=== PATIENT | male | born 1960 | race Caucasian/White ===

== ENCOUNTER 2023-11-03 21:46 | Inpatient (IN) | payer OTHER, SELFPAY ==
[2023-11-03] VITALS (10 sets, daily range): BP systolic 133–198; BP diastolic 58–108; PULSE 84–104; RESP 10–25; TEMP 37.9–38.1; O2SAT 91–100
--- NOTE | 2023-11-03 21:49 | XRR_ITS ---
PROCEDURE INFORMATION: Exam: XR Chest Exam date and time: 11/03/2023 9:56 PM Age: 62 years old Clinical indication: Other: Seizurelike activity; Patient HX: Cough; Labored breathing; Seizures TECHNIQUE: Imaging protocol: Radiologic exam of the chest. Views: 1 view. COMPARISON: No relevant prior studies available. FINDINGS: Tubes, catheters and devices: EKG monitoring leads overlie the thoracic wall. Lungs: There is no consolidation. Pleural spaces: No pleural effusion or pneumothorax. Heart/Mediastinum: The heart and mediastinum are normal in size. Bones/joints: Unremarkable. XR/XR chest 1V portable [id number] IMPRESSION: No acute findings.
--- NOTE | 2023-11-03 21:49 | CTR_ITS ---
PROCEDURE INFORMATION: Exam: CT Head Without Contrast Exam date and time: 11/03/2023 9:45 PM Age: 62 years old Clinical indication: Stroke-like symptoms; Speech disturbance and visual disturbance; RT upper extremity and RT lower extremity weakness; Additional info: EMS arrival for possible stroke. EMS reports bystanders witnessed patient have a seizure with collapse. Patient presents to er with RT fixed gaze, aphasia, and RT upper and lower ext weakness. TECHNIQUE: Imaging protocol: Computed tomography of the head without contrast. Radiation optimization: All CT scans at this facility use at least one of these dose optimization techniques: automated exposure control; mA and/or kV adjustment per patient size (includes targeted exams where dose is matched to clinical indication); or iterative reconstruction. Other technique: STROKE PROTOCOL was implemented. COMPARISON: No relevant prior studies available. RADIATION DOSE METRICS: Total DLP (mGy-cm): 2064.58 FINDINGS: Limitations: Streak and motion artifacts limit evaluation. Brain: There is no evidence of intracranial hemorrhage. No mass effect or midline shift. No territorial edema. There are moderate confluent periventricular hypodensities consistent with chronic microischemic changes of white matter. Encephalomalacia of the left temporoparietal region with scattered areas of calcification, consistent with remote infarction. Cerebral ventricles: Mild ex vacuo dilatation of the occipital horn of the left lateral ventricle. Paranasal sinuses: There are no air-fluid levels. Mastoid air cells: The visualized mastoid air cells are well aerated. Bones/joints: No acute fracture. Soft tissues: Unremarkable. CT/CT head thrombolytic 33114 IMPRESSION: 1. Encephalomalacia of the left temporoparietal region with scattered areas of calcification, consistent with remote infarction. 2. No acute intracranial findings. 3. Moderate cerebral small-vessel disease. ASSESSMENT: ASPECTS ([place] Stroke Program Early CT Score) is 10.
--- NOTE | 2023-11-03 21:57 | W.ED.SEIZURE ---
HPI - Seizure General: Chief Complaint: Neuro Symptoms/Deficit Stated Complaint: WEAKNESS Time Seen by Provider: 11/03/23 21:49 Source: EMS Mode of arrival: EMS Limitations: altered mental status History of Present Illness: HPI Narrative: 62-year-old male who is here by EMS patient had had a witnessed seizure at a hotel roughly an hour ago. Seizures unknown length EMS states that since then he has been confused with right-sided paralysis concern for possible stroke patient is unable to give any history here they state that he lives at the hotel they did not know any real history on him either he is not following any commands here. He does have right-sided paralysis. He appears to still be having possible seizure he does have a left-sided facial tics Review of Systems General: Reports: ROS unobtainable due to mental status PFS ED PFSH: Medical History (Updated 11/04/23 @ 00:30 by Michele Quigley MD) Chronic pain Osteoarthritis Glaucoma Family History (Updated 11/04/23 @ 00:30 by Michele Quigley MD) Son DVT (deep venous thrombosis) Social History (Updated 11/04/23 @ 00:28 by Michele Quigley MD) Smoking and tobacco/nicotine status: current every day tobacco/nicotine user Alcohol intake: current Alcohol intake frequency: holidays/special occasions only Lives independently: Yes Physical Exam Const: COMMON NORMALS: negative for patient oriented x3 GENERAL APPEARANCE: disheveled and frail appearing HENMT: COMMON NORMALS: normocephalic and atraumatic HEAD & SCALP: normocephalic and atraumatic Eye: COMMON NORMALS: Equal, round and reactive pupils present PUPIL: Yes Equal, round and reactive pupils present Neck/C-Spine: COMMON NORMALS: full ROM and supple Chest: COMMONS NORMALS: normal inspection of the chest and normal palpation of entire chest wall Resp: COMMON NORMALS: normal respiratory effort, No retractions, No use of accessory muscles and clear to auscultation bilaterally AUSCULTATION: clear to auscultation bilaterally Cardio: COMMON NORMALS: regular rate, regular rhythm and No murmurs present (Cardio) RATE: regular rate RHYTHM: regular rhythm GI: COMMON NORMALS: Normal to inspection, nondistended, normoactive bowel sounds present, Soft to palpation, non-tender and no masses PALPATION: Yes Soft to palpation Extremity: COMMON NORMALS: normal to inspection Neuro: COMMON NORMALS: negative for patient oriented x3 OTHER: Patient is awake but will not follow any commands he has right-sided paralysis. Psych: COMMON NORMALS: negative for mental status grossly normal Skin: COMMON NORMALS: no rashes or lesions noted and no wounds GENERAL SKIN EXAM: no rashes or lesions noted Procedures Lumbar Puncture Time Out Performed: Yes Patient Position: left lateral decubitus Skin Prep: Povidone-Iodine 1% Local Anesthetic: lidocaine 1% Amount of anesthesia used (mL): 3 Spinal Needle Gauge: 20G Interspace Used: L4-L5 Fluid Initially Obtained: clear Complications: none Procedural Sedation Indication: other (lumbar puncture) ASA Class: II Preparation: desk monitor applied and pulse oximeter IV Propofol dose (mg): 100 Patient Tolerated Procedure: well Complications: none Course Reevaluation(s): Reevaluation #1: Patient is now moving all extremities he is moving his right side well any difficulty he is still confused and is combative we will have to sedate him for CTA along with a lumbar puncture Time: 23:00 Vital Signs: Vital signs: Vital Signs Temperature 100.2 F H 11/03/23 22:18 Pulse Rate 84 11/03/23 23:25 Respiratory Rate 17 11/03/23 23:25 Blood Pressure 154/85 11/03/23 23:25 Pulse Oximetry 100 11/03/23 23:25 Oxygen Delivery Me thod Nasal Cannula 11/03/23 23:25 MDM - Seizure MDM Narrative Medical decision making narrative: Patient presents here after a seizure he did have right-sided paralysis likely from his seizure. I did speak to his son he has been using methamphetamine heavily over the last year is likely altered here as well due to his postictal state and meth abuse. I have spoke to neurologist at [facility] Dr. Nuñez after his head CT and his CTA he reviewed both images and spoke to the radiologist he believes that the thrombus noted on the CTA is from his old stroke and does not believe that it is acute patient does now have movement to all extremities he is still confused. Neurologist [facility] did not recommended lytics or thrombectomy he believes this is likely from his old stroke and his seizure. Did do a lumbar puncture for he does have a few white cells and polys will get blood cultures follow CSF cultures and start antibiotics at this time. I spoke to the hospitalist here and will admit to the ICU. Lab Data 11/03/23 22:07 11/03/23 22:07 Labs: Radiology Impressions Chest X-Ray 11/03/23 21:49 IMPRESSION: No acute findings. Head CT 11/03/23 21:49 IMPRESSION: 1. Encephalomalacia of the left temporoparietal region with scattered areas of calcification, consistent with remote infarction. 2. No acute intracranial findings. 3. Moderate cerebral small-vessel disease. ASSESSMENT: ASPECTS ([place]ia Stroke Program Early CT Score) is 10. ADDENDUM: 11/03/23 2234 THIS REPORT CONTAINS FINDINGS THAT MAY BE CRITICAL TO PATIENT CARE. The findings were verbally communicated via telephone conference with WILNER PHAM at 10:33 PM PHARMACOVIGILANCE SAFETY EXPERT on 11/03/2023. The findings were acknowledged and understood. ADDENDUM: 11/04/23 0102 The correct statement is as follows: Encephalomalacia of the left temporo-occipital region. Head/Neck CTA 11/03/23 22:10 IMPRESSION: Left distal M1 segment occlusion, acute versus chronic. IMPRESSION: 1. Normal right and left extracranial internal carotid arteries by NASCET criteria. 2. Patent bilateral vertebral arteries. THIS REPORT CONTAINS FINDINGS THAT MAY BE CRITICAL TO PATIENT CARE. The findings were verbally communicated via telephone conference with WILNER PHAM at 12:33 AM PHARMACOVIGILANCE SAFETY EXPERT on 11/04/2023. The findings were acknowledged and understood. Findings were discussed with Dr. Nuñez at 11/04/2023 12:50 AM PHARMACOVIGILANCE SAFETY EXPERT. REFERENCES: NASCET CRITERIA. The degree of stenosis in the cervical segment of the internal carotid artery is based on NASCET criteria. Normal is no stenosis. Mild is less than 50% stenosis. Moderate is 50-69% stenosis. Severe is 70% to 99% stenosis. Total occlusion is no detectable patent lumen. Laboratory Results WBC 14.62 10^3/uL (3.29-11.43) H 11/03/23 22:07 RBC 4.82 10^6/uL (3.85-5.65) 11/03/23 22:07 Hgb 15.30 g/dL (11.27-16.99) 11/03/23 22:07 Hct 46.2 % (37-53) 11/03/23 22:07 MCV 95.9 fl (82-101) 11/03/23 22:07 MCH 31.7 pg (27-33) 11/03/23 22:07 MCHC 33.1 g/dL (30-55) 11/03/23 22:07 RDW 13.0 % (12.1-15.1) 11/03/23 22:07 Plt Count 300 10^3/cmm (157-399) 11/03/23 22:07 MPV 8.9 fL (7.4-10.4) 11/03/23 22:07 Neut % (Auto) 84.1 % 11/03/23 22:07 Lymph % (Auto) 11.6 % 11/03/23 22:07 [place] % (Auto) 3.8 % 11/03/23 22:07 Eos % (Auto) 0.0 % 11/03/23 22:07 Baso % (Auto) 0.2 % 11/03/23 22:07 Neut # (Auto) 12.30 10^3/uL (1.8-7.7) H 11/03/23 22:07 Lymph # (Auto) 1.7 10^3/uL (0.8-4.8) 11/03/23 22:07 [place] # (Auto) 0.6 10^3/uL (0.2-0.9) 11/03/23 22:07 Eos # (Auto) 0.0 10^3/uL (0.0-0.8) 11/03/23 22:07 Baso # (Auto) 0.0 10^3/uL (0.0-0.1) 11/03/23 22:07 Nucleated RBC % (auto) 0 % 11/03/23 22:07 Nucleated RBCs # 0.0 /100WBC 11/03/23 22:07 PT 13.40 SECONDS (12.1-14.9) 11/03/23 22:07 INR 0.99 (0.8-1.2) 11/03/23 22:07 APTT 24.8 SECONDS (23.9-36.7) 11/03/23 22:07 Sodium 133 mmol/L (136-145) L 11/03/23 22:07 Potassium 4.2 mmol/L (3.5-5.1) 11/03/23 22:07 Chloride 95 mmol/L (98-107) L 11/03/23 22:07 Carbon Dioxide 27 mmol/L (22-29) 11/03/23 22:07 Anion Gap 15.2 (5-19) 11/03/23 22:07 BUN 9 mg/dL (8-23) 11/03/23 22:07 Creatinine 0.8 mg/dL (0.7-1.2) 11/03/23 22:07 GFR Calculation 98.3 mL/min (90-130) 11/03/23 22:07 Glucose 121 mg/dL (65-115) H 11/03/23 22:07 POC Glucose 112 mg/dL (70-110) H 11/03/23 22:06 Calculated Osmolality 276 mOsm/kg (285-295) L 11/03/23 22:07 Calcium 10.1 mg/dL (8.5-10.5) 11/03/23 22:07 Total Bilirubin 0.4 mg/dL (0.15-1.2) 11/03/23 22:07 AST 15 U/L (0-40) 11/03/23 22:07 ALT 14 U/L (0-41) 11/03/23 22:07 Alkaline Phosphatase 74 U/L (40-130) 11/03/23 22:07 Total Protein 7.7 g/dL (6.6-8.7) 11/03/23 22:07 Albumin 4.3 g/dL (3.5-5.2) 11/03/23 22:07 Globulin 3.4 g/dL (1.3-4.6) 11/03/23 22:07 Urine Color Yellow (Yellow) 11/03/23 23:10 Urine Appearance Cloudy (CLEAR) A 11/03/23 23:10 Urine pH 7 (5-7) 11/03/23 23:10 Ur Specific [place] 1.005 (1.005-1.030) 11/03/23 23:10 Urine Protein Trace (Negative) 11/03/23 23:10 Urine Glucose (UA) Norm (Normal) 11/03/23 23:10 Urine Ketones 1+ (Negative) H 11/03/23 23:10 Urine Blood 3+ (Negative) H 11/03/23 23:10 Urine Nitrate Negative (Negative) 11/03/23 23:10 Urine Bilirubin Neg (Negative) 11/03/23 23:10 Urine Urobilinogen Norm mg/dL (Negative) 11/03/23 23:10 Ur Leukocyte Esterase Negative (Negative) 11/03/23 23:10 Urine RBC 25-40 /hpf (0-2) H 11/03/23 23:10 Urine WBC 0-4 /hpf (0-5) H 11/03/23 23:10 Ur Squamous Epith Cells 0-4 /hpf (0-5) H 11/03/23 23:10 Amorphous Sediment Not Reportable 11/03/23 23:10 Urine Bacteria Trace /hpf (NONE) 11/03/23 23:10 CSF Appearance Clear (CLEAR) 11/03/23 23:40 CSF Color Colorless (COLORLESS) 11/03/23 23:40 CSF WBC 13 /uL (0-5) H 11/03/23 23:40 CSF RBC 0 10^3/uL (0-0) 11/03/23 23:40 CSF Mononuclear # Auto 0.002 10^3/uL (50-90) L 11/03/23 23:40 CSF Mononuclear WBCs % 15 % (50-90) L 11/03/23 23:40 CSF Polynuclear WBCs # 0.011 10^3/uL (0-10) 11/03/23 23:40 CSF Polynuclear WBCs % 85 % (0-10) H 11/03/23 23:40 CSF Diff Comment Yes 11/03/23 23:40 CSF Glucose 68 mg/dL (40-70) 11/04/23 Unknown CSF Total Protein 46 mg/dL (15-45) H 11/03/23 23:40 Urine Opiates Screen Negative ng/mL (Negative) 11/03/23 23:10 Ur Barbiturates Screen Negative ng/mL (Negative) 11/03/23 23:10 Ur Phencyclidine Scrn Negative ng/mL (Negative) 11/03/23 23:10 Ur Amphetamines Screen Positive ng/mL (Negative) H 11/03/23 23:10 U Benzodiazepines Scrn Positive ng/mL (Negative) H 11/03/23 23:10 Urine Cocaine Screen Negative ng/mL (Negative) 11/03/23 23:10 U Marijuana (THC) Screen Positive ng/mL (Negative) H 11/03/23 23:10 Ethyl Alcohol < 10 mg/dL (0-10) 11/03/23 22:07 Influenza Type A Ag negative (Negative) 11/03/23 22:23 Influenza Type B Ag negative (Negative) 11/03/23 22:23 SARS-CoV-2 Ag (Rapid) negative (Negative) 11/03/23 22:23 All radiology interpretation(s) finalized by discharge EKG Data EKG 1: Attestation: I personally reviewed and interpreted this EKG as follows: EKG interpretation date: 11/03/23 EKG interpretation time: 22:00 Interpretation: nsr hr [address] or t wave abnormalities qrs 78 qtc 368 Critical Care Time Critical Care Time: Critical Care Time: Yes Total Critical Care Time: 45 Attestation: The high probability of a clinically significant, sudden or life threatening deterioration of the patient's neuro system(s) required my full and direct attention, intervention and personal management. The critical care time is as shown. This time is in addition to time spent performing any reported procedures but includes the following: [x] Data and vital sign review and interpretation [x] Patient assessment, examination and intervention [x] Documentation [x] Medication orders and management Discharge Plan Discharge Patient Disposition: Admitted As Inpatient Clinical Impression: Seizure, Methamphetamine abuse Condition: Stable Coding Level of Care Code ED Home Care Physical Therapist for Edgar Patel NIH stroke score NIHSS Level Of Consciousness - 1a: 2 Level Of Consciousness Questions - 1b: Neither Correct Level Of Consciousness Commands - 1c: Neither Correct Best Gaze - 2: Partial Gaze Palsy Visual Steinberg - 3: No Visual Loss Facial Palsy - 4: Minor Paralysis Motor Arm Right - 5: No Movement Motor Arm Left - 5: No Drift Motor Leg Right - 6: No Movement Motor Leg Left - 6: No Drift Limb Ataxia - 7: Absent Sensory - 8: Normal Best Language - 9: Mute; Global Aphasia Dysarthia - 10: Normal Extinction And Inattention - 11: 1 Score Total Score: 20
--- NOTE | 2023-11-03 22:00 | ECG_ITS ---
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 Measurements Intervals [place] Rate: 93 P: 84 NC: 151 QRS: 75 QRSD: 78 T: 58 QT: 317 QTc: 396 Interpretive Statements SINUS RHYTHM POSSIBLE LEFT ATRIAL ENLARGEMENT [-0.1mV P-WAVE IN V1/V2] MINIMAL ST DEPRESSION [0.025+ mV ST DEPRESSION] No previous ECG available for comparison Electronically Signed On 11-04-2023 7:49:22 COUNTER CHECKER by Lewis Hardin M.D. [id number]
[2023-11-03] MEDS: LORazepam 2 mg/mL INJ 10 mL MDV IVP (22:03)
[2023-11-03 22:08] LABS: Glucose Point of Care 112 mg/dL (70-110)
--- NOTE | 2023-11-03 22:10 | CTR_ITS ---
PROCEDURE INFORMATION: Exam: CTA Head With Contrast, Arteriography Exam date and time: 11/03/2023 11:28 PM Age: 62 years old Clinical indication: Speech disturbance and weakness; Patient HX: EMS arrival for possible stroke. EMS reports bystanders witnessed patient have a seizure with collapse. Patient presents to er with RT fixed gaze, aphasia, and RT upper and lower ext weakness. ; Additional info: CVA TECHNIQUE: Imaging protocol: Computed tomographic angiography of the head with contrast. Exam focused on the arteries. 3D rendering (Not supervised by radiologist): MIP and/or 3D reconstructed images were created by the technologist. Radiation optimization: All CT scans at this facility use at least one of these dose optimization techniques: automated exposure control; mA and/or kV adjustment per patient size (includes targeted exams where dose is matched to clinical indication); or iterative reconstruction. Contrast material: OMNI 350; Contrast volume: 200 ml; Contrast route: INTRAVENOUS (IV); COMPARISON: CT head thrombolytic [id number] 11/03/2023 9:45 PM RADIATION DOSE METRICS: Total DLP (mGy-cm): 1045.91 FINDINGS: ANTERIOR CIRCULATION: Right internal carotid artery: Intracranial segment is patent with no significant stenosis. No aneurysm. Right middle cerebral artery: No occlusion or significant stenosis. No aneurysm. Right anterior cerebral artery: No occlusion or significant stenosis. No aneurysm. Left internal carotid artery: Intracranial segment is patent with no significant stenosis. No aneurysm. Left middle cerebral artery: Left distal M1 segment occlusion. There is a very small M2 segment vessel arising from the area of the occlusion, raising the question of an acute versus chronic, partially recanalized occlusion. Left anterior cerebral artery: No occlusion or significant stenosis. No aneurysm. POSTERIOR CIRCULATION: Right vertebral artery: No occlusion or significant stenosis. No aneurysm. Left vertebral artery: No occlusion or significant stenosis. No aneurysm. Basilar artery: No occlusion or significant stenosis. No aneurysm. Right posterior cerebral artery: No occlusion or significant stenosis. No aneurysm. Left posterior cerebral artery: No occlusion or significant stenosis. No aneurysm. Brain: No definite mass, mass effect, or midline shift. Encephalomalacia left posterior temporo-occipital area. Cerebral ventricles: No ventriculomegaly. Bones/joints: Unremarkable. No acute fracture. Soft tissues: Unremarkable. PROCEDURE INFORMATION: Exam: CTA Neck With Contrast Exam date and time: 11/03/2023 11:28 PM Age: 62 years old Clinical indication: Speech disturbance and weakness; Patient HX: EMS arrival for possible stroke. EMS reports bystanders witnessed patient have a seizure with collapse. Patient presents to er with RT fixed gaze, aphasia, and RT upper and lower ext weakness. ; Additional info: CVA TECHNIQUE: Imaging protocol: Computed tomographic angiography of the neck with contrast. Exam focused on the cervical segments of the vasculature. 3D rendering (Not supervised by radiologist): MIP and/or 3D reconstructed images were created by the technologist. Radiation optimization: All CT scans at this facility use at least one of these dose optimization techniques: automated exposure control; mA and/or kV adjustment per patient size (includes targeted exams where dose is matched to clinical indication); or iterative reconstruction. Contrast material: OMNI 350; Contrast volume: 200 ml; Contrast route: INTRAVENOUS (IV); COMPARISON: CT head thrombolytic [id number] 11/03/2023 9:45 PM RADIATION DOSE METRICS: Total DLP (mGy-cm): 1045.91 FINDINGS: Right common carotid artery: No significant stenosis. No dissection or occlusion. Right internal carotid artery: No significant stenosis of the extracranial segment. No dissection or occlusion. Right external carotid artery: No occlusion or significant stenosis of the origin. Left common carotid artery: No significant stenosis. No dissection or occlusion. Left internal carotid artery: Mild dilatation at the carotid bifurcation suggestive of post endarterectomy changes. No stenosis or occlusion. Left external carotid artery: No occlusion or significant stenosis of the origin. Right vertebral artery: No significant stenosis. No dissection or occlusion. Left vertebral artery: No significant stenosis. No dissection or occlusion. Soft tissues: No significant soft tissue swelling. Bones/joints: No acute fracture.Multilevel degenerative disc disease without significant spinal canal stenosis. Lungs: Centrilobular emphysema. CT/CT angio headneck* [id number] IMPRESSION: Left distal M1 segment occlusion, acute versus chronic. IMPRESSION: 1. Normal right and left extracranial internal carotid arteries by NASCET criteria. 2. Patent bilateral vertebral arteries. THIS REPORT CONTAINS FINDINGS THAT MAY BE CRITICAL TO PATIENT CARE. The findings were verbally communicated via telephone conference with WILNER PHAM at 12:33 AM CLINICAL FELLOW on 11/04/2023. The findings were acknowledged and understood. Findings were discussed with Dr. Nuñez at 11/04/2023 12:50 AM CLINICAL FELLOW. REFERENCES: NASCET CRITERIA. The degree of stenosis in the cervical segment of the internal carotid artery is based on NASCET criteria. Normal is no stenosis. Mild is less than 50% stenosis. Moderate is 50-69% stenosis. Severe is 70% to 99% stenosis. Total occlusion is no detectable patent lumen.
[2023-11-03] MEDS: levETIRAcetam 1,000 MG/100 ML PREMIX 400 MG IV (22:15)
[2023-11-03] MEDS: acetaminophen 650 mg Supp PR (22:15)
[2023-11-03 22:20] LABS: Basophils % 0.2 %; Hematocrit 46.2 % (37-53); Lymphocytes # 1.7 10^3/uL (0.8-4.8); Lymphocytes % 11.6 %; Mean Corpuscular HGB Conc 33.1 g/dL (30-55); Mean Corpuscular Hemoglobin 31.7 pg (27-33); Mean Corpuscular Volume 95.9 fl (82-101); Mean Platelet Volume 8.9 fL (7.4-10.4); Monocytes # 0.6 10^3/uL (0.2-0.9); Monocytes % 3.8 %; Neutrophils % 84.1 %; Nucleated Red Blood Cells % 0 %; Platelet Count 300 10^3/cmm (157-399); Red Blood Count 4.82 10^6/uL (3.85-5.65); White Blood Count 14.62 10^3/uL (3.29-11.43)
[2023-11-03 22:33] LABS: INR 0.99 (0.8-1.2)
[2023-11-03 22:34] LABS: Partial Thromboplastin Time 24.8 SECONDS (23.9-36.7)
[2023-11-03 22:37] LABS: Alanine Aminotransferase 14 U/L (0-41); Albumin Level 4.3 g/dL (3.5-5.2); Alkaline Phosphatase 74 U/L (40-130); Anion Gap 15.2 (5-19); Aspartate Amino Transferase 15 U/L (0-40); Blood Urea Nitrogen 9 mg/dL (8-23); Calcium 10.1 mg/dL (8.5-10.5); Carbon Dioxide 27 mmol/L (22-29); Chloride 95 mmol/L (98-107); Creatinine Clr Calc Pharmacy 68.4324; Globulin 3.4 g/dL (1.3-4.6); Glomerular Filtration Rate 98.3 mL/min (90-130); Glucose 121 mg/dL (65-115); Osmolality Calculated 276 mOsm/kg (285-295); Potassium 4.2 mmol/L (3.5-5.1); Sodium 133 mmol/L (136-145); Total Bilirubin 0.4 mg/dL (0.15-1.2); Total Protein 7.7 g/dL (6.6-8.7)
[2023-11-03 22:38] LABS: Alcohol Level < 10 mg/dL (0-10)
[2023-11-03 22:43] LABS: Influenza A by IFA negative (Negative); Influenza B by IFA negative (Negative)
[2023-11-03 22:44] LABS: SARS Covid-2 Antigen negative (Negative)
[2023-11-03] MEDS: iohexol 350 mg/mL 500 mL Btl (per mL) IV (22:48)
[2023-11-03] MEDS: LORazepam 2 mg/mL INJ 10 mL MDV IV (23:12)
--- NOTE | 2023-11-03 23:15 | PC.NURSE ---
Pt BP did not cycle due to constant pt movement. Pt BP @ 2316 146/82.
[2023-11-03 23:25] LABS: Amphetamines Screen Urine Positive (Negative); Barbiturates Screen Urine Negative (Negative); Benzodiazepines Screen Urine Positive (Negative); Cocaine Screen Urine Negative (Negative); Opiate Screen Urine Negative (Negative); PCP Screen Urine Negative (Negative); THC Screen Urine Positive (Negative)
[2023-11-03 23:29] LABS: Add Urine Culture? Yes; Add Urine Microscopic? YES; Bacteria Urine TRACE /hpf; Bilirubin Urine Neg (Negative); Blood Urine 3+ (Negative); Glucose Urine UA Norm (Normal); Ketones Urine 1+ (Negative); Leukocyte Esterase Urine Negative (Negative); Nitrate Urine Negative (Negative); Protein Urine Trace (Negative); RBC Urine 25-40 /hpf (0-2); Specific Gravity, Urine 1.005 (1.005-1.030); Squamous Epithelial Cell Urine 0-4 /hpf (0-5); Urine Appearance Cloudy (CLEAR); Urine Color Yellow (Yellow); Urobilinogen Urine Norm (Negative); WBC Urine 0-4 /hpf (0-5); pH Urine 7 (5-7)
[2023-11-03] MEDS: propofol 10 mg/mL SDV 20 mL 100 MG IVP (23:45)
[2023-11-03 23:49] LABS: Cyto Order Verification No Order
[2023-11-03 23:58] LABS: Appearance CSF CLEAR (CLEAR); Color CSF COLORLESS (COLORLESS); Pathology Referral Yes
[2023-11-04] VITALS (91 sets, daily range): BP systolic 76–162; BP diastolic 45–105; PULSE 44–134; RESP 0–27; TEMP 36–38.1; O2SAT 90–100; BMI 13.8; BMI 14.3
[2023-11-04 00:01] LABS: CSF Mononuclear # 0.002 10^3/uL (50-90); Mononuclear WBC CSF % 15 % (50-90); Polynuclear Cells ,CSF # 0.011 10^3/uL (0-10); Polynuclear WBC CSF % 85 % (0-10); Red Blood Cell CSF 0 10^3/uL (0-0); White Blood Cell CSF 13 /uL (0-5)
[2023-11-04 00:26] LABS: Total Protein CSF 46 mg/dL (15-45)
[2023-11-04 00:44] LABS: Glucose CSF 68 mg/dL (40-70)
--- NOTE | 2023-11-04 01:09 | PC.NURSE ---
Phelbotimist notified RN that she witnessed pt son remove belongings from pt pockets.
[2023-11-04] MEDS: cefTRIAXone 2,000 MG in sodium chloride 0.9% (plus) 50 ML 100 MG IV (01:58)
--- NOTE | 2023-11-04 02:06 | P.HP_ITS ---
Providers/Chief Complaint 2 Admitting Physician: Michele Quigley Chief Complaint: WEAKNESS History of Present Illness 62-year-old gentleman who had recently moved to the area was brought into ER for evaluation after episode of convulsions, eyes rolling to the back of his head and right-sided weakness. Last known normal sounds like was around 9 PM. Patient is unable to provide history, received Ativan and Keppra for seizure in ER which subsided, however, been postictal, lethargic confused, restless, moving about in bed. Unable to follow directions or provide history or ROS. His son states that he has not been feeling well for several days. He suffers from chronic pain, arthritis, which it seems that he had been attempting to self treat with marijuana and amphetamine but unsuccessfully. On CT of the head he is noted to have encephalomalacia left temporoparietal region with scattered areas of calcification consistent with remote infarction of which his son was unaware. His son does state that he has chronic issues with some weakness in his right hand. Convulsions send weakness both resolved in ER. CT angiogram was requested. He was noted to have low-grade 100.2, leukocytosis 14.6. He underwent lumbar puncture. CT angiogram returned with left distal M1 segment occlusion acute versus chronic. He was assessed by neurology who further reviewed the images with radiology and the occlusion was found to be chronic without recommendation for endovascular treatment. Per patient's son he is allergic to penicillin but he is not aware of what type of allergy and is not aware of his father having a reaction as long as he has known them. Possibly in childhood. He understands the risk of cross-reactivity with penicillin related antibiotics, and is okay with starting to medicate with supervision. Review of Systems 2 General: Reports: ROS unobtainable due to mental status Medications/Allergies Allergies Allergy/AdvReac Type Severity Reaction Status Date / Time Penicillins Allergy Unknown Unknown Unverified 11/04/23 00:31 PFSH Acute 2 PFSH: Medical History Chronic pain Osteoarthritis Glaucoma Family History Son DVT (deep venous thrombosis) Social History Smoking and tobacco/nicotine status: current every day tobacco/nicotine user Alcohol intake: current Alcohol intake frequency: holidays/special occasions only Lives independently: Yes Vitals/I&O/Wt Last Vital Signs Temp 100.2 F H 11/03/23 22:18 Pulse 98 11/03/23 23:36 Resp 24 H 11/03/23 23:36 BP 176/83 11/03/23 23:36 Pulse Ox 99 11/03/23 23:30 O2 Del Method Nasal Cannula 11/03/23 23:30 Weight last 48 hrs Weight 49.895 kg Physical Exam 2 Narrative: Accompanied by his son at bedside Const: COMMON NORMALS: negative for patient oriented x3 and negative for alert GENERAL APPEARANCE: not cooperative ORIENTATION/CONSCIOUSNESS: Yes confused and Yes lethargic; not awake HENMT: COMMON NORMALS: oropharynx normal Neck/C-Spine: COMMON NORMALS: no JVD Resp: COMMON NORMALS: normal respiratory effort and clear to auscultation bilaterally AUSCULTATION: clear to auscultation bilaterally Cardio: COMMON NORMALS: no JVD, regular rhythm, S1 normal heart sound present, S2 normal heart sound present and No murmurs present (Cardio) RHYTHM: regular rhythm HEART SOUNDS: S1 normal heart sound present and S2 normal heart sound present GI: COMMON NORMALS: Normal to inspection, nondistended, normoactive bowel sounds present, Soft to palpation and non-tender PALPATION: Yes Soft to palpation Extremity: COMMON NORMALS: no joint enlargement and no pedal edema Neuro: COMMON NORMALS: moves all extremities; negative for patient oriented x3 SENSORIUM/ORIENTATION: Yes alert OTHER: Confused, moving around in bed, occasionally rises up and opens his eyes, but does not follow directions. I do not appreciate facial droop. Otherwise unable to perform other examination, but he is appearing to move all his extremities. No rigidity Data 11/03/23 22:07 11/03/23 22:07 Micro: Microbiology 11/04/23 01:18 Blood Culture - Preliminary Blood SPECIMEN COLLECTED 11/04/23 01:15 Blood Culture - Preliminary Blood SPECIMEN COLLECTED A&P Assessment and plan (1) Seizure: GTC with convulsive episode at home, at the same time with focal neurological complaints, right-sided weakness, received Ativan, Keppra. Convulsions had resolved, he is postictal, right-sided weakness has resolved as well. Noted encephalomalacia in left parietotemporal region with suspected prior stroke. Continue Keppra. Would benefit from amphetamine cessation and medication of recurrent stroke risk factors. Seizure precautions. Follow-up with neurology. (2) Focal neurological deficit: Likely secondary to seizure but concern for superimposed acute CVA, neurology was consulted, M1 distal thrombosis on CT angiogram, but this was found to be old, no recommendation for endovascular therapy at this time. He is certainly at risk of CVA, cannot exclude additional small stroke but is outside the window for tPA. Recommendation for assessment with MRI brain when he is able to undergo the study. Hopefully tomorrow if mental status improves. Discussed with his son, definitely risk factors include methamphetamine abuse and cigarette smoking. Will need to discuss with him once he is more awake regarding cessation, risks, case management consultation for resources. (3) Fever: Has not been feeling well for several days. With low-grade fever 100.5 in ER. Unclear whether some degree of aspiration/pneumonitis associated with seizure, noted on 2 L nasal cannula. Lumbar puncture was obtained in ER, reviewed CSF studies with ER physician. Reviewed vitals, CBC, CMP, INR, UA, UDS, rapid influenza, rapid COVID, CT head, head and neck CTA, chest x-ray. Reviewed ER note, discussed presentation and condition with ER physician. Discussed with his son, CSF studies with more amount of WBCs, clear, 13 cells, 85% PMN, mildly elevated total protein minutely elevated total protein, glucose 68. Not overly suggestive of bacterial meningitis, but there are some PMN there. Possibly secondary to seizure. Lower possibility of early bacterial meningitis, discussed empiric coverage with antibiotics. He reportedly has had history of penicillin allergy but son is not aware of reaction and has not aware of him having had a reaction as long as he is not him, possibly childhood reaction. He is okay with trial of ceftriaxone, vancomycin. Will additionally add acyclovir. Assess MRI brain when possible. Follow-up CSF culture. Minimal microscopic hematuria in UA, otherwise not suggestive of UTI. Rocephin as above. Follow-up urine culture. Possible mild aspiration pneumonitis. Reassess respiratory condition and monitor oxygenation. Obtain respiratory viral panel. His son denies that he had other specific complaints, has not had any vomiting, diarrhea, rashes. Has had longstanding issues with chronic pain which he self treats with marijuana, methamphetamine which she smokes. Without known injection use. Blood cultures obtained. Follow-up. (4) Acute encephalopathy: Postictal after seizure, possible additional underlying flexion, possible early meningitis though suspect less likely, question of possible CVA. He has not been feeling well for several days. Additional workup as above. Reportedly only drinks a few beers on occasion. No regular alcohol use. Urine positive for amphetamines, monitor for any complications. Son denies synthetic marijuana use. (5) Methamphetamine abuse: Will need to discuss with him once he is more awake regarding cessation, risks, case management consultation for resources. Plan Microscopic hematuria: Follow-up urine culture. Will need follow-up for resolution of microscopic materia or additional workup in case of lack of resolution for causes including malignancy with history of smoking. Severe malnutrition: BMI 13.9, sarcopenia, please discuss with them further once he is able to communicate. Add protein supplements to meals. Confirm he is up-to-date with recommended screenings. 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 Chronic pain, osteoarthritis: Reportedly was recommended to take gabapentin in the past which he takes once a while. Smoking addiction. Will need to discuss with him once he is more awake regarding cessation, risks. Attestations 2 Medical Necessity Statement*: Admission of over 2 midnights anticipated for assessment and management of acute encephalopathy, seizure, focal neurologic deficit, possible CVA, fever, additional comorbidities as above. Diagnoses Seizure R56.9 Focal neurological deficit R29.818 Fever R50.9 Acute encephalopathy G93.40 Methamphetamine abuse F15.10
--- NOTE | 2023-11-04 02:16 | PC.NURSE ---
Physician Notification: Pt arrived to ICU 7 thrashing in bed, screaming, kicking legs continuously. Pt is not responsive to verbal deescalation. Dr. Quigley called at approximately 0215. Dr. Quigley reported that he would enter orders for Ativan.
[2023-11-04] MEDS: dexmedeTOMIDine 0.9 % NaCL 400 MCG/100 ML PREMIX 1.12999999999999989 MCG IV (02:46)
[2023-11-04] MEDS: sodium chloride 0.9% 1,000 ML 75 ML IV (02:47)
[2023-11-04] MEDS: LORazepam 2 mg/mL INJ 1 mL 1 MG IVP (03:39)
[2023-11-04] MEDS: vancomycin 1,000 MG in sodium chloride 0.9% 250 ML 250 MG IV (04:57)
[2023-11-04] MEDS: aspirin 300 mg Supp PR (04:58)
[2023-11-04 05:05] LABS: Basophils % 0.2 %; Hematocrit 39.6 % (37-53); Lymphocytes # 1.5 10^3/uL (0.8-4.8); Lymphocytes % 9.7 %; Mean Corpuscular HGB Conc 32.6 g/dL (30-55); Mean Corpuscular Hemoglobin 30.9 pg (27-33); Mean Platelet Volume 9.6 fL (7.4-10.4); Monocytes % 6.2 %; Neutrophils # 12.92 10^3/uL (1.8-7.7); Neutrophils % 83.4 %; Nucleated Red Blood Cells % 0 %; Platelet Count 262 10^3/cmm (157-399); Red Blood Count 4.17 10^6/uL (3.85-5.65); White Blood Count 15.48 10^3/uL (3.29-11.43)
[2023-11-04 05:17] LABS: Estmated Average Glucose 120; Hemoglobin A1C 5.8 % (4.0-6.0)
[2023-11-04 05:29] LABS: Alanine Aminotransferase 9 U/L (0-41); Albumin Level 3.6 g/dL (3.5-5.2); Alkaline Phosphatase 62 U/L (40-130); Anion Gap 12.6 (5-19); Aspartate Amino Transferase 13 U/L (0-40); Blood Urea Nitrogen 7 mg/dL (8-23); Calcium 9.2 mg/dL (8.5-10.5); Carbon Dioxide 26 mmol/L (22-29); Chloride 98 mmol/L (98-107); Creatinine Clr Calc Pharmacy 70.7426; Globulin 2.7 g/dL (1.3-4.6); Glomerular Filtration Rate 114.6 mL/min (90-130); Glucose 126 mg/dL (65-115); Magnesium 1.6 mg/dL (1.7-2.3); Osmolality Calculated 276 mOsm/kg (285-295); Potassium 3.6 mmol/L (3.5-5.1); Sodium 133 mmol/L (136-145); Total Bilirubin 0.2 mg/dL (0.15-1.2); Total Protein 6.3 g/dL (6.6-8.7)
[2023-11-04 05:33] LABS: Chol HDL Ratio 3.98 mg/dL (1.0-5.00); Cholesterol 163 mg/dL (0-200); HDL Cholesterol 41 mg/dL (60-100); LDL Cholesterol Calculated 108 mg/dL (50-129); LDL HDL Ratio 2.63 RATIO (0.00-3.22); Triglycerides 69 mg/dL (0-150)
[2023-11-04 07:00] LABS: Adenovirus Not Detected (NOT DETECT); Chlamydia Pneumoniae Not Detected (NOT DETECT); Coronavirus 229E,HKU1,NL63,OC4 Not Detected (NOT DETECT); Human Metapneumovirus Not Detected (NOT DETECT); Human Rhinovirus/Enterovirus Not Detected (NOT DETECT); Influenza A Not Detected (NOT DETECT); Influenza A H1 Not Detected (NOT DETECT); Influenza A H1-2009 Not Detected (NOT DETECT); Influenza A H3 Not Detected (NOT DETECT); Influenza B Not Detected (NOT DETECT); Mycoplasma Pneumoniae Not Detected (NOT DETECT); Parainfluenza Virus Type 1 Not Detected (NOT DETECT); Parainfluenza Virus Type 2 Not Detected (NOT DETECT); Parainfluenza Virus Type 3 Not Detected (NOT DETECT); Parainfluenza Virus Type 4 Not Detected (NOT DETECT); Respiratory Syncytial Virus A Not Detected (NOT DETECT); Respiratory Syncytial Virus B Not Detected (NOT DETECT); SARS-COV-2 Not Detected (NOT DETECT)
[2023-11-04] MEDS: SODIUM CHLORIDE 0.9% IV ×3 (07:51→23:10)
[2023-11-04] MEDS: pantoprazole 40 mg SDV IVP (07:51)
[2023-11-04] MEDS: ACYCLOVIR IV ×3 (07:51→23:10)
--- NOTE | 2023-11-04 09:15 | PC.PHAR ---
PT UNABLE TO VERIFY IF HE TAKES ANY MEDICATIONS. 11/04/23. LEFT MESSAGE WITH ARUN ENGLISH AND NO ANSWER FROM JARRETT JAY.
[2023-11-04] MEDS: haloperidol inj 5 mg/mL INJ 1 mL 2 MG IM (09:16)
[2023-11-04] MEDS: heparin 5,000 unit/mL INJ 1 mL 5000 UNIT SUBCUT ×2 (09:17→20:24)
[2023-11-04] MEDS: levETIRAcetam 1,000 MG/100 ML PREMIX 400 MG IV ×2 (09:17→21:47)
--- NOTE | 2023-11-04 09:53 | PC.PHAR ---
SISTER PHONED IN AND VERIFIED PT NOT TAKING ANY MEDICATIONS AT ALL AND PREFERS [facility] IF MEDICATIONS ARE NECESSARY.
--- NOTE | 2023-11-04 11:14 | PC.SLP ---
Nursing requested to hold evaluation until Sunday.
--- NOTE | 2023-11-04 11:37 | CTR_ITS ---
PROCEDURE INFORMATION: Exam: CT Chest Without Contrast; Diagnostic Exam date and time: 11/04/2023 1:25 PM Age: 62 years old Clinical indication: Other: Encephalopathy, anorexia, iv drug user TECHNIQUE: Imaging protocol: Diagnostic computed tomography of the chest without contrast. Radiation optimization: All CT scans at this facility use at least one of these dose optimization techniques: automated exposure control; mA and/or kV adjustment per patient size (includes targeted exams where dose is matched to clinical indication); or iterative reconstruction. COMPARISON: CR (CHEST, ) 11/03/2023 9:56 PM RADIATION DOSE METRICS: Total DLP (mGy-cm): 386.82 FINDINGS: Thyroid: Grossly unremarkable. Lungs: No focal consolidation. No pneumothorax. Pleural spaces: No pleural effusion. Heart: No cardiomegaly. No pericardial effusion. Coronary arteries: There are incidental coronary artery calcifications. Mediastinal space: Trachea and airway are grossly patent. No evidence of mediastinal hemorrhage or hematoma. Lymph nodes: No evidence of mediastinal adenopathy. Evaluation for hilar adenopathy is limited by lack of IV contrast. Vasculature: Mild atherosclerosis without aneurysmal dilatation of the thoracic aorta. Evaluation for acute vascular injury or thrombosis is limited by lack of IV contrast. Bones/joints: There is a soft tissue mass in the left paraspinal region extending into the left T8-9 neural foramen measuring approximately 3.5 cm transverse by 2.3 cm AP by 1.7 cm craniocaudal with smooth bony erosion of the left T8 transverse process/neural foramen. There appears to be extension into the transverse process (image 29 of the sagittal series 8). No evidence of acute fracture. Soft tissues: No evidence of fluid collection or hematoma in the superficial soft tissues. PROCEDURE INFORMATION: Exam: CT Abdomen And Pelvis Without Contrast Exam date and time: 11/04/2023 1:25 PM Age: 62 years old Clinical indication: Other: Encephalopathy, anorexia, iv drug user TECHNIQUE: Imaging protocol: Computed tomography of the abdomen and pelvis without contrast. Radiation optimization: All CT scans at this facility use at least one of these dose optimization techniques: automated exposure control; mA and/or kV adjustment per patient size (includes targeted exams where dose is matched to clinical indication); or iterative reconstruction. COMPARISON: CR (CHEST, ) 11/03/2023 9:56 PM RADIATION DOSE METRICS: Total DLP (mGy-cm): 386.82 FINDINGS: Liver: No evidence of focal hepatic lesion within limitation of a noncontrast exam. Hepatic cysts noted. Gallbladder and bile ducts: Vicarious excretion of contrast within the gallbladder is noted. Otherwise unremarkable. No evidence of intra-hepatic or extra-hepatic biliary dilatation. Pancreas: Grossly unremarkable. Spleen: Grossly unremarkable. Adrenal glands: Grossly unremarkable. Kidneys and ureters: There are simple appearing peripelvic renal cysts for which dedicated imaging follow-up is not required. Otherwise no evidence of renal parenchymal abnormality. No hydronephrosis or ureteral stone. Excreted contrast is noted within the renal collecting systems. Stomach and bowel: No evidence of bowel obstruction or perienteric inflammatory changes. Appendix: Normal appendix. Intraperitoneal space: No evidence of free air or fluid collection. Vasculature: Extensive aorto bi-iliac atherosclerosis without evidence of aneurysmal dilitation of abdominal aorta. Lymph nodes: No evidence of adenopathy. Urinary bladder: Distended with excreted contrast. Otherwise grossly unremarkable. Reproductive: Grossly unremarkable. Bones/joints: No evidence of acute fracture or aggresive osseous lesion. Soft tissues: No evidence of fluid collection or hematoma in the superficial soft tissues. CT/[place] [id number] IMPRESSION: 1. No evidence of acute abnormality within limitations of a noncontrast exam. 2. 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 Follow-up nonemergent MRI of the thoracic spine with/without contrast is recommended. IMPRESSION: 1. No evidence of acute abnormality in the abdomen or pelvis within limitations of a noncontrast exam.
--- NOTE | 2023-11-04 11:39 | ECG_ITS ---
[facility] Test Date: 2023-11-04 Pat Name: Reuben Fontanez Department: Room: [facility] Gender: Male House Superintendent: : 1960 Requested By: Dimitri Cruz Order Number: [id number] [place] MD: Lewis Hardin M.D. Measurements Intervals [place] Rate: 53 P: 75 ND: 155 QRS: 71 QRSD: 90 T: 64 QT: 465 QTc: 438 Interpretive Statements SINUS BRADYCARDIA Compared to ECG 11/03/2023 22:00:28 Sinus rhythm no longer present ST (T wave) deviation no longer present Electronically Signed On 11-04-2023 18:03:24 [employer]ENSIC SCIENCE EXAMINER by Lewis Hardin M.D. [id number]
--- NOTE | 2023-11-04 11:41 | PM.PN ---
Subjective Subjective: Patient was seen this morning, nursing staff at bedside, patient continues to be agitated does not follow commands pulling out at his IVs, he is in 2 point restraints, due to agitation, normotensive, no significant arrhythmia events, temperature is 96.8 he is on 3 L, pupils are equal round reactive to light, he looks disheveled, severely malnourished severe protein calorie malnutrition, severe physical deconditioning BMI 14.2, according to nursing staff and the report that they received, patient normally has good mentation, but functionally he remains in bed and according to family uses drugs such as amphetamines, on examination I cannot discern any tracking for IV drug use, no discernible skin lesions he does have several tattoos, he does awaken to sternal rub, becomes agitated tries to pull on things in his bed, tries to get up out of bed, does not follow commands, on admission there was concerns for CVA, his CTA shows left distal M1 segment occlusion acute versus chronic, after discussion with neurology and ER provider it was discerned that it was favored to be chronic he was also found to have encephalomalacia of the left temporoparietal region consistent with remote infarction, neurology was consulted by ER provider, he was not deemed a candidate for tPA nor endovascular procedure, he was also had underwent a lumbar puncture emergency room due to persistent encephalopathy lumbar tap so far culture shows rare WBCs no organisms, 13 WBCs, total protein 46, glucose 68, urine positive for amphetamines, marijuana, there was concerns for right-sided weakness during his ER visit, I cannot discern any right-sided weakness currently, he is pulling on bilateral upper and lower extremities equally in my opinion, but does not follow commands for neurologic testing, there is also concern for seizures on admission, no recurrent seizures during his ICU initial stay Vitals/I&O/Wt Last Vital Signs Temp 96.8 F L 11/04/23 08:00 Pulse 66 11/04/23 08:00 Resp 13 11/04/23 08:00 BP 103/55 11/04/23 08:00 Pulse Ox 99 11/04/23 08:00 O2 Del Method Nasal Cannula 11/04/23 04:00 O2 Flow Rate 3 11/04/23 04:00 11/03/23 11/04/23 11/04/23 22:59 06:59 14:59 Intake Total 23.330 / 23.330 7.524 / 7.524 Balance 23.330 / 23.330 7.524 / 7.524 Weight last 48 hrs Weight 44.906 kg Weight 45.132 kg Weight 45.269 kg Weight 49.895 kg Physical Exam Const: EXAM LIMITATIONS: altered mental status and behavioral limitations GENERAL APPEARANCE: disheveled, ill appearing and frail appearing OTHER: Severe protein calorie malnutrition, BMI 14.2, muscle wasting bilateral calfs bilateral thighs bilateral arms, temporal muscle wasting Eye: OTHER: Pupils equal round reactive to light Chest: OTHER: Several tattoos Resp: COMMON NORMALS: normal respiratory effort, No retractions, No use of accessory muscles and clear to auscultation bilaterally AUSCULTATION: clear to auscultation bilaterally Cardio: COMMON NORMALS: regular rate, regular rhythm, S1 normal heart sound present and S2 normal heart sound present RATE: regular rate RHYTHM: regular rhythm HEART SOUNDS: S1 normal heart sound present and S2 normal heart sound present GI: COMMON NORMALS: Normal to inspection, nondistended, normoactive bowel sounds present and non-tender Extremity: COMMON NORMALS: no pedal edema Neuro: OTHER: Does not follow neurologic testing has bilateral movement of upper and bilateral lower extremities, Data 11/04/23 04:05 11/04/23 04:05 Micro: Microbiology 11/03/23 23:40 Gram Stain - Final Cerebrospinal Fluid 11/04/23 01:18 Blood Culture - Preliminary Blood SPECIMEN COLLECTED 11/04/23 01:15 Blood Culture - Preliminary Blood SPECIMEN COLLECTED A&P Assessment and plan (1) Seizure: (2) Focal neurological deficit: (3) Fever: (4) Acute encephalopathy: (5) Methamphetamine abuse: (6) Severe protein-calorie malnutrition: (7) Physical deconditioning: (8) Muscle wasting: (9) Drug abuse: (10) Encephalomalacia with cerebral infarction: Plan Acute encephalopathy -Etiology unclear -Could be from seizure -Could be from fevers possible viral versus bacterial meningitis -Could be from possible CVA Plan -Neurochecks -Aspiration precautions -?Stroke scale -Monitor mentation closely -Haldol Ativan as needed for agitation -Ordered Pro-Vel, CRP, sed rate, ammonia levels -No history of alcohol abuse reported, by family members, EtOH levels within normal limits, nonetheless CIWA scoring, thiamine -MRI brain Possible acute CVA -On admission there was concerns for right-sided weakness which brought him to the emergency room -I cannot discern any weakness currently he is pulling on both arms both legs but does not follow commands -He was found to have IMPRESSION: 1. Encephalomalacia of the left temporoparietal region with scattered areas of calcification, consistent with remote infarction. 2. No acute intracranial findings. 3. Moderate cerebral small-vessel disease. IMPRESSION: Left distal M1 segment occlusion, acute versus chronic. -Certainly this could be playing a role, certainly as timeframe is questionable, what brought patient into the hospital with seizures, this could be playing more of an acute role -Time frame is unknown but after discussion with ER provider and neurology it was deemed to be more chronic -Was not a candidate for tPA or endovascular procedure Plan -Neurochecks -Aspiration precautions -NIH stroke scale -Continue rectal aspirin -MRI brain -Will allow for permissive hypertension -PT OT, speech therapy eval once mentation allows -IV fluids -Will consult neurology on Sunday Seizures -Will patient into the hospital was episodes of convulsions, eyes rolling back, right-sided weakness -Could be seizures related to possible CVA with his left temporal encephalomalacia? -No prior history of seizures -Received Ativan and Keppra in the emergency room -Continue Keppra Fever -History of drug abuse -Status post lumbar puncture -Has evidence of elevated white blood cells in LP studies -Continue vancomycin, will broaden antibiotic coverage to meropenem because of penicillin allergy -Continue acyclovir -Follow culture results -Follow viral studies -hiv, acute hep panel ordered -Blood cultures ordered -Follow echocardiogram -Will order CT chest abdomen pelvis Drug abuse, urine positive for marijuana, methamphetamines Microscopic hematuria: Follow-up urine culture. Will need follow-up for resolution of microscopic materia or additional workup in case of lack of resolution for causes including malignancy with history of smoking. Severe malnutrition: BMI 13.9, sarcopenia, please discuss with them further once he is able to communicate. Add protein supplements to meals. Confirm he is up-to-date with recommended screenings. 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 Chronic pain, osteoarthritis: Reportedly was recommended to take gabapentin in the past which he takes once a while. Smoking addiction. Will need to discuss with him once he is more awake regarding cessation, risks. Attestations Medical Necessity Statement*: Patient requires hospitalization for acute encephalopathy, possible CVA, seizures, fever, drug abuse Diagnoses Seizure R56.9 Focal neurological deficit R29.818 Fever R50.9 Acute encephalopathy G93.40 Methamphetamine abuse F15.10 Severe protein-calorie malnutrition E43 Physical deconditioning R53.81 Muscle wasting M62.50 Drug abuse F19.10 Encephalomalacia with cerebral infarction G93.89; I63.9
[2023-11-04] MEDS: meropenem 1,000 MG in sodium chloride 0.9% (plus) 50 ML 100 MG IV ×2 (12:07→20:24)
[2023-11-04] MEDS: magnesium sulfate premix 1 GM/100 ML PIGGYBACK IV (12:07)
[2023-11-04 13:30] LABS: Erythrocyte Sedimentation Rate 17 mm/hr (0-10)
[2023-11-04 13:32] LABS: Ammonia 39 umol/L (16-60)
[2023-11-04 13:35] LABS: Troponin(5th) Baseline 10 ng/L (0-15)
[2023-11-04 13:52] LABS: Hepatitis A Antibody IgM Non-Reactive (Nonreactive); Hepatitis B Core IgM Non-Reactive (Nonreactive); Hepatitis B Surface Antigen Non-Reactive (Nonreactive); Hepatitis C Virus Antibody Non-Reactive (Nonreactive)
[2023-11-04 14:00] LABS: Procalcitonin 0.06 ng/mL (0-0.5)
[2023-11-04 14:07] LABS: HIV 1 & 2 Antibody Non-Reactive (Non-Reactiv); HIV 1 & 2 Antigen Non-Reactive (Non-Reactiv)
[2023-11-04 14:08] LABS: Creatine Phosphokinase 527 U/L (39-308)
[2023-11-04] MEDS: dexmedeTOMIDine 0.9 % NaCL 400 MCG/100 ML PREMIX 5.66000000000000014 MCG IV (15:03)
[2023-11-04 15:24] LABS: Troponin 5 2HR 8.56 ng/L (0-15)
[2023-11-04 15:26] LABS: Troponin 5 2HR Delta -1.44 ABS# (0-10)
[2023-11-04 15:35] LABS: Anion Gap 12.8 (5-19); Blood Urea Nitrogen 7 mg/dL (8-23); Calcium 9.6 mg/dL (8.5-10.5); Carbon Dioxide 24 mmol/L (22-29); Chloride 103 mmol/L (98-107); Creatinine Clr Calc Pharmacy 70.3884; Glomerular Filtration Rate 114.6 mL/min (90-130); Glucose 108 mg/dL (65-115); Magnesium 2.2 mg/dL (1.7-2.3); Osmolality Calculated 281 mOsm/kg (285-295); Potassium 3.8 mmol/L (3.5-5.1); Sodium 136 mmol/L (136-145)
[2023-11-04] MEDS: sodium chloride 0.9% 1,000 ML 125 ML IV (15:50)
[2023-11-04] MEDS: vancomycin 750 MG in sodium chloride 0.9% 250 ML 250 MG IV (17:05)
[2023-11-04 19:59] LABS: Troponin 5 6HR 7.13 ng/L (0-15)
[2023-11-04 20:03] LABS: Troponin 5 6HR Delta -2.87 ng/L (0-12)
[2023-11-05] VITALS (49 sets, daily range): BP systolic 85–128; BP diastolic 47–72; PULSE 53–100; RESP 12–23; TEMP 36.7; O2SAT 92–100
[2023-11-05] MEDS: sodium chloride 0.9% 1,000 ML 125 ML IV (01:43)
[2023-11-05] MEDS: aspirin 300 mg Supp PR (02:46)
[2023-11-05] MEDS: LORazepam 2 mg/mL INJ 10 mL MDV 1 MG IVP ×4 (04:28→21:28)
[2023-11-05] MEDS: meropenem 1,000 MG in sodium chloride 0.9% (plus) 50 ML 100 MG IV ×2 (04:43→12:32)
[2023-11-05] MEDS: vancomycin 750 MG in sodium chloride 0.9% 250 ML 250 MG IV (04:45)
[2023-11-05 04:58] LABS: Basophils % 0.4 %; Eosinophils % 0.2 %; Lymphocytes # 2.5 10^3/uL (0.8-4.8); Lymphocytes % 27.6 %; Mean Corpuscular HGB Conc 32.6 g/dL (30-55); Mean Corpuscular Hemoglobin 31.5 pg (27-33); Mean Corpuscular Volume 96.4 fl (82-101); Mean Platelet Volume 9.3 fL (7.4-10.4); Monocytes # 0.8 10^3/uL (0.2-0.9); Monocytes % 8.4 %; Neutrophils # 5.66 10^3/uL (1.8-7.7); Neutrophils % 63.2 %; Nucleated Red Blood Cells % 0 %; Platelet Count 238 10^3/cmm (157-399); Red Blood Count 3.94 10^6/uL (3.85-5.65); Red Cell Distribution Width 13.2 % (12.1-15.1); White Blood Count 8.97 10^3/uL (3.29-11.43)
--- NOTE | 2023-11-05 05:07 | PC.NURSE ---
Pt hand IV became puffy looking after starting meropenem dose. Pt had been flopping around in bed and agitated shortly before meropenem was started. IV removed, dr notified. telepharmacy contacted to see what was recommended. Telepharmacy educated that cold compress would be suggested. Will attempt to place cold compress. Pt resistant to treatment.
[2023-11-05 05:18] LABS: Alanine Aminotransferase 11 U/L (0-41); Albumin Level 3.2 g/dL (3.5-5.2); Alkaline Phosphatase 55 U/L (40-130); Anion Gap 13.9 (5-19); Aspartate Amino Transferase 22 U/L (0-40); Blood Urea Nitrogen 10 mg/dL (8-23); Calcium 8.9 mg/dL (8.5-10.5); Carbon Dioxide 23 mmol/L (22-29); Chloride 110 mmol/L (98-107); Creatinine Clr Calc Pharmacy 61.5898; Globulin 2.3 g/dL (1.3-4.6); Glomerular Filtration Rate 98.3 mL/min (90-130); Glucose 100 mg/dL (65-115); Magnesium 1.8 mg/dL (1.7-2.3); Osmolality Calculated 295 mOsm/kg (285-295); Phosphorus 3.7 mg/dL (2.5-4.5); Potassium 3.9 mmol/L (3.5-5.1); Sodium 143 mmol/L (136-145); Total Bilirubin 0.3 mg/dL (0.15-1.2); Total Protein 5.5 g/dL (6.6-8.7)
[2023-11-05 05:28] LABS: Chol HDL Ratio 3.92 mg/dL (1.0-5.00); Cholesterol 149 mg/dL (0-200); HDL Cholesterol 38 mg/dL (60-100); LDL Cholesterol Calculated 92 mg/dL (50-129); LDL HDL Ratio 2.42 RATIO (0.00-3.22); Triglycerides 97 mg/dL (0-150)
[2023-11-05 05:34] LABS: Procalcitonin 0.06 ng/mL (0-0.5)
[2023-11-05] MEDS: pantoprazole 40 mg SDV IVP (05:49)
[2023-11-05] MEDS: ACYCLOVIR IV (07:39)
[2023-11-05] MEDS: SODIUM CHLORIDE 0.9% IV (07:39)
[2023-11-05] MEDS: heparin 5,000 unit/mL INJ 1 mL 5000 UNIT SUBCUT ×2 (09:17→20:04)
[2023-11-05] MEDS: levETIRAcetam 1,000 MG/100 ML PREMIX 400 MG IV (09:18)
[2023-11-05] MEDS: folic acid 1 mg Tablet PO (09:20)
[2023-11-05] MEDS: multivitamin therapeutic Tablet 1 TAB PO (09:20)
[2023-11-05] MEDS: thiamine 100 mg Tablet PO (09:20)
--- NOTE | 2023-11-05 10:11 | PC.NURSE ---
Took patient for 10 AM MRI. There is another patient on the table. Will attempt again when able.
--- NOTE | 2023-11-05 13:14 | PC.NURSE ---
Patient's son, Fabio [phone], was called by me to clarify the patient's baseline mental status. Son tells nurse that patient normally manages all of his own bills, doesn't drive due to no emt driver's license, and even replaced a vehicle motor last week. Dr. Lao notified. Plan is to try for MRI.
--- NOTE | 2023-11-05 13:53 | P.PN_ITS ---
Subjective 2 Subjective: Patient is awake and alert. He denies any complaints. He does not answer most of my questions. He is conversational but is very tangential and does answer the question hand. He is able to answer his first and last name. Otherwise he does not answer any orientation questions with respect to time, place, or situation. He is unable to provide any other pertinent clinical information which further limits history. Afebrile. Medications: Reviewed: Yes Vitals/I&O/Wt Last Vital Signs Temp 98.3 F 11/04/23 19:00 Pulse 100 11/05/23 12:00 Resp 17 11/05/23 09:30 BP 106/57 11/05/23 12:00 Pulse Ox 97 11/05/23 12:00 O2 Del Method Room Air 11/05/23 08:27 O2 Flow Rate 3 11/04/23 04:00 11/04/23 11/05/23 11/05/23 22:59 06:59 14:59 Intake Total 638.001 / 2153.525 1627.913 / 3781.438 1365.765 / 1365.765 Output Total 400 / 400 Balance 638.001 / 2153.525 1627.913 / 3781.438 965.765 / 965.765 Weight last 48 hrs Weight 44.906 kg Weight 45.132 kg Weight 45.269 kg Weight 49.895 kg Physical Exam 2 Narrative: General: Patient is awake. Frail-appearing. Cachectic appearing. Head: Temporal wasting. EOM intact. Neck: No JVD. Cardiovascular: RRR. No gallops. No murmurs. Lungs: Clear to auscultation, no use of accessory muscles, no crackles or wheezes. Skin: No jaundice. No rashes. Abdomen: Normal bowel sounds, abdomen soft and nontender. Genito Urinary: Genital exam not performed since complaints not related. Rectal: Rectal exam not performed since no symptoms indicated blood loss. Extremities: No cyanosis or clubbing. Musculoskeletal: No swollen or erythematous joints. Neurological: Moves all 4 extremities. No myoclonus. Oriented to name only. He is slightly agitated by questioning. A full neurological exam was not performed. Data 11/05/23 04:40 11/05/23 04:40 Micro: Microbiology 11/03/23 23:40 Gram Stain - Final Cerebrospinal Fluid CSF Culture - Preliminary 11/03/23 23:10 Urine Culture - Final Urine,Clean Catch 11/04/23 01:18 Blood Culture - Preliminary Blood NEGATIVE TO DATE 11/04/23 01:15 Blood Culture - Preliminary Blood NEGATIVE TO DATE A&P Assessment and plan (1) Methamphetamine abuse: (2) Drug abuse: (3) Severe protein-calorie malnutrition: (4) Muscle wasting: (5) Encephalomalacia with cerebral infarction: (6) Acute encephalopathy: (7) Seizure: (8) Focal neurological deficit: (9) Physical deconditioning: (10) Fever: Plan Altered mental status -Unclear etiology, he is awake and alert, moving all extremities, slightly agitated by questions -He is agitated, not oriented; code 10 reportedly called on 11/04 for severe agitation -Suspect drug-induced/drug withdrawal encephalopathy, stroke still within the differential, infection possible -CSF reviewed, WBC 13; -Proceed with an MRI if patient permits -Neurology available on 11/06, anticipate need for consult -Continue empiric aspirin -Speech eval is pending, hopefully can start diet afterwards Agitation, severe -Currently on Precedex, attempt to wean Seizure-like activity upon admission -Monitor for recurrence -Continue Keppra -MRI pending -Anticipate neurology evaluation -Ativan if needed Fever -Resolved -HIV, acute hepatitis, respiratory pathogen panel, flu, COVID, RSV negative -UA not consistent with infection -CT C/A/P negative for acute abnormality, T8-T9 paraspinal mass noted -CBC normal with normal differential today -Procalcitonin normal -No meningitic signs -Follow-up MRI -Hold acyclovir, meropenem, Vanco for now; low threshold to restart treatment Polysubstance abuse Suspected withdrawal -Avoid sedating medications Severe protein calorie malnutrition -Optimize nutritional status Microscopic hematuria -Consider urology referral at discharge DVT prophylaxis: Heparin CODE STATUS: Assume full Attestations 2 Medical Necessity Statement*: Patient requires ongoing hospitalization due to persistent altered mental status with workup consisting of further MRI, serial labs, serial neuroexams, and supportive care. Critical Care Time: The high probability of a clinically significant, sudden or life threatening deterioration of the patient's neuro system(s) required my full and direct attention, intervention and personal management. Left the critical care time is as shown. This time is in addition to time spent performing any reported procedures but includes the following: [x] Data and vital sign review and interpretation [x] Patient assessment, examination and intervention [x] Documentation [x] Medication orders and management Critical Care Time (min): 35 Coding Level of Care Code Acute Code for Chg Fwd Diagnoses Methamphetamine abuse F15.10 Drug abuse F19.10 Severe protein-calorie malnutrition E43 Muscle wasting M62.50 Encephalomalacia with cerebral infarction G93.89; I63.9 Acute encephalopathy G93.40 Seizure R56.9 Focal neurological deficit R29.818 Physical deconditioning R53.81 Fever R50.9
[2023-11-05] MEDS: haloperidol inj 5 mg/mL INJ 1 mL IM (14:55)
[2023-11-05] MEDS: dexmedeTOMIDine 0.9 % NaCL 400 MCG/100 ML PREMIX 11.3200000000000003 MCG IV (14:58)
--- NOTE | 2023-11-05 15:52 | PC.NURSE ---
1440 patient agitated, pulling off monitoring devices, pulled out an IV, trying to ambulate and go home. Patient is only alert to self and is confused. Patient unable to tell nurse where he is, where he lives, , todays date, what state or what country he is in. Patient placed back on precedex, given IV Ativan, IM Haldol, and placed in soft wrist restraints. See MAR for medication administration times.
[2023-11-05] MEDS: atorvastatin 40 mg Tablet PO (20:04)
[2023-11-06] VITALS (41 sets, daily range): BP systolic 106–176; BP diastolic 64–97; PULSE 48–67; RESP 0–22; TEMP 36.3–36.6; O2SAT 92–100
[2023-11-06] MEDS: levETIRAcetam 1,000 MG/100 ML PREMIX 400 MG IV ×3 (02:22→21:01)
[2023-11-06 05:21] LABS: Basophils % 0.5 %; Eosinophils # 0.1 10^3/uL (0.0-0.8); Eosinophils % 1.2 %; Hematocrit 38.1 % (37-53); Lymphocytes # 2.2 10^3/uL (0.8-4.8); Mean Corpuscular HGB Conc 32.3 g/dL (30-55); Mean Platelet Volume 9.9 fL (7.4-10.4); Monocytes # 0.8 10^3/uL (0.2-0.9); Nucleated Red Blood Cells % 0 %; Platelet Count 232 10^3/cmm (157-399); Red Blood Count 3.97 10^6/uL (3.85-5.65); White Blood Count 7.47 10^3/uL (3.29-11.43)
[2023-11-06 05:56] LABS: Albumin Level 3.1 g/dL (3.5-5.2); Anion Gap 13.5 (5-19); Blood Urea Nitrogen 8 mg/dL (8-23); Carbon Dioxide 24 mmol/L (22-29); Chloride 106 mmol/L (98-107); Creatinine Clr Calc Pharmacy 82.1198; Glucose 112 mg/dL (65-115); Phosphorus 3.7 mg/dL (2.5-4.5); Potassium 3.5 mmol/L (3.5-5.1); Sodium 140 mmol/L (136-145)
--- NOTE | 2023-11-06 07:17 | P.PN_ITS ---
Subjective 2 Subjective: Remains on Precedex. Bradycardic to 49, but it is expected. When seen, he is only able to tell me his name. Vitals/I&O/Wt Last Vital Signs Temp 97.9 F 11/06/23 04:00 Pulse 54 L 11/06/23 05:59 Resp 17 11/06/23 04:00 BP 164/76 11/06/23 04:00 Pulse Ox 93 11/06/23 04:00 O2 Del Method Room Air 11/05/23 08:27 O2 Flow Rate 3 11/04/23 04:00 11/05/23 11/06/23 11/06/23 22:59 06:59 14:59 Intake Total 388.055 / 1755.950 340 / 2095.950 Output Total 400 / 800 750 / 1550 Balance -11.945 / 955.950 -410 / 545.950 Weight last 48 hrs Weight 36.741 kg Physical Exam 2 Const: EXAM LIMITATIONS: altered mental status GENERAL APPEARANCE: c ooperative and comfortable NUTRITIONAL APPEARANCE: cachectic O RIENTATION/CONSCIOUSNESS: Yes awake and Yes oriented to person HENMT: COMMON NORMALS: normocephalic, atraumatic, external ears normal and Normal external nose present HEAD & SCALP: normocephalic and atraumatic F MARIA ISABEL & SINUS: normal facial exam NOSE: Normal external nose present E XTERNAL EAR: Yes external ears normal MOUTH: Normal oral and palatal mucosa present TEETH & GINGIVA: Yes edentulous Eye: COMMON NORMALS: Equal, round and reactive pupils present PUPIL: Yes Equal, round and reactive pupils present EOM: No EOM abnormal Neck/C-Spine: GENERAL: Yes normal visual inspection CAROTIDS: No bruit O THER: Difficult to assess thyroid, given patient's difficulty in following commands. Lymph: OTHER: No cervical or supraclavicular lymphadenopathy. Resp: OTHER: CTAB with no w/r/r Cardio: OTHER: Irregular rate and rhythm. No tachycardia. GI: OTHER: BS+, nontender, nondistended, no rebound, no rigidity, no guarding, no hepatosplenomegaly. Extremity: GENERAL: No clubbing, No cyanosis and No edema Neuro: SENSORIUM/ORIENTATION: Yes oriented to person SPEECH: abnormal speech and receptive aphasia MOTOR EXAM: Normal motor muscle tone present throughout Psych: OTHER: Difficult to assess given patient's mental status. Data 11/06/23 04:24 11/06/23 04:24 Micro: Microbiology 11/03/23 23:40 Gram Stain - Final Cerebrospinal Fluid CSF Culture - Preliminary 11/03/23 23:10 Urine Culture - Final Urine,Clean Catch 11/04/23 01:18 Blood Culture - Preliminary Blood NEGATIVE TO DATE 11/04/23 01:15 Blood Culture - Preliminary Blood NEGATIVE TO DATE Attestations 2 Medical Necessity Statement*: Mr. Fontanez is a 62yo an w/ chronic pain, osteoarthritis substance abuse of w/ Marijuana and Amphetamines, a remote L. temporoparietal CVA note who was brought to the ED on the night of 11/03/2023 after a witnessed episode of convulsions, eyes rolling to the back of his head and right-sided weakness. He is s/p Ativan/Keppra in the ED. In the ED, he mckenzie a temp of 100.2, wbc of 14.6. His CT head showed encephalomalacia of the L. temporoparietal region with scattered areas of calcification consistent with remote infarction. His CTA showed an acute vs chronic L. distal M1 segment occlusion, patent b/l extracranial internal carotid arteries and patent b/l vertebral arteries. Tele Neurology at [facility] was consulted and the noted thrombus was deemed to be due to an old thrombus, so no endovascular intervention was recommended. His UA showed bacteriuria and microscopic hematuria. His UDS was positive for Amphetamines and THC as well as benzodiazepines, but he was given Lorazepam in the ED. His Influenza A/B, COVID-19 rapid test was netaive. An LP was done that showed minimally elevated wbcs in the CSF. He was given Vanc/Ceftriaxone and admitted. On admission, he was given Vanc/Merrem/Acyclovir. #Acute Metabolic Encephalopathy: of unclear etiology #Possible Seizure #Concern for CVA # hx of CVA w/ chronic R. sided weakness # Hyperlipidemia - Consulted Neurology and per discussio n will hold MRI of the head. - S/p LP. BCx HIV, Acute Hepatitis pane l. - Continue empiric Aspirin, Atorvastatin - Telemetry, ECHO, EEG #Agitation: On Precedex. #L. T8/T9 paraspinal mass: Needs MRI of T-spine w/ contrast. Will hold this since MRI of the head was held. #L. thigh mass: US ordered. # Possible Myositis vs Rhabdomyolysis: Start NS at 200cc/hr x 10 hrs. Trend CK. #Fever of unknown origin - S/p LP. BCx HIV, Acute Hepatitis pane l. - Resolved. Vanc/Meropenem/Acyclovir hel d on 11/05. - CT chest/abd/pelvis w/o contrast showi ng L. T8/T9 paraspinal mass - F/u HSV and VDRL CSF #Severe Protein calorie Malnutrition (Sarcopenia) - Carton Stamper consulted #Microscopic Hematuria - Urology referral at discharge. Will g et CT abd/pelvis w/ contrast later. #Chronic pain #Osteoarthritis #Poly substance use d/o (THC, Amphetamines, Tobacco) #Centrilobular emphysema: Noted on CTA head/neck. DVT ppx: Heparin subq Coding Level of Care Code 12088
[2023-11-06] MEDS: aspirin 81 mg EC Tablet PO (09:02)
[2023-11-06] MEDS: folic acid 1 mg Tablet PO (09:02)
[2023-11-06] MEDS: multivitamin therapeutic Tablet 1 TAB PO (09:02)
[2023-11-06] MEDS: thiamine 100 mg Tablet PO (09:02)
[2023-11-06] MEDS: heparin 5,000 unit/mL INJ 1 mL 5000 UNIT SUBCUT ×2 (09:02→20:59)
[2023-11-06 09:19] LABS: Creatine Phosphokinase 664 U/L (39-308)
--- NOTE | 2023-11-06 09:53 | US_ITS ---
WS: [id number] INDICATION: LEFT medial thigh mass TECHNIQUE: Ultrasound soft tissue of concern FINDINGS: Ultrasound LEFT medial thigh. Complex cystic and solid appearing ovoid mass in the area of concern measuring 4.6 x 2.9 x 3.6 cm. No associated vascularity. IMPRESSION: Complex ovoid lesion in the area of concern described above. No associated vascularity. Findings are nonspecific but differential considerations include complex hematoma, injection granuloma, possibly c omplex abscess, as well as soft tissue mass/neoplasm. Recommend correlation with clinical history and any history of neoplasm.
[2023-11-06] MEDS: nicotine 21 mg Patch 1 PATCH TRANSDERMA (11:11)
[2023-11-06] MEDS: sodium chloride 0.9% 1,000 ML 75 ML IV (11:12)
[2023-11-06] MEDS: dexmedeTOMIDine 0.9 % NaCL 400 MCG/100 ML PREMIX 9.05000000000000071 MCG IV (11:14)
[2023-11-06] MEDS: LORazepam 2 mg/mL INJ 10 mL MDV 1 MG IVP (11:15)
[2023-11-06] MEDS: sodium chloride 0.9% 1,000 ML 200 ML IV (12:15)
--- NOTE | 2023-11-06 17:32 | P.CONIM_ITS ---
Providers/Reason For Consult 2 Consulting Physician/Specialty*: Lindy Liu Reason for Consult*: Agitation and altered mental status Requesting Physician: Lindy Liu Attending Physician: Lindy Liu MD History of Present Illness History of Present Illness Reuben Fontanez is a 62 year old male Who reportedly lives in a hotel and there, smokes quite a bit of weed and was positive for methamphetamine when he arrived here 11/03/2023 with acute encephalopathy.It was reported that he had a generalized tonic-clonic seizure and was afterward confused. Nobody knew anything about him because he was living at a hotel. No one has been to visit him since he arrived here on the . He has been agitated and required high- dose sedatives because when he wakes up he pulls his IVs out and is vigorously violent.He has not had any seizures since he arrived. No witnessed seizures since arrival. He received Keppra in the ER. Dr. Nazario reported he was not following commands. Because of his questionable history of polysubstance abuse and new onset of seizure he had a spinal tap in the ER. Reportedly the tap was atraumatic with 0 RBCs and 13 WBCs, 85% polys with normal glucose and protein. That spinal fluid picture is consistent with patient's generalized tonic-clonic seizure. His CT of the head 11/03/2023 shows an old region of encephalomalacia in the left posterior branch left middle cerebral artery distribution, large. This was read as temporal lobe encephalomalacia but this is an extensive infarct in the distribution of the left middle cerebral artery. This is a lesion that would likely produce a right visual field cut and dense receptive aphasia. Consistent with this, CT angiogram showed a left distal M1 segment occlusion of unknown date but based on infarct pattern, consistent with a chronic infarct. Review of Systems 2 Narrative: He reportedly had some low-grade fever on arrival. 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 That was the finding of a chest/abdomen and pelvis CAT scan ordered by Dr. Johnson I guess for fever of unknown origin. It is not quite clear. The patient has not had any symptoms from this lesion. All caregivers have reported that the patient would not follow commands. Medications/Allergies Home Medications Medication Instructions Recorded Confirmed Last Taken Type No Known Home Medications 11/04/23 11/04/23 Unknown History Allergies Allergy/AdvReac Type Severity Reaction Status Date / Time Penicillins Allergy Unknown Unknown Unverified 11/04/23 00:31 Current Medications Generic Name Dose Route Start Last Admin Trade Name Freq PRN Reason Stop Dose Admin Aspirin 81 mg 11/06/23 09:00 11/06/23 09:02 Aspirin 81 Mg Ec Tablet PO 81 mg DAILY DEBRA Administration Atorvastatin Calcium 40 mg 11/05/23 21:00 11/05/23 20:04 Atorvastatin 40 Mg Tablet PO 40 mg BEDTIME DEBRA Administration Folic Acid 1 mg 11/05/23 09:00 11/06/23 09:02 Folic Acid 1 Mg Tablet PO 1 mg DAILY DEBRA Administration Heparin Sodium (Porcine) 5,000 unit 11/04/23 09:00 11/06/23 09:02 Heparin 5,000 Unit/Ml Inj 1 Ml SUBCUT 5,000 unit Q12H DEBAR Administration Levetiracetam 1,000 mg in 100 mls @ 400 mls/hr 11/04/23 10:00 11/06/23 09:33 Keppra IV Infused Q12H DEBRA Infusion Dexmedetomidine/Sodium Chloride 400 mcg in 100 mls @ 0 mls/hr 11/04/23 02:45 11/06/23 15:45 Precedex IV 0.5 mcg/kg/hr .Q0M DEBRA 5.66 mls/hr Titration Protocol Per Protocol Sodium Chloride 1,000 mls @ 75 mls/hr 11/06/23 10:15 11/06/23 17:21 Sodium Chloride 0.9% IV 75 mls/hr .[id number] DEBRA Infusion Lorazepam 1 mg 11/04/23 14:27 11/06/23 11:15 Lorazepam 2 Mg/Ml Inj 10 Ml Mdv IVP 1 mg Q4H PRN Administration ANXIETY Multivitamins Therapeutic 1 tab 11/05/23 09:00 11/06/23 09:02 Multivitamin Therapeutic Tablet PO 1 tab DAILY DEBRA Administration Nicotine 1 patch 11/06/23 10:00 11/06/23 11:11 Nicotine 21 Mg Patch TRANSDERMA 1 patch DAILY DEBRA Administration Thiamine Mononitrate 100 mg 11/05/23 09:00 11/06/23 09:02 Thiamine 100 Mg Tablet PO 100 mg DAILY DEBRA Administration PFSH Acute 2 PFSH: Medical History Chronic pain Osteoarthritis Glaucoma Family History Son DVT (deep venous thrombosis) Social History Smoking and tobacco/nicotine status: current every day tobacco/nicotine user Alcohol intake: current Alcohol intake frequency: holidays/special occasions only Lives independently: Yes Vitals/I&O/Wt Last Vital Signs Temp 97.9 F 11/06/23 04:00 Pulse 50 L 11/06/23 14:00 Resp 22 H 11/06/23 10:00 BP 132/64 11/06/23 10:00 Pulse Ox 94 11/06/23 16:00 O2 Del Method Room Air 11/05/23 08:27 O2 Flow Rate 3 11/04/23 04:00 11/06/23 11/06/23 11/06/23 06:59 14:59 22:59 Intake Total 340 / 2095.950 851.812 / 851.812 983.959 / 1835.771 Output Total 750 / 1550 Balance -410 / 545.950 851.812 / 851.812 983.959 / 1835.771 Weight last 48 hrs Weight 81 lb Physical Exam 2 Narrative: General: Cachectic and heavily tattooed gentleman with wizzened complexion. He was lying quietly in his bed looking at me with suspicion. Mental status exam: He follows simple axial commands such as close your eyes open your mouth, etc. He does not follow gestures. He appears mildly hostile and suspicious of the examiner but did not strike out against me. Cranial nerves: I could not establish a visual field cut and he seemed to respond to threat throughout. Eye movements spontaneously full. Facial movements symmetric. He makes repetitive opening and closing movements of the mouth in response to all commands. He is managing his own secretions. Motor: He moves all 4 extremities vigorously. He covers himself up quickly. He would not squeeze my hands but he pulls away readily. Sensation he pulls away from touch and pin. Deep tendon reflexes toes are downgoing bilaterally. Gait not tested. HEENT: He has poor oral hygiene and dentition. Neck was supple. Chest: Clear to auscultation. Cardiovascular: S1-S2 normal without murmur or gallop. Regular rate and rhythm. Extremities: He is covered with tattoos. Many of these appear homemade. CT scan of the head shows old left middle cerebral artery stroke consistent with CTA finding of an old left middle cerebral artery occlusion at M1. Data 11/06/23 04:24 11/06/23 04:24 Micro: Microbiology 11/03/23 23:40 Gram Stain - Final Cerebrospinal Fluid CSF Culture - Preliminary A&P Assessment and plan (1) Postictal paralysis: 62-year-old gentleman with chronic back pain that he has been managing with methamphetamine and marijuana. He presented here after generalized tonic-clonic seizure followed by postictal receptive aphasia. It is common for individuals with receptive aphasia to react aggressively as they do not understand what is said to them and interpret it as a foreign language and potentially deliberately difficult for them. Another which they assume that others are speaking foreign language and this commonly results in paranoid and sometimes aggressive behavior. This gentleman should be released as soon as he is able. He needs to be on an anticonvulsant because he has a focal lesion that is likely to produce further seizures. He should have an EEG as an outpatient. If you continue to have difficulty with his aggression I would switch him to Lamictal or Depakote, as either 1 is less likely to aggravate behaviors. 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 It is unlikely that surgery would be the right answer for that and he does not have weakness or upgoing toes in the legs. I started him on olanzapine at at bedtime as the nurses report that his aggression most often takes place in the night. (2) Generalized seizure: (3) Methamphetamine abuse: (4) Severe protein-calorie malnutrition: Consult Attestations 2 Medical Necessity Statement: Postictal neurologic deficit. The patient is destitute and apparently has nowhere to go at this time. He is a social problem currently. Time Spent in Patient Care: Greater than 35 minutes Coding Level of Care Code Acute Code for [facility] Diagnoses Postictal paralysis G83.84 Generalized seizure R56.9 Methamphetamine abuse F15.10 Severe protein-calorie malnutrition E43
[2023-11-06] MEDS: atorvastatin 40 mg Tablet PO (20:58)
[2023-11-06] MEDS: OLANZapine 5 mg TABLET PO (20:58)
[2023-11-07] VITALS (36 sets, daily range): BP systolic 82–122; BP diastolic 58–94; PULSE 46–121; RESP 10–24; TEMP 37; O2SAT 93–99
[2023-11-07 01:34] LABS: VDRL on CSF NON-REACTIVE
[2023-11-07] MEDS: haloperidol inj 5 mg/mL INJ 1 mL IVP (01:44)
[2023-11-07] MEDS: sodium chloride 0.9% 1,000 ML 75 ML IV (06:26)
[2023-11-07] MEDS: folic acid 1 mg Tablet PO (08:15)
[2023-11-07] MEDS: thiamine 100 mg Tablet PO (08:15)
[2023-11-07] MEDS: multivitamin therapeutic Tablet 1 TAB PO (08:16)
[2023-11-07] MEDS: nicotine 21 mg Patch 1 PATCH TRANSDERMA (08:16)
[2023-11-07] MEDS: aspirin 81 mg EC Tablet PO (08:16)
[2023-11-07] MEDS: heparin 5,000 unit/mL INJ 1 mL 5000 UNIT SUBCUT (08:17)
[2023-11-07] MEDS: levETIRAcetam 1,000 MG/100 ML PREMIX 400 MG IV (11:30)
--- NOTE | 2023-11-07 12:03 | PC.NURSE ---
Pt states that he is ready to go home. Pt can't tell me what town he lives in or his address but points in the direction of where he does live. Pt spoke tohis son earlier today via telephone and pt stated that his son was supposed to come see him today. Pt has been pretty steady via ambulating to the restroom and has been continent and using the toilet appropriately.
--- NOTE | 2023-11-07 15:48 | PC.NURSE ---
Pt noticed to be off the monitor. Went in to check on pt and found him to be getting dressed and stated taht he was getting out of here. Pt appears to be way more coherent than earlier this morning. Notified pt's son and called MD. Pt seen by and is to be d/c home with a friend to take him back home in [place].
--- NOTE | 2023-11-07 16:54 | PM.DCS ---
Discharge Providers Date of Admission: 11/04/23 02:15 Date of Discharge: November 07, 2023 Attending Provider at Admission: Michele Quigley Attending Provider at Discharge: Lindy Liu MD Diagnoses at Discharge Discharge Diagnosis (1) Postictal paralysis: Status: Acute (2) Generalized seizure: Status: Acute (3) Methamphetamine abuse: Status: Acute (4) Severe protein-calorie malnutrition: Status: Acute Reason for Visit Reason for Visit: WEAKNESS Hospital Course Hospital Course Mr. Fontanez is a 62yo an w/ chronic pain, osteoarthritis substance abuse of w/ Marijuana and Amphetamines, a remote L. temporoparietal CVA note who was brought to the ED on the night of 11/03/2023 after a witnessed episode of convulsions, eyes rolling to the back of his head and right-sided weakness. He is s/p Ativan/Keppra in the ED. In the ED, he mckenzie a temp of 100.2, wbc of 14.6. His CT head showed encephalomalacia of the L. temporoparietal region with scattered areas of calcification consistent with remote infarction. His CTA showed an acute vs chronic L. distal M1 segment occlusion, patent b/l extracranial internal carotid arteries and patent b/l vertebral arteries. Tele Neurology at [facility] was consulted and the noted thrombus was deemed to be due to an old thrombus, so no endovascular intervention was recommended. His UA showed bacteriuria and microscopic hematuria. His UDS was positive for Amphetamines and THC as well as benzodiazepines, but he was given Lorazepam in the ED. His Influenza A/B, COVID-19 rapid test was negative. An LP was done that showed minimally elevated wbcs in the CSF. He was given Vanc/Ceftriaxone and admitted to the ICU on Precedex. On admission, he was given Vanc/Merrem/Acyclovir. Given concern for his fever, a CT abdomen pelvis without contrast was done that showed a L. T8/T9 paraspinal mass, and an MRI of the T-spine was recommended to further evaluate the mass. His fever resolved early in admission, so Vanc/Merrem/Acyclovir was d/c'ed. His VDRL CSF was negative, as were his BCx, UCx, HIV, and Acute Hepatitis panel. An MRI brain was ordered on admission, but it was canceled twice due to agitation. The Neurologist on service was consulted, who did not deem that there was an indication for an MRI brain at this time. According to neurologist, the patient had a generalized tonic-clonic seizure followed by postictal receptive aphasia (please see Dr. Alves's note on ). He was started on Olanzapine for his agitated and aggressive behavior. The Neurologist also recommended initiation of lamotrigine or Depakote, and outpatient EEG, and evaluation of his L.T8/T9 paraspinal mass. On the day of discharge, the patient who had receptive aphasia, regained his speech, dressed himself, and started walking around the ICU stating that he was ready to be discharged. His HSV PCR was pending at the time of discharge. He was discharged to follow-up with his PCP, to be referred for evaluation for his microscopic hematuria, as well as his paraspinal mass, and L. thigh mass. #Acute Metabolic Encephalopathy: of unclear etiology #Possible Seizure #Concern for CVA # hx of CVA w/ chronic R. sided weakness # Hyperlipidemia - Discharged on daily Aspirin, Atorvastatin, Depakote 250mg BID #Agitation #L. T8/T9 paraspinal mass #L. thigh mass: F/u as outpatient. #Myositis #Severe Protein calorie Malnutrition #Microscopic Hematuria #Chronic pain #Osteoarthritis #Poly substance use d/o (THC, Amphetamines, Tobacco) #Centrilobular emphysema: Noted on CTA head/neck. Physical Exam Const: EXAM LIMITATIONS: altered mental status GENERAL APPEARANCE: cooperative and comfortable NUTRITIONAL APPEARANCE: cachectic ORIENTATION/CONSCIOUSNESS: Yes awake and Yes oriented to person HENMT: COMMON NORMALS: normocephalic, atraumatic, external ears normal and Normal external nose present HEAD & SCALP: normocephalic and atraumatic FACE & SINUS: normal facial exam NOSE: Normal external nose present EXTERNAL EAR: Yes external ears normal MOUTH: Normal oral and palatal mucosa present TEETH & GINGIVA: Yes edentulous Eye: COMMON NORMALS: Equal, round and reactive pupils present PUPIL: Yes Equal, round and reactive pupils present EOM: No EOM abnormal Neck/C-Spine: GENERAL: Yes normal visual inspection CAROTIDS: No bruit OTHER: Difficult to assess thyroid, given patient's difficulty in following commands. Lymph: OTHER: No cervical or supraclavicular lymphadenopathy. Resp: OTHER: CTAB with no w/r/r Cardio: OTHER: Irregular rate and rhythm. No tachycardia. GI: OTHER: BS+, nontender, nondistended, no rebound, no rigidity, no guarding, no hepatosplenomegaly. Extremity: GENERAL: No clubbing, No cyanosis and No edema Neuro: SENSORIUM/ORIENTATION: Yes oriented to person SPEECH: abnormal speech and receptive aphasia MOTOR EXAM: Normal motor muscle tone present throughout Psych: OTHER: Difficult to assess given patient's mental status. Discharge Data Studies Completed and Pending Completed Studies During Hospitalization Category Date Time Status CT chest abdomen pelvis [[place] [id number] Cat Scan 11/04/23 11:37 Completed ] Routine CT head thrombolytic [id number] Stat Cat Scan 11/03/23 21:49 Completed CTA head neck [CT angio headneck* [id number]] Stat Cat Scan 11/03/23 22:10 Completed XR chest 1V portable [id number] Stat Exams 11/03/23 21:49 Completed US soft tissue/extremity [id number] Routine Ultrasound 11/06/23 09:53 Completed Pending at discharge Category Date Time Status EEG electroencephalogram Routine Exams 11/06/23 09:57 Ordered Blood Culture Stat Lab 11/04/23 01:18 Results Herpes Simplex Virus DNA Stat Lab 11/04/23 00:00 Received MR head wo/w con [id number] Routine MRI 11/06/23 09:49 Stop Req MR thoracic spine wo/w [id number] Routine MRI 11/06/23 09:50 Stop Req Radiology Impressions Chest X-Ray 11/03/23 21:49 IMPRESSION: No acute findings. Head CT 11/03/23 21:49 IMPRESSION: 1. Encephalomalacia of the left temporoparietal region with scattered areas of calcification, consistent with remote infarction. 2. No acute intracranial findings. 3. Moderate cerebral small-vessel disease. ASSESSMENT: ASPECTS ([place] Stroke Program Early CT Score) is 10. ADDENDUM: 11/03/23 6097 THIS REPORT CONTAINS FINDINGS THAT MAY BE CRITICAL TO PATIENT CARE. The findings were verbally communicated via telephone conference with WILNER PHAM at 10:33 PM APPLICATIONS DEVELOPER on 11/03/2023. The findings were acknowledged and understood. ADDENDUM: 11/04/23 0102 The correct statement is as follows: Encephalomalacia of the left temporo-occipital region. Head/Neck CTA 11/03/23 22:10 IMPRESSION: Left distal M1 segment occlusion, acute versus chronic. IMPRESSION: 1. Normal right and left extracranial internal carotid arteries by NASCET criteria. 2. Patent bilateral vertebral arteries. THIS REPORT CONTAINS FINDINGS THAT MAY BE CRITICAL TO PATIENT CARE. The findings were verbally communicated via telephone conference with WILNER PHAM at 12:33 AM APPLICATIONS DEVELOPER on 11/04/2023. The findings were acknowledged and understood. Findings were discussed with Dr. Nuñez at 11/04/2023 12:50 AM APPLICATIONS DEVELOPER. REFERENCES: NASCET CRITERIA. The degree of stenosis in the cervical segment of the internal carotid artery is based on NASCET criteria. Normal is no stenosis. Mild is less than 50% stenosis. Moderate is 50-69% stenosis. Severe is 70% to 99% stenosis. Total occlusion is no detectable patent lumen. Chest/Abdomen/Pelvis CT 11/04/23 11:37 IMPRESSION: 1. No evidence of acute abnormality within limitations of a noncontrast exam. 2. 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 Follow-up nonemergent MRI of the thoracic spine with/without contrast is recommended. IMPRESSION: 1. No evidence of acute abnormality in the abdomen or pelvis within limitations of a noncontrast exam. Laboratory Results WBC 7.47 10^3/uL (3.29-11.43) 11/06/23 04:24 RBC 3.97 10^6/uL (3.85-5.65) 11/06/23 04:24 Hgb 12.30 g/dL (11.27-16.99) 11/06/23 04:24 Hct 38.1 % (37-53) 11/06/23 04:24 MCV 96.0 fl (82-101) 11/06/23 04:24 MCH 31.0 pg (27-33) 11/06/23 04:24 MCHC 32.3 g/dL (30-55) 11/06/23 04:24 RDW 13.0 % (12.1-15.1) 11/06/23 04:24 Plt Count 232 10^3/cmm (157-399) 11/06/23 04:24 MPV 9.9 fL (7.4-10.4) 11/06/23 04:24 Neut % (Auto) 59.0 % 11/06/23 04:24 Lymph % (Auto) 29.0 % 11/06/23 04:24 [place] % (Auto) 10.0 % 11/06/23 04:24 Eos % (Auto) 1.2 % 11/06/23 04:24 Baso % (Auto) 0.5 % 11/06/23 04:24 Neut # (Auto) 4.40 10^3/uL (1.8-7.7) 11/06/23 04:24 Lymph # (Auto) 2.2 10^3/uL (0.8-4.8) 11/06/23 04:24 [place] # (Auto) 0.8 10^3/uL (0.2-0.9) 11/06/23 04:24 Eos # (Auto) 0.1 10^3/uL (0.0-0.8) 11/06/23 04:24 Baso # (Auto) 0.0 10^3/uL (0.0-0.1) 11/06/23 04:24 Nucleated RBC % (auto) 0 % 11/06/23 04:24 Nucleated RBCs # 0.0 /100WBC 11/06/23 04:24 ESR 17 mm/hr (0-10) H 11/04/23 12:50 PT 13.40 SECONDS (12.1-14.9) 11/03/23 22:07 INR 0.99 (0.8-1.2) 11/03/23 22:07 APTT 24.8 SECONDS (23.9-36.7) 11/03/23 22:07 Sodium 140 mmol/L (136-145) 11/06/23 04:24 Potassium 3.5 mmol/L (3.5-5.1) 11/06/23 04:24 Chloride 106 mmol/L (98-107) 11/06/23 04:24 Carbon Dioxide 24 mmol/L (22-29) 11/06/23 04:24 Anion Gap 13.5 (5-19) 11/06/23 04:24 BUN 8 mg/dL (8-23) 11/06/23 04:24 Creatinine 0.6 mg/dL (0.7-1.2) L 11/06/23 04:24 GFR Calculation 137.0 mL/min (90-130) H 11/06/23 04:24 Glucose 112 mg/dL (65-115) 11/06/23 04:24 POC Glucose 112 mg/dL (70-110) H 11/03/23 22:06 Estimat Average Glucose 120 11/04/23 04:05 Hemoglobin A1c 5.8 % (4.0-6.0) 11/04/23 04:05 Calculated Osmolality 295 mOsm/kg (285-295) 11/05/23 04:40 Lactate 1.0 mmol/L (0.5-2.2) 11/05/23 04:40 Calcium 9.0 mg/dL (8.5-10.5) 11/06/23 04:24 Phosphorus 3.7 mg/dL (2.5-4.5) 11/06/23 04:24 Magnesium 1.8 mg/dL (1.7-2.3) 11/05/23 04:40 Total Bilirubin 0.3 mg/dL (0.15-1.2) 11/05/23 04:40 AST 22 U/L (0-40) 11/05/23 04:40 ALT 11 U/L (0-41) 11/05/23 04:40 Alkaline Phosphatase 55 U/L (40-130) 11/05/23 04:40 Ammonia 39 umol/L (16-60) 11/04/23 12:50 Creatine Kinase 664 U/L (39-308) H* 11/06/23 04:24 Troponin T Baseline 10 ng/L (0-15) 11/04/23 12:50 Troponin T 120 Minute 8.56 ng/L (0-15) 11/04/23 14:39 Delta Troponin T -1.44 ABS# (0-10) L 11/04/23 14:39 Troponin T Hi Sens 6Hr 7.13 ng/L (0-15) 11/04/23 18:23 Troponin T Hi Sens 6Hr Delta -2.87 ng/L (0-12) L 11/04/23 18:23 C-Reactive Protein 3.0 mg/L (0.0-4.9) 11/05/23 04:40 Total Protein 5.5 g/dL (6.6-8.7) L 11/05/23 04:40 Albumin 3.1 g/dL (3.5-5.2) L 11/06/23 04:24 Globulin 2.3 g/dL (1.3-4.6) 11/05/23 04:40 Triglycerides 97 mg/dL (0-150) 11/05/23 04:40 Cholesterol 149 mg/dL (0-200) 11/05/23 04:40 LDL Cholesterol, Calc 92 mg/dL (50-129) 11/05/23 04:40 HDL Cholesterol 38 mg/dL (60-100) L 11/05/23 04:40 LDL/HDL Ratio 2.42 RATIO (0.00-3.22) 11/05/23 04:40 Cholesterol/HDL Ratio 3.92 mg/dL (1.0-5.00) 11/05/23 04:40 Procalcitonin 0.06 ng/mL (0-0.5) 11/05/23 04:40 Urine Color Yellow (Yellow) 11/03/23 23:10 Urine Appearance Cloudy (CLEAR) A 11/03/23 23:10 Urine pH 7 (5-7) 11/03/23 23:10 Ur Specific [place] 1.005 (1.005-1.030) 11/03/23 23:10 Urine Protein Trace (Negative) 11/03/23 23:10 Urine Glucose (UA) Norm (Normal) 11/03/23 23:10 Urine Ketones 1+ (Negative) H 11/03/23 23:10 Urine Blood 3+ (Negative) H 11/03/23 23:10 Urine Nitrate Negative (Negative) 11/03/23 23:10 Urine Bilirubin Neg (Negative) 11/03/23 23:10 Urine Urobilinogen Norm mg/dL (Negative) 11/03/23 23:10 Ur Leukocyte Esterase Negative (Negative) 11/03/23 23:10 Urine RBC 25-40 /hpf (0-2) H 11/03/23 23:10 Urine WBC 0-4 /hpf (0-5) H 11/03/23 23:10 Ur Squamous Epith Cells 0-4 /hpf (0-5) H 11/03/23 23:10 Amorphous Sediment Not Reportable 11/03/23 23:10 Urine Bacteria Trace /hpf (NONE) 11/03/23 23:10 CSF Appearance Clear (CLEAR) 11/03/23 23:40 CSF Color Colorless (COLORLESS) 11/03/23 23:40 CSF WBC 13 /uL (0-5) H 11/03/23 23:40 CSF RBC 0 10^3/uL (0-0) 11/03/23 23:40 CSF Mononuclear # Auto 0.002 10^3/uL (50-90) L 11/03/23 23:40 CSF Mononuclear WBCs % 15 % (50-90) L 11/03/23 23:40 CSF Polynuclear WBCs # 0.011 10^3/uL (0-10) 11/03/23 23:40 CSF Polynuclear WBCs % 85 % (0-10) H 11/03/23 23:40 CSF Diff Comment Yes 11/03/23 23:40 CSF Glucose 68 mg/dL (40-70) 11/04/23 Unknown CSF Total Protein 46 mg/dL (15-45) H 11/03/23 23:40 CSF VDRL Non-reactive 11/03/23 23:40 Urine Opiates Screen Negative ng/mL (Negative) 11/03/23 23:10 Ur Barbiturates Screen Negative ng/mL (Negative) 11/03/23 23:10 Ur Phencyclidine Scrn Negative ng/mL (Negative) 11/03/23 23:10 Ur Amphetamines Screen Positive ng/mL (Negative) H 11/03/23 23:10 U Benzodiazepines Scrn Positive ng/mL (Negative) H 11/03/23 23:10 Urine Cocaine Screen Negative ng/mL (Negative) 11/03/23 23:10 U Marijuana (THC) Screen Positive ng/mL (Negative) H 11/03/23 23:10 Ethyl Alcohol < 10 mg/dL (0-10) 11/03/23 22:07 Adenovirus (PCR) Not detected (NOT DETECT) 11/04/23 05:09 C. pneumoniae DNA (PCR) Not detected (NOT DETECT) 11/04/23 05:09 Coronavirus 229E (PCR) Not detected (NOT DETECT) 11/04/23 05:09 Hepatitis A IgM Ab Non-reactive (Nonreactive) 11/04/23 12:50 Hep Bs Antigen Non-reactive (Nonreactive) 11/04/23 12:50 Hep B Core IgM Ab Non-reactive (Nonreactive) 11/04/23 12:50 Hepatitis C Antibody Non-reactive (Nonreactive) 11/04/23 12:50 HIV 1&2 Ab & HIV 1 Ag Non-reactive (Non-Reactiv) 11/04/23 12:50 HIV 1&2 Antibody Non-reactive (Non-Reactiv) 11/04/23 12:50 Human Metapneumovir PCR Not detected (NOT DETECT) 11/04/23 05:09 Influenza A (H1) PCR Not detected (NOT DETECT) 11/04/23 05:09 Influ A (H1/09) PCR Not detected (NOT DETECT) 11/04/23 05:09 Influenza A (H3) PCR Not detected (NOT DETECT) 11/04/23 05:09 Influenza Type A Ag negative (Negative) 11/03/23 22:23 Influenza Type A (PCR) Not detected (NOT DETECT) 11/04/23 05:09 Influenza Type B Ag negative (Negative) 11/03/23 22:23 Influenza Type B (PCR) Not detected (NOT DETECT) 11/04/23 05:09 M. pneumoniae (PCR) Not detected (NOT DETECT) 11/04/23 05:09 Parainfluenza 1 (PCR) Not detected (NOT DETECT) 11/04/23 05:09 Parainfluenza 2 (PCR) Not detected (NOT DETECT) 11/04/23 05:09 Parainfluenza 3 (PCR) Not detected (NOT DETECT) 11/04/23 05:09 Parainfluenza 4 (PCR) Not detected (NOT DETECT) 11/04/23 05:09 RSV Type A (PCR) Not detected (NOT DETECT) 11/04/23 05:09 RSV Type B (PCR) Not detected (NOT DETECT) 11/04/23 05:09 Entero/Rhino (PCR) Not detected (NOT DETECT) 11/04/23 05:09 SARS-CoV-2 (PCR) Not detected (NOT DETECT) 11/04/23 05:09 SARS-CoV-2 Ag (Rapid) negative (Negative) 11/03/23 22:23 Vitals Last Vital Signs Temp 98.6 F 11/07/23 00:00 Pulse 96 11/07/23 16:00 Resp 16 11/07/23 15:30 BP 94/75 11/07/23 15:00 Pulse Ox 95 11/07/23 14:00 O2 Del Method Room Air 11/07/23 10:47 O2 Flow Rate 3 11/04/23 04:00 Discharge Plan Discharge Patient Disposition: Home Condition: Stable Prescriptions: New atorvastatin 40 mg Tablet 40 mg PO BEDTIME 30 Days Qty: 30 0RF divalproex 250 mg Tablet,Delayed Release (Dr/Ec) 250 mg PO BID 30 Days Qty: 60 0RF olanzapine 5 mg Tablet 5 mg PO BEDTIME 30 Days Qty: 30 0RF aspirin 81 mg Tablet,Delayed Release (Dr/Ec) 81 mg PO DAILY 90 Days Qty: 90 0RF Thera 400 mcg Tablet 1 tab PO DAILY 30 Days Qty: 30 0RF Discharge Orders: Discharge Order (Routine); Ordered 11/07/23 Ordered By: Lindy Liu Other Ambulatory Orders: EEG electroencephalogram (Routine) Timeframe: 1 Month Facility: [facility] - Location: Neurology Ordered By: Lindy Liu Referrals: Crisis Stabilization [Other] (7days/week 8am-6pm.) [facility] [Outside] (?Follow up as a walk in at [facility], walk in hours are Sunday-Sunday from 7:30AM-3:00PM, first come, first seen. Once you do this assessment you will be referred for appropriate services.) Ayana Maria FNP [Referring] - 11/14/23 1:00 pm (This appointment will be at the [facility] @ [address] [place] [id number].) Discharge Diet: As Directed Discharge Activity: Increase activity as tolerated Patient Instructions: Methamphetamine Use Disorder (DC), Weakness (DC), Encephalopathy (DC), Opioid Safety, Stroke Stoplight, Seizures Discharge Attestations Time Spent in Discharge Care*: greater than 30 min Quality Metrics Clinical Quality Measures [ No reported AMI, CVA or VTE this stay] Coding Level of Care Code 70585 Diagnoses Postictal paralysis G83.84 Generalized seizure R56.9 Methamphetamine abuse F15.10 Severe protein-calorie malnutrition E43
[2023-11-07] MEDS: divalproex DR 250 mg Tablet PO (17:13)
--- NOTE | 2023-11-07 18:16 | PC.NURSE ---
Discharge Note Patient discharged to [home] via [ambulation to POV] accompanied by [RN and son]. Discharge instructions reviewed with patient and/or assistance representative. Mobile pharmacy medications and/or prescriptions provided. Belongings/home medications returned.
[2023-11-09 15:01] LABS: HSV 1 DNA NOT DETECTED; HSV 2 DNA NOT DETECTED; HSV Source csf
== END 2023-11-07 17:55 | disposition home or self-care (01) | DRG 100 ==
LOC: ER 11-04 00:16 → ICU 11-04 03:18
PROVIDERS: Family Medicine; Internal Medicine; Admitting Provider Internal Medicine; Emergency Provider Emergency Medicine; Visit Provider Internal Medicine
DX: G40.409 Other generalized epilepsy and epileptic syndromes, not intractable, without status epilepticus (principal); E43 Unspecified severe protein-calorie malnutrition; G93.41 Metabolic encephalopathy; I69.351 Hemiplegia and hemiparesis following cerebral infarction affecting right dominant side; Z68.1 Body mass index [BMI] 19.9 or less, adult; R47.01 Aphasia; G95.9 Disease of spinal cord, unspecified; F17.210 Nicotine dependence, cigarettes, uncomplicated; G89.29 Other chronic pain; M54.9 Dorsalgia, unspecified; M19.90 Unspecified osteoarthritis, unspecified site; H40.9 Unspecified glaucoma; R45.1 Restlessness and agitation; F15.10 Other stimulant abuse, uncomplicated; F12.10 Cannabis abuse, uncomplicated; M62.84 Sarcopenia; G93.89 Other specified disorders of brain; E78.5 Hyperlipidemia, unspecified; R50.9 Fever, unspecified; R31.29 Other microscopic hematuria; R29.818 Other symptoms and signs involving the nervous system; J43.2 Centrilobular emphysema; M60.9 Myositis, unspecified; R22.42 Localized swelling, mass and lump, left lower limb; G83.84 Todd's paralysis (postepileptic)
CPT/HCPCS: 36415; 36416; 62270; 70450; 70496; 70498; 71045; 71250; 74176; 76882; 80048; 80053; 80061; 80069; 80074; 80306; 80307; 80503; 81001; 82140; 82550; 82945; 82962; 83036; 83605; 83735; 84100; 84145; 84157; 84484; 85025; 85610; 85651; 85730; 86140; 86592; 87040; 87070; 87075; 87086; 87205; 87426; 87486; 87530; 87581; 87633; 87804; 87806; 89050; 92507; 92523; 92526; 92610; 93005; 96365; 96372; 96375; 96376; 99285; A4570; C9113; J0133; J0696; J1630; J1644; J1953; J2060; J2185; J2704; J3370; J3411; J3475; J7030; J7050; Q9967

== ENCOUNTER 2024-12-26 09:36 | Inpatient (IN) | payer OTHER, SELFPAY ==
[2024-12-26] VITALS (19 sets, daily range): BP systolic 117–152; BP diastolic 69–101; PULSE 58–102; RESP 10–22; TEMP 36.3–36.8; O2SAT 90–100
--- NOTE | 2024-12-26 09:49 | W.ED.EXTPRO ---
HPI - Extremity Problem General: Chief complaint: Extremity Injury, Lower Stated complaint: necrotic toe Time Seen by Provider: 12/26/24 09:47 History of Present Illness: 64-year-old man with a history of tobacco dependence who presents the emergency room with right toe pain. He says this started a couple of weeks ago and has increased in severity. He is complaining of severe pain in that toe today. He says he had a similar episode with the toe next to it but the pain had resolved. He has partial blackening of that toe. He says he takes no medication and does not go to a doctor because his insurance will not cover it. He says he smokes about a pack and half cigarettes per day. He received 100 of fentanyl in the ambulance but is still complaining of severe pain on presentation. Related Data Home Medications ?Medication ?Instructions ?Recorded ?Confirmed aspirin 81 mg tablet,delayed 81 mg PO DAILY 12/26/24 12/26/24 release (Rico Low Dose Aspirin) ibuprofen 200 mg tablet (Advil) 800 mg PO Q6H PRN Pain 12/26/24 12/26/24 Previous Rx's ?Medication ?Instructions ?Recorded valproic acid 250 mg capsule 500 mg (2 x 250 mg) PO Q8H 30 days 12/05/24 #180 caps Allergies Allergy/AdvReac Type Severity Reaction Status Date / Time Penicillins Allergy Unknown Unknown Verified 12/03/24 02:44 Review of Systems Narrative: Constitutional symptoms: Negative except as documented in HPI. Skin symptoms: Negative except as documented in HPI. Eye symptoms: Negative except as documented in HPI. ENMT symptoms: Negative except as documented in HPI. Respiratory symptoms: Negative except as documented in HPI. Cardiovascular symptoms: Negative except as documented in HPI. Gastrointestinal symptoms: Negative except as documented in HPI. Genitourinary symptoms: Negative except as documented in HPI. Musculoskeletal symptoms: Negative except as documented in HPI. Neurologic symptoms: Negative except as documented in HPI. Psychiatric symptoms: Negative except as documented in HPI. Endocrine symptoms: Negative except as documented in HPI. [facility] PFSH: Medical History Encephalomalacia with cerebral infarction Drug abuse Severe protein-calorie malnutrition Methamphetamine abuse Seizure Chronic pain Osteoarthritis Glaucoma Family History Son DVT (deep venous thrombosis) Social History Smoking and tobacco/nicotine status: current every day tobacco/nicotine user Alcohol intake: current Alcohol intake frequency: holidays/special occasions only Lives independently: Yes Physical Exam Narrative: EXAM NARRATIVE: General: Alert, no acute distress. Skin: Warm, dry. Head: Normocephalic, atraumatic. Neck: Supple, trachea midline. Eye: Extraocular movements are intact. Ears, nose, mouth and throat: mucosa moist. Cardiovascular: Regular, Normal peripheral perfusion. Respiratory: Lungs are clear to auscultation, respirations are non-labored, breath sounds are equal, Symmetrical chest wall expansion. Gastrointestinal: Soft, Nontender, Non distended Musculoskeletal: Normal ROM, no deformity. Right third toe is blackened and patient expresses it is very painful. He also has some discoloration of the fourth digit medially. Neurological: Alert and oriented, No focal neurological deficit observed. Psychiatric: Cooperative, appropriate mood & affect. Course Vital Signs: Vital signs: Vital Signs Temperature 98.3 F 12/26/24 09:46 Pulse Rate 71 12/26/24 14:35 Respiratory Rate 20 H 12/26/24 09:46 Blood Pressure 136/87 12/26/24 14:35 Pulse Oximetry 100 12/26/24 14:35 Oxygen Delivery Me thod Nasal Cannula 12/26/24 11:53 Oxygen Flow Rate 2 12/26/24 11:53 MDM - Extremity (Nontraumatic) Medical Decision Making Lab Review: Laboratory results were reviewed and interpreted by myself the emergency room physician. Mild leukocytosis. No anemia. No renal failure. ESR and CRP are mildly elevated. Lactic acid is not elevated. Consultation: I spoke with Dr. Schwartz who is on-call for podiatry. He recommends a CTA runoff. Consultation: I spoke with Dr. Quigley who agrees to admission but recommends cardiology consultation first to evaluate the CT angiogram runoff. Consultation: I spoke with Dr. Mclean who is on-call for cardiology. He saw the patient in the emergency room and took 2 patient to the Rn Midwife after admission from the emergency room. I reviewed the patient's medical record. Reexamination: Patient has poor distal pulses to palpation. He has pain control briefly but becomes very agitated and yells at staff quite a bit whenever his pain returns. Assessment and plan: Peripheral vascular disease Tobacco dependence ?IV Dilaudid and IV heparin drip with bolus. -I discussed the patient with the hospitalist on-call who is admitting the patient. - Discussed findings and plan with patient. Answered any questions. - All laboratory values were reviewed and interpreted personally by myself, the ER physician - All imaging was reviewed and interpreted personally by myself, the ER physician. - Evaluation and treatment of this problem were appropriate in the emergency setting Lab Data 12/26/24 10:31 12/26/24 10:31 Radiology Impressions Foot X-Ray 12/26/24 10:41 IMPRESSION: 1. No fracture or bone destruction. Degenerative changes. Laboratory Results WBC 16.46 10^3/uL (3.29-11.43) H 12/26/24 10:31 RBC 4.05 10^6/uL (3.85-5.65) 12/26/24 10:31 Hgb 12.80 g/dL (11.27-16.99) 12/26/24 10:31 Hct 39.7 % (37-53) 12/26/24 10:31 MCV 98.0 fl (82-101) 12/26/24 10:31 MCH 31.6 pg (27-33) 12/26/24 10:31 MCHC 32.2 g/dL (30-55) 12/26/24 10:31 RDW 13.6 % (12.1-15.1) 12/26/24 10:31 Plt Count 394 10^3/cmm (157-399) 12/26/24 10:31 MPV 9.8 fL (7.4-10.4) 12/26/24 10:31 Neut % (Auto) 79.8 % 12/26/24 10:31 Lymph % (Auto) 12.8 % 12/26/24 10:31 Monroe % (Auto) 6.6 % 12/26/24 10:31 Eos % (Auto) 0.1 % 12/26/24 10:31 Baso % (Auto) 0.3 % 12/26/24 10:31 Neut # (Auto) 13.13 10^3/uL (1.8-7.7) H 12/26/24 10:31 Lymph # (Auto) 2.1 10^3/uL (0.8-4.8) 12/26/24 10:31 Monroe # (Auto) 1.1 10^3/uL (0.2-0.9) H 12/26/24 10:31 Eos # (Auto) 0.0 10^3/uL (0.0-0.8) 12/26/24 10:31 Baso # (Auto) 0.1 10^3/uL (0.0-0.1) 12/26/24 10:31 Nucleated RBC % (auto) 0 % 12/26/24 10:31 Nucleated RBCs # 0.0 /100WBC 12/26/24 10:31 ESR 30 mm/hr (0-10) H 12/26/24 10:31 Sodium 137 mmol/L (136-145) 12/26/24 10:31 Potassium 4.4 mmol/L (3.5-5.1) 12/26/24 10:31 Chloride 97 mmol/L (98-107) L 12/26/24 10:31 Carbon Dioxide 24 mmol/L (22-29) 12/26/24 10:31 Anion Gap 20.4 (5-19) H 12/26/24 10:31 BUN 12 mg/dL (8-23) 12/26/24 10:31 Creatinine 0.7 mg/dL (0.7-1.2) 12/26/24 10:31 GFR Calculation 113.9 mL/min (90-130) 12/26/24 10:31 Glucose 126 mg/dL (65-115) H 12/26/24 10:31 Calculated Osmolality 285 mOsm/kg (285-295) 12/26/24 10:31 Lactic Acid 1.7 mmol/L (0.5-2.2) 12/26/24 10:31 Calcium 11.1 mg/dL (8.5-10.5) H 12/26/24 10:31 Total Bilirubin 0.2 mg/dL (0.15-1.2) 12/26/24 10:31 AST 9 U/L (0-40) 12/26/24 10:31 ALT < 5 U/L (0-41) 12/26/24 10:31 Alkaline Phosphatase 88 U/L (40-130) 12/26/24 10:31 C-Reactive Protein 23.0 mg/L (0.0-4.9) H 12/26/24 10:31 Total Protein 7.7 g/dL (6.6-8.7) 12/26/24 10:31 Albumin 3.9 g/dL (3.5-5.2) 12/26/24 10:31 Globulin 3.8 g/dL (1.3-4.6) 12/26/24 10:31 All radiology interpretation(s) finalized by discharge Discharge Plan Discharge Patient Disposition: Admitted As Inpatient Admit Provider: Michele Quigley Clinical Impression: PVD (peripheral vascular disease), Ischemic toe, Tobacco dependence Condition: Stable Coding Level of Care Code ED Health Information Internship for Edgar Patel
[2024-12-26] MEDS: HYDROmorphone 0.5 MG/0.5 ML INJ 1 MG IVP ×2 (09:58→13:34)
[2024-12-26] MEDS: ondansetron 2 mg/ML SDV 2 mL 4 MG IVP (10:04)
--- NOTE | 2024-12-26 10:34 | PC.PHAR ---
Patient states He had 2 Gabapentin 100mg on 12/25/24 and Ibuprofen, and 81mg asprin . Before arrival to [facility] he had smoked some Joy and cigarettes. He was relaesed from the Hospital in November but never picked up his Depokote due to being exspensive.
[2024-12-26 10:38] LABS: Basophils # 0.1 10^3/uL (0.0-0.1); Basophils % 0.3 %; Eosinophils % 0.1 %; Hematocrit 39.7 % (37-53); Lymphocytes # 2.1 10^3/uL (0.8-4.8); Lymphocytes % 12.8 %; Mean Corpuscular HGB Conc 32.2 g/dL (30-55); Mean Corpuscular Hemoglobin 31.6 pg (27-33); Mean Platelet Volume 9.8 fL (7.4-10.4); Monocytes # 1.1 10^3/uL (0.2-0.9); Monocytes % 6.6 %; Neutrophils # 13.13 10^3/uL (1.8-7.7); Neutrophils % 79.8 %; Nucleated Red Blood Cells % 0 %; Platelet Count 394 10^3/cmm (157-399); Red Blood Count 4.05 10^6/uL (3.85-5.65); Red Cell Distribution Width 13.6 % (12.1-15.1); White Blood Count 16.46 10^3/uL (3.29-11.43)
[2024-12-26 10:40] LABS: Erythrocyte Sedimentation Rate 30 mm/hr (0-10)
--- NOTE | 2024-12-26 10:41 | XR_ITS ---
WS: [id number] Exam: XR foot RT min 3V* [id number] Date/Time of Exam: 12/26/2024 10:45 AM Reason For Exam: 3rd toe infection No fracture or bone destruction. Degenerative changes in the IP joints and midfoot joints. Unremarkable soft tissues. XR/XR foot RT min 3V* [id number] IMPRESSION: 1. No fracture or bone destruction. Degenerative changes.
--- NOTE | 2024-12-26 10:48 | P.CONIM_ITS ---
Providers/Reason For Consult 2 Consulting Physician/Specialty*: Allen Schwartz D.P.M. Reason for Consult*: Ischemic right 3rd and 4th toes. History of Present Illness History of Present Illness Reuben Fontanez is a 64 year old male presents to the emergency department with intractable ischemic pain to the lower extremities and color changes to the right 4th and 3rd toes third toe is most prominent turned steinberg and blue sparing him to present to the emergency department. He has a significant past medical history he has an extensive history of tobacco use currently smoking half pack a day history of methamphetamine use and drug abuse. Patient endorses bilateral lower extremity pain at rest, he is unable to stand or walk more than a block due to pain. Review of Systems 2 General: Reports: 10 or more systems reviewed and unremarkable except in HPI and below Const: Denies: fever(s) or chills Eyes: Denies: change in vision Card: Denies: chest pain or palpitations Resp: Denies: dyspnea or productive cough GI: Denies: abdominal pain, nausea or vomiting : Denies: flank pain Musc: Reports: extremity swelling, joint stiffness and deformity Skin/Breast: Reports: erythema, sores, changes in skin color, dry skin, nail changes and change in hair Neuro: Reports: numbness in extremities, sensory changes and difficulty walking Psych: Denies: suicidal ideation Endo: Denies: change in body appearance Russ/Lymph: Denies: tender lymph nodes Medications/Allergies Home Medications ?Medication ?Instructions ?Recorded ?Confirmed ?Last Taken ?Type valproic acid 250 mg capsule 500 mg (2 x 250 mg) PO Q8 H 30 days 12/05/24 12/26/24 Unknown Rx #180 caps aspirin 81 mg tablet,delayed 81 mg PO DAILY 12/26/24 0 12/26/24 12/25/24 History release (Rico Low Dose Aspirin) ibuprofen 200 mg tablet (Advil) 800 mg PO Q6H PRN Pain 12/26/24 12/26/24 12/25/24 History Allergies Allergy/AdvReac Type Severity Reaction Status Date / Time Penicillins Allergy Unknown Unknown Verified 12/03/24 02:44 PFSH Acute 2 PFSH: Medical History Encephalomalacia with cerebral infarction Drug abuse Severe protein-calorie malnutrition Methamphetamine abuse Seizure Chronic pain Osteoarthritis Glaucoma Family History Son DVT (deep venous thrombosis) Social History Smoking and tobacco/nicotine status: current every day tobacco/nicotine user Alcohol intake: current Alcohol intake frequency: holidays/special occasions only Lives independently: Yes Vitals/I&O/Wt Last Vital Signs Temp 98.3 F 12/26/24 09:46 Pulse 102 H 12/26/24 09:46 Resp 20 H 12/26/24 09:46 BP 150/97 12/26/24 09:46 Pulse Ox 95 12/26/24 09:46 O2 Del Method Room Air 12/26/24 09:46 Weight last 48 hrs Weight 100 lb Physical Exam 2 Narrative: GENERAL: Patient is alert and oriented ?3 and in no acute distress. The following is a focused bilateral lower extremity exam. VASCULAR: Bilateral dorsalis pedis and posterior tibial arteries are nonpalpable. Unable to appreciate signal with pedal Doppler. Unable to palpate popliteal pulse bilaterally. Absent pedal hair growth. Rubor to the right forefoot. NEUROLOGICAL: Protective sensation intact to light touch to lower extremities. DERMATOLOGICAL: Ischemic appearing right third toe with rubor and blue undertone, eschar plantarly at the right third toe and fourth toe. MUSCULOSKELETAL: Pain to palpation diffusely bilateral lower extremities. Patient is hypersensitive likely ischemic pain induced. Data 12/27/24 01:13 12/27/24 01:13 Micro: Microbiology 12/26/24 10:33 Blood Culture - Preliminary Blood SPECIMEN COLLECTED 12/26/24 10:31 Blood Culture - Preliminary Blood SPECIMEN COLLECTED A&P Assessment and plan (1) Tobacco dependence: (2) PVD (peripheral vascular disease): (3) Ischemic toe: (4) Ischemic rest pain of lower extremity: (5) Critical ischemia of foot: Plan 64-year-old male with critical limb ischemia, unable to palpate bilateral pedal pulses or popliteal pulse. Prioritize vascular workup, CT angio pending, vascular consultation pending. I informed patient that he has at risk for loss of limb and loss of life requires prior authorization of vascular workup at this time. PDMP PDMP Reviewed: Not Reviewed Coding Level of Care Code Acute Code for Chg Fwd Diagnoses Tobacco dependence F17.200 PVD (peripheral vascular disease) I73.9 Ischemic toe I99.8 Ischemic rest pain of lower extremity M79.606; I99.8 Critical ischemia of foot I70.229
[2024-12-26 10:55] LABS: Alanine Aminotransferase < 5 U/L (0-41); Albumin Level 3.9 g/dL (3.5-5.2); Alkaline Phosphatase 88 U/L (40-130); Anion Gap 20.4 (5-19); Aspartate Amino Transferase 9 U/L (0-40); Blood Urea Nitrogen 12 mg/dL (8-23); Calcium 11.1 mg/dL (8.5-10.5); Carbon Dioxide 24 mmol/L (22-29); Chloride 97 mmol/L (98-107); Creatinine Clr Calc Pharmacy 69.2985; Globulin 3.8 g/dL (1.3-4.6); Glomerular Filtration Rate 113.9 mL/min (90-130); Glucose 126 mg/dL (65-115); Osmolality Calculated 285 mOsm/kg (285-295); Potassium 4.4 mmol/L (3.5-5.1); Sodium 137 mmol/L (136-145); Total Bilirubin 0.2 mg/dL (0.15-1.2); Total Protein 7.7 g/dL (6.6-8.7)
[2024-12-26 10:56] LABS: Lactic Sepsis W/Reflex 1.7 mmol/L (0.5-2.2)
--- NOTE | 2024-12-26 11:01 | CT_ITS ---
WS: [id number] CTA ABDOMINAL AORTA WITH RUNOFF TECHNIQUE: Contrast enhanced CTA of the abdominal aorta with bilateral lower extremity runoff. Multiplanar reformatted images were obtained. MIP reformats were also reviewed. CLINICAL INFORMATION: cta afro please COMPARISON: None. DLP: 1101.[address] scans at [facility] use at least one of these dose optimization techniques: automated exposure control; mA and/or kV adjustment per patient size (includes targeted exams where dose is matched to clinical indication); or iterative reconstruction. FINDINGS: Some images are limited due to significant motion artifact. Normal caliber abdominal aorta. Celiac and SMA are patent. Visualized renal arteries are patent. Single dominant RIGHT renal artery. Moderate stenosis in the distal abdominal aorta with surrounding mural thrombus. Dense vascular calcification. RIGHT: RIGHT common iliac artery is patent with dense calcification at the origin. Common iliac appears occluded in the mid segment. Small mild flow is visualized in the internal and external iliacs with segmental stenosis. RIGHT common femoral artery is patent. Deep femoral artery is patent. Tiny superficial femoral artery appears occluded just distal to the origin and remains occluded. Tiny popliteal artery reconstitutes above the knee in the popliteal fossa with somewhat diminutive but three-vessel runoff to the ankle. Diminutive peroneal artery. LEFT: LEFT common iliac artery appears occluded at the origin. External and internal iliac arteries appear occluded or nearly occluded. Reconstitution of the common femoral artery via the epigastric and collaterals. Deep femoral artery is patent. Tiny superficial femoral artery with severe stenosis distally. Proximal popliteal artery appears occluded. Popliteal artery reconstitutes above the knee with three-vessel runoff to the ankle. Advanced emphysematous changes in the lung bases. Fatty liver. Hepatic cyst. No hydronephrosis in either kidney. Urine distended bladder. Enlarged prostate. Bilateral ureteral jets visualized. CT/CT angio abd aorta runof [id number] IMPRESSION: Limited study due to motion and venous contamination. 1. RIGHT: RIGHT common iliac artery is occluded just distal to the origin. Rec onstitution of the external iliac and common femoral arteries. SFA appears occl uded just distal to the origin and remains occluded. Reconstitution of the popl iteal artery [id number] with three-vessel runoff to the ankle. Diminutive c nelia vessels with a tiny peroneal artery 2. LEFT common iliac artery appears occluded at the origin. External and inter nal iliac arteries appear occluded or nearly occluded. Reconstitution of the co mmon femoral artery via the epigastric and collaterals. Tiny superficial femora l artery with severe stenosis distally. Proximal popliteal artery appears occlu ded. Popliteal artery reconstitutes above the knee with three-vessel runoff to the ankle. 3. Normal caliber abdominal aorta with stenosis and tapering distally with per ipheral thrombus and peripheral calcification. Moderate stenosis distal aorta. 4. Celiac and SMA are patent.
--- NOTE | 2024-12-26 11:43 | PHA.VACGOAL ---
Vancomycin Goal - Goal Vancomycin Goal:: 15-20 mg/L Vancomycin Indication:: Other (necrotic toe) - Therapy Day of therpy:: Day []of [] . Actual body weight (kg): 100 lb - Data Labs: WBC 16.46 10^3/uL (3.29-11.43) H 12/26/24 10:31 RBC 4.05 10^6/uL (3.85-5.65) 12/26/24 10:31 Hgb 12.80 g/dL (11.27-16.99) 12/26/24 10:31 Hct 39.7 % (37-53) 12/26/24 10:31 MCV 98.0 fl (82-101) 12/26/24 10:31 MCH 31.6 pg (27-33) 12/26/24 10:31 MCHC 32.2 g/dL (30-55) 12/26/24 10:31 RDW 13.6 % (12.1-15.1) 12/26/24 10:31 Sodium 137 mmol/L (136-145) 12/26/24 10:31 Potassium 4.4 mmol/L (3.5-5.1) 12/26/24 10:31 Chloride 97 mmol/L (98-107) L 12/26/24 10:31 Carbon Dioxide 24 mmol/L (22-29) 12/26/24 10:31 Anion Gap 20.4 (5-19) H 12/26/24 10:31 BUN 12 mg/dL (8-23) 12/26/24 10:31 Creatinine 0.7 mg/dL (0.7-1.2) 12/26/24 10:31 GFR Calculation 113.9 mL/min (90-130) 12/26/24 10:31 Last dialysis session:: N/A Treatment plan:: new consult Regimen:: Initial loading dose of 1250 mg x1 per dosing protocol. Maintenance dose of 500 mg Q12H. Follow up:: Will continue to monitor and follow up daily.
[2024-12-26] MEDS: cefepime 2,000 mg SDV 2000 MG IVP (11:55)
[2024-12-26] MEDS: vancomycin 1,250 MG/250 ML PIGGYBACK 166.67 MG IV (11:56)
[2024-12-26] MEDS: iohexol 350 mg/mL 500 mL Btl (per mL) IV (12:53)
--- NOTE | 2024-12-26 13:20 | XACV_ITS ---
Ht: 178 cm Wt: 45 kg BSA: 1.47 m2 Any Known Allergies: Penicillins Gender: Male : 1960 Exam Type: Invasive Peripheral Vascular Procedure(s): Procedure Description: Peripheral Cath Diagnostic Procedure Procedure Description: Abdominal aortic angiography Exam Priority: Routine [id number], Mclean; Conclusions Indication for peripheral angiogram: Critical limb ischemia with worsening of pain at rest, gangrenous right third toe Catheters used: Pigtail to perform peripheral angiogramThrough left radial approach, pigtail was placed at T12 level peripheral angiogram with runoff was performedAbdominal aortogram: Distal complete 100% occlusion of aorta just below the right renal Right renal artery: No significant obstructive disease Left renal artery: No significant diseaseRight common iliac: 100% occluded at the ostium immediately reconstitute through the abdominal collaterals Right external iliac: Appeared to be patent but diffusely diseased vessel with luminal irregularities Right internal iliac: Appeared to be patent Right common femoral artery:: Appeared to be patent Right profundofemoral artery: Patent Right SFA: 100% occluded at the ostium Right popliteal artery: We were not able to visualize it but give a faint hint it is possibly patent as contrast timed out Right tibioperoneal trunk: Not visualized possible timed contrast Right anterior tibial artery: Not visualized possible timed out contrast Right anterior tibial artery: Not visualized possible time to control Right peroneal artery: Not visualized possible time but cannotLeft common iliac artery: 100% chronically occluded Left external iliac artery: 100% chronically occluded Left internal iliac artery: Appeared to be 100% occluded Left common femoral artery: Appeared to be patent from its origin Left profundofemoral artery: Patent appeared to be patent Left SFA artery: Appeared to be 100% occluded in the middle and reconstitute in the distal segment Left popliteal artery: Appeared to be patent Left tibioperoneal artery: Appeared to be 100% occluded Left anterior tibial artery: Not well-visualized probably timed out contrast Left posterior tibial artery: Not well-visualized probably time but cannot Left peroneal artery: Not well-visualized probably timed at contrast. Recommendations 1-Return to inpatient for close monitoring and routine cath care 2-Risk factor modification for secondary prevention 3-Statin and aspirin 81 mg life-long, if tolerated 4-Continue heparin drip once radial band comes off, 5-Ref to vascular surgery 6-Follow up with Dr. Mclean in four weeks and your primary care in 10 days. Hemodynamic Data Phase:Rest AO : 133.0 / 65.0 ( 87.0 ) @ 3:25:00 PM Access Site Site: Left Radial artery Sheath Size: 6 Fr Hemost... Method: TR Band Hemost... Success: Successful Procedure Details Findings Procedure Consent Obtained. Admit Source: Emergency department. Pre-Procedure Time Out. Identified patient by full name and date of as verbalized by the patient/guarantor. Does the consent match the physician's order: Yes. Accurate & Complete Informed Consent: Yes. Inpatient/Outpatient History & Physical on Chart: Yes. If H&P is completed, is and addenduem needed: No; If yes, is the addendum complete: N/A. Visualize and Verify Site with Patient/Guarantor: N/A. Relevant Radiology Images available: Yes. The risks, benefits, and alternatives of sedation and/or procedure were discussed by physician. The patient agrees to continue. Procedure started. Correct patient, site and procedure confirmed by cath team. Current diagnosis: Critical Limb Ischemia. PERRLA. 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 Lungs clear x 5 lobes. IV Site on Arrival: 20 gauge in the left anticubital. A 20 gauge IV was started in the right anticubital using aseptic technique. IV Fluids: 0.9% NaCl at KVO. 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 Oxygen started at 10liters/min via 100% non-rebreather mask. bilateral groins was prepped with chloroprep then draped in the usual sterile fashion. left radial was prepped with chloroprep then draped in the usual sterile fashion. Physician notified. Baseline sample Acquired. HR: 84 BPM. Anesthesia arrived to manage airway and sedation for patient, see anesthesia flowsheet. Physician arrived. Physician scrubbed in. Time out performed with cath team. Lidocaine 1% infiltrated to the left radial. Arterial access obtained. A 5Fr Angled pigtail catheter in over wire. Abdominal aortogram performed in AP @ 10 mL/sec for a total of 30 mL. Abdominal aortogram performed in AP @ 10 mL/sec for a total of 30 mL. Catheter removed over the exchange wire. A TR Band was successful obtaining hemostatsis at the Left Radial artery insertion site. No VTE prophylaxis required. Medication's Wasted: Lidocaine 1% = 18 mL. Medication's Wasted: Nitro = 49.8 mg. Medication's Wasted: Heparin = 1000 unit. Medication's Wasted: Other = Versed 2 mg, Fentanyl 100mcg. Total IV fluids: 300 mL. Post-op diagnosis: Occluded distal Aorta. Complications: None. Estimated blood loss: 5mL-10mL. Responsiveness - Normal response to verbal stimuli; alert and oriented, PERRLA. Airway - Unaffected, no intervention required; spontaneous ventilation. Circulation: W/N/L, pulses unchanged. Nausea/Vomiting: No. Procedure completed. Patient transferred by bed to 1st floor. Vital chart was stopped. Procedure Medications Start: 2:22 PM Stop: 2:22 PM Medication: Nitrogylcerin Amount: 200 mcg Route: I.A. Start: 2:31 PM Stop: 2:31 PM Medication: Heparin Amount: 5000 units Route: I.V. I, the attending physician, have reviewed and verified all procedure medications. Yes, all medications given per verbal order History/Risk Factors Hypertension: No Dyslipidemia: No Peripheral Arterial Disease (PAD): No Obesity: No Renal Disease: No Tobacco Use: Current/Recent(w/in 1 year) Prior Interventions PCI: No CABG: No Valve Surgery: No Report Signatures Finalized by Stanislav Mclean MD on 12/26/2024 03:10 PM
[2024-12-26] MEDS: nicotine 21 mg Patch 1 PATCH TRANSDERMA (13:45)
--- NOTE | 2024-12-26 13:53 | PC.NURSE ---
ATTEMPTED TO CALL PT FAMILY PER REQUEST BUT PHONE NUMBER WAS BUSY.
--- NOTE | 2024-12-26 14:01 | W.PM.OPSUD ---
Surgery/Procedure H&P Update DATE OF PROCEDURE: December 26, 2024 DATE H&P PERFORMED: 12/26/24 H&P UPDATE INFORMATION: I have reviewed H&P completed within last 30 days and I have examined patient prior to procedure PREOP DIAGNOSIS: Acute limb ischemia PRIMARY INDICATION FOR PROCEDURE: Indication: Acute limb ischemia with gangrene is third toe and possible embolization Urgent peripheral angiogram as in the CT scan patient was moving around with a lot of artifact and because of the fact he is in continuous pain PATIENT REASSESSED PRIOR TO SEDATION, WITH NO CHANGE NOTED: Yes PHYSICAL EXAM: alert, oriented x 3, clear to auscultation bilaterally, regular rate & rhythm and operative site marked AIRWAY EVAL/ANESTHESIA PLAN: ASA II, Risks, benefits & alternatives of sedation and/or procedure discussed and Patient agrees to continue as planned ADDITIONAL INFORMATION: Patient has been discussed in detail all risk-benefit and alternative for the procedure. Patient understand 2 to 4% risk of stroke major bleed, patient understand 5 to 6% risk for contrast-induced nephropathy leading to temporary or permanent dialysis. Patient understand 5 to 10% risk for minor major bleeding pseudoaneurysm urgent or emergent vascular surgery. Patient understand risk for myocardial infarction which is 5 to 10% given his history, patient clearly understand risk for losing leg amputation as he has been sitting on it for the last 2 weeks and now writhing in pain with gangrenous toes. He would like to proceed with it. We have consulted anesthesia colleagues as patient is not able to lay flat on the bed.
--- NOTE | 2024-12-26 14:08 | P.CONIM_ITS ---
<Statement entered by Stanislav Mclean MD - 12/26/24 15:20> Patient was evaluated and cared for in conjunction with an advanced practice practitioner. I personally examined the patient and reviewed the chart and all pertinent data including imaging, telemetry, and laboratory results. I discussed the patient in detail with the advanced practice practitioner. Please see their note for complete H&P testing result and agreed upon plan of care for the patient. 64-year-old male past medical history as defined below with history of drug abuse, continues tobacco abuse presented with 2 weeks pain of right foot he was holding his foot in his hand, he has blackened 3rd and 4th toe appeared to be gangrenous. Patient would not like to be touched and let me examine much. It appeared to me that he has acute on chronic limb ischemia definitely critical limb ischemia with constant pain at rest therefore we decided to take him to the lab for peripheral angiogram. GENERAL: Patient is alert, awake and oriented x3. Moderate to severe distress with holding right foot HEART: Regular S1 and S2. No murmur, rub or gallop. LUNGS: Clear to auscultate bilaterally. CENTRAL NERVOUS SYSTEM: Grossly nonfocal. 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 Please see detailed report which is as follows as well and documented separately Abdominal aortogram: Distal complete 100% occlusion of aorta just below the right renal Right renal artery: No significant obstructive disease Left renal artery: No significant diseaseRight common iliac: 100% occluded at the ostium immediately reconstitute through the abdominal collaterals Right external iliac: Appeared to be patent but diffusely diseased vessel with luminal irregularities Right internal iliac: Appeared to be patent Right common femoral artery:: Appeared to be patent Right profundofemoral artery: Patent Right SFA: 100% occluded at the ostium Right popliteal artery: We were not able to visualize it but give a faint hint it is possibly patent as contrast timed out Right tibioperoneal trunk: Not visualized possible timed contrast Right anterior tibial artery: Not visualized possible timed out contrast Right anterior tibial artery: Not visualized possible time to control Right peroneal artery: Not visualized possible time but cannotLeft common iliac artery: 100% chronically occluded Left external iliac artery: 100% chronically occluded Left internal iliac artery: Appeared to be 100% occluded Left common femoral artery: Appeared to be patent from its origin Left profundofemoral artery: Patent appeared to be patent Left SFA artery: Appeared to be 100% occluded in the middle and reconstitute in the distal segment Left popliteal artery: Appeared to be patent Left tibioperoneal artery: Appeared to be 100% occluded Left anterior tibial artery: Not well-visualized probably timed out contrast Left posterior tibial artery: Not well-visualized probably time but cannot Left peroneal artery: Not well-visualized probably timed at contrast. Plan: Continue IV heparin Will refer patient to vascular surgery. Providers/Reason For Consult 2 Consulting Physician/Specialty*: Dr. Mclean Reason for Consult*: acute limb threatening ischemia Requesting Physician: Dr. Ramey Attending Physician: Stanislav Mclean MD History of Present Illness History of Present Illness Reuben Fontanez is a 64 year old male who came into the ER this morning with a major complaint of right hip pain. Hx of meth, cocaine, and nicotine abuse. Reported last use was if 48 hours ago. He states it has been going on for couple weeks. He states for couple weeks now he has had a black right third toe. He is in agonizing pain at the time of our visit. He is having rest pain. The patient denies any history of heart disease but states that he does not take any medication and does not see physicians due to his insurance. He will not let us touch him to assess pulses. He was threatening to hit Dr. Mclean if he touched him, therefore we are not able to feel or doppler for pulses. He has been given fentanyl 100 mcg and dilaudid 1 mg without relief. CTA aorta with runnoff was performed, but very hard to read due to there is quite a bit of artifact from patient moving. Dr. Mclean did review the CTA. Review of Systems 2 Narrative: Consitutional: denies fever, chills, body aches, or changes in appetite, denies abnormal weight loss Eyes: Denies changes in vision Card: Denies chest pain, palpitations, irregular heart rhythm, edema, syncope, shortness of breath, orthopnea, leg pain with exertion Resp: Denies shortness of breath, denies hemoptysis, denies cough : denies blood in urine, denies dysuria Musc:Reports severe rest pain in the right third toe Skin: Reports black third toe x2 weeks Neuro: Denies nubmness in extremities, h/a, s/s of stroke Medications/Allergies Home Medications ?Medication ?Instructions ?Recorded ?Confirmed ?Last Taken ?Type valproic acid 250 mg capsule 500 mg (2 x 250 mg) PO Q8 H 30 days 12/05/24 12/26/24 Unknown Rx #180 caps aspirin 81 mg tablet,delayed 81 mg PO DAILY 12/26/24 0 12/26/24 12/25/24 History release (Rico Low Dose Aspirin) ibuprofen 200 mg tablet (Advil) 800 mg PO Q6H PRN Pain 12/26/24 12/26/24 12/25/24 History Allergies Allergy/AdvReac Type Severity Reaction Status Date / Time Penicillins Allergy Unknown Unknown Verified 12/03/24 02:44 PFSH Acute 2 PFSH: Medical History Encephalomalacia with cerebral infarction Drug abuse Severe protein-calorie malnutrition Methamphetamine abuse Seizure Chronic pain Osteoarthritis Glaucoma Family History Son DVT (deep venous thrombosis) Social History Smoking and tobacco/nicotine status: current every day tobacco/nicotine user Alcohol intake: current Alcohol intake frequency: holidays/special occasions only Lives independently: Yes Vitals/I&O/Wt Last Vital Signs Temp 98.3 F 12/26/24 09:46 Pulse 79 12/26/24 11:53 Resp 20 H 12/26/24 09:46 BP 137/101 12/26/24 11:53 Pulse Ox 100 12/26/24 11:53 O2 Del Method Nasal Cannula 12/26/24 11:53 O2 Flow Rate 2 12/26/24 11:53 Weight last 48 hrs Weight 100 lb Physical Exam 2 Narrative: General: severe rest pain in right toe Respiratory: Normal respiratory effort, clear to auscultation bilaterally throughout all lung tovar, no use of accessory muscles Cardio: No JVD, regular rate, regular rhythm, S1 S2 normal, no murmurs Extremities: Full ROM, normal, normal capillary refill, no cyanosis or edema Neuro: Alert and oriented x4, no focal motor deficits Psych: very agitated, threatened to hit anyone that touched his foot Skin: Right third toe is black and ischemia, gangrene present Data 12/26/24 10:31 12/26/24 10:31 Micro: Microbiology 12/26/24 10:33 Blood Culture - Preliminary Blood SPECIMEN COLLECTED 12/26/24 10:31 Blood Culture - Preliminary Blood SPECIMEN COLLECTED A&P Assessment and plan (1) Critical ischemia of foot: (2) Ischemic rest pain of lower extremity: Plan Patient was taken to the bed laborer urgently for critical limb threatening ischemia for possible revascularization. He agreed completely given risks and benefits. PDMP PDMP Reviewed: Not Reviewed Consult Attestations 2 Medical Necessity Statement: Patient stay expected to cross 2 midnights due to critical limb threatening ischemia. Coding Level of Care Code Acute Code for [facility] Diagnoses Critical ischemia of foot I70.229 Ischemic rest pain of lower extremity M79.606; I99.8
--- NOTE | 2024-12-26 14:36 | P.ANESASSM_ITS ---
Pre-Anesthetic Assessment Height/Weight: Height 1.78 m Weight 45.359 kg Temp Pulse Resp BP Pulse Ox O2 Del Method O2 Flow Rate 98.3 F 79 20 H 137/101 100 Nasal Cannula 2 12/26/24 09:46 12/26/24 11:53 12/26/24 09:46 12/26/24 11:53 12/26/24 11:53 12/26/24 11:53 12/26/24 11:53 Preop Diagnosis: Acute limb ischemia Social Alcohol (Methamphetamine use within 48 hours ) and Tobacco Exam alert, oriented x 3, clear to auscultation bilaterally and regular rate & rhythm Airway Submandibular: within normal limits Cervical ROM: within normal limits Mallampati: Class I Dentition: other (PROFOUND TERMINAL DENTAL DISEASE THROUGHOUT) Pulmonary Chronic Obstructive Pulmonary Disease CV/HEM Acute leg ischemis Anesthetic Plan ASA status: 4E Anesthesia: MAC Medications/Allergies Home Medications ?Medication ?Instructions ?Recorded ?Confirmed ?Last Taken ?Type valproic acid 250 mg capsule 500 mg (2 x 250 mg) PO Q8 H 30 days 12/05/24 12/26/24 Unknown Rx #180 caps aspirin 81 mg tablet,delayed 81 mg PO DAILY 12/26/24 0 12/26/24 12/25/24 History release (Rico Low Dose Aspirin) ibuprofen 200 mg tablet (Advil) 800 mg PO Q6H PRN Pain 12/26/24 12/26/24 12/25/24 History Allergies Allergy/AdvReac Type Severity Reaction Status Date / Time Penicillins Allergy Unknown Unknown Verified 12/03/24 02:44 [facility] Anesthesia Medical History Encephalomalacia with cerebral infarction Drug abuse Severe protein-calorie malnutrition Methamphetamine abuse Seizure Chronic pain Osteoarthritis Glaucoma Family History Son DVT (deep venous thrombosis) Social History Smoking and tobacco/nicotine status: current every day tobacco/nicotine user Alcohol intake: current Alcohol intake frequency: holidays/special occasions only Lives independently: Yes Data Anesthesia 12/26/24 10:31 12/26/24 10:31 Short CBC 12/26/24 Range/Units 10:31 WBC 16.46 H (3.29-11.43) 10^3/uL Hgb 12.80 (11.27-16.99) g/dL Hct 39.7 (37-53) % MCV 98.0 (82-101) fl Plt Count 394 (157-399) 10^3/cmm Neut % (Auto) 79.8 % Neut # (Auto) 13.13 H (1.8-7.7) 10^3/uL BMP 12/26/24 10:31 Sodium 137 Potassium 4.4 Chloride 97 L Carbon Dioxide 24 BUN 12 Creatinine 0.7 Glucose 126 H Calcium 11.1 H Liver Function 12/26/24 Range/Units 10:31 Total Bilirubin 0.2 (0.15-1.2) mg/dL AST 9 (0-40) U/L ALT < 5 (0-41) U/L Alkaline Phosphatase 88 (40-130) U/L Albumin 3.9 (3.5-5.2) g/dL Coags 12/26/24 10:31 ESR 30 H C-Reactive Protein 23.0 H Microbiology 12/26/24 10:33 Blood Culture - Preliminary Blood SPECIMEN COLLECTED 12/26/24 10:31 Blood Culture - Preliminary Blood SPECIMEN COLLECTED Cardiac Studies: 2 No Data to Display
[2024-12-26] MEDS: sodium chloride 0.9% 1,000 ML 100 ML IV (15:35)
[2024-12-26] MEDS: HYDROcodone-acetaminophen 5-325 mg Tablet 1 TAB PO ×2 (17:06→20:56)
[2024-12-26] MEDS: metroNIDAZOLE IV 500 MG/100 ML PREMIX 100 MG IV (18:10)
[2024-12-26] MEDS: ciprofloxacin 400 MG/200 ML PREMIX 200 MG IV (18:12)
--- NOTE | 2024-12-26 18:38 | PC.NURSE ---
received patient from cytogenetics laboratory manager staff at 1514. Patient is sleeping, but easily awoken. Oriented to person, place, time, and situation. BP: 135/77, hr: 67, RR: 10, SPO2: 94% on room air.
--- NOTE | 2024-12-26 18:46 | PC.NURSE ---
Shift summary: Uneventful shift. rested in bed since arrival from labeling machine operator. has been able to void since. TR band reduced down to 10mL of air, started with 15. Unable to complete peripheral cath procedure due to significant aortic occlusion. Physicians looking for vascular surgeon to accept. Likely [facility], but no confirmation or bed assigned at time of this note.
[2024-12-26] MEDS: acetaminophen 325 mg Tablet 650 MG PO (20:00)
[2024-12-26] MEDS: atorvastatin 40 mg Tablet 80 MG PO (20:00)
--- NOTE | 2024-12-26 20:38 | PM.SDS ---
Short Stay Summary Providers Date of Admit/Discharge: 12/26/24 Attending Provider: Michele Quigley Chief Complaint: necrotic toe HPI History of Present Illness The patient presents with severe lower extremity pain and darkening of third and fourth right toes. He reports that his toes have turned dark, and he experiences excruciating, burning pain that is aggravated by even light touch, with the pain lasting for hours after palpation. The patient states that he has difficulty ambulating, noting that he cannot walk more than a half block without significant discomfort. Prior workup in the emergency setting included a CT scan and an angiogram, which revealed complete occlusion of both common arteries, consistent with severe arterial disease. He was initially admitted to cardiac stepdown unit, started anticoagulation with heparin drip, continuing on aspirin. Empirically started on ciprofloxacin and Flagyl for antibiotic coverage with leukocytosis of 16. ESR 30. CRP 23. Renal function intact. Podiatry was initially consulted. He underwent coronary angiography by cardiology, however, with confirmed Leriche syndrome needing vascular surgery intervention for which arrangements are made on discussion with patient to [facility] where he is currently accepted for further assessment management by vascular surgeon Dr. Arevalo and cooperation with the hospitalist team accepting Dr. Mead. Case discussed with ER provider, cardiology. He has been counseled on smoking cessation, smokes about 1/2 packs a day. He realizes necessity of stopping smoking. He is agreeable to nicotine replacement. Review of Systems Const: Denies: fever(s), chills, body aches or malaise ENMT: Denies: throat pain Card: Denies: chest pain, edema, pre-syncope or dyspnea on exertion Resp: Denies: dyspnea, productive cough, change in phlegm color or hemoptysis GI: Denies: abdominal pain, nausea, vomiting, diarrhea, constipation, hematochezia or melena : Denies: flank pain, difficulty urinating, urinary frequency or hematuria Musc: Reports: other (Right third and fourth toe and foot pain); Denies: back pain, joint swelling or joint redness Skin/Breast: Reports: other (Right third and fourth toes turning black); Denies: rash Neuro: Denies: headache(s) or confusion Home Meds/Allergies Home Medications and Allergies Home Medications ?Medication ?Instructions ?Recorded ?Confirmed ?Type aspirin 81 mg tablet,delayed 81 mg PO DAILY 12/26/24 12/26/24 History release (Rico Low Dose Aspirin) ibuprofen 200 mg tablet (Advil) 800 mg PO Q6H PRN Pain 12/26/24 12/26/24 History Allergies Allergy/AdvReac Type Severity Reaction Status Date / Time Penicillins Allergy Unknown Unknown Verified 12/03/24 02:44 PFSH Acute PFSH: Medical History Encephalomalacia with cerebral infarction Drug abuse Severe protein-calorie malnutrition Methamphetamine abuse Seizure Chronic pain Osteoarthritis Glaucoma Family History Son DVT (deep venous thrombosis) Social History Smoking and tobacco/nicotine status: current every day tobacco/nicotine user Alcohol intake: current Alcohol intake frequency: holidays/special occasions only Lives independently: Yes Vitals/I&O/Wt Last Vital Signs Temp 97.4 F L 12/26/24 19:48 Pulse 79 12/26/24 19:48 Resp 18 12/26/24 19:48 BP 152/80 12/26/24 19:48 Pulse Ox 97 12/26/24 19:48 O2 Del Method Room Air 12/26/24 19:48 O2 Flow Rate 2 12/26/24 11:53 12/26/24 12/26/24 12/26/24 06:59 14:59 22:59 Intake Total 550 / 550 Balance 550 / 550 Weight last 48 hrs Weight 47.582 kg Weight 45.359 kg Physical Exam Const: COMMON NORMALS: patient oriented x3 and alert GENERAL APPEARANCE: cooperative ORIENTATION/CONSCIOUSNESS: Yes awake HENMT: COMMON NORMALS: oropharynx normal Neck/C-Spine: COMMON NORMALS: no JVD Resp: COMMON NORMALS: normal respiratory effort and clear to auscultation bilaterally AUSCULTATION: clear to auscultation bilaterally Cardio: COMMON NORMALS: no JVD, regular rhythm, S1 normal heart sound present, S2 normal heart sound present and No murmurs present (Cardio) RHYTHM: regular rhythm HEART SOUNDS: S1 normal heart sound present and S2 normal heart sound present GI: COMMON NORMALS: Normal to inspection, nondistended, normoactive bowel sounds present, Soft to palpation and non-tender PALPATION: Yes Soft to palpation Extremity: COMMON NORMALS: no joint enlargement and no pedal edema OTHER: Black right third and fourth toes. Neuro: COMMON NORMALS: patient oriented x3 and moves all extremities SENSORIUM/ORIENTATION: Yes alert SSS Data Data Completed and Pending: Completed Studies During Hospitalization Category Date Time Status CT angio abd aort a runof [id number] Stat Cat Scan 12/26/24 11:01 Completed FURNITURE PACKER request for service Stat Exams 12/26/24 13:20 Completed XR foot RT min 3V * [id number] Stat Exams 12/26/24 10:41 Completed Pending at discharge Category Date Time Status Basic Metabolic P hunter AM LABS Lab 12/27/24 04:00 Ordered Blood Culture Sta t Lab 12/26/24 10:33 Results CBC Auto Diff [Co mplete Blood Count w/Auto] AM LABS Lab 12/27/24 04:00 Ordered Platelet Count Q2 D Lab 12/28/24 04:00 Ordered Platelet Count Q2 D Lab 12/30/24 04:00 Ordered Diagnoses at Discharge Discharge Diagnosis (1) Critical ischemia of foot: Status: Acute (2) Ischemic rest pain of lower extremity: Status: Acute Discharge Plan Discharge Patient Disposition: Xfer Short-Term Hosp Condition: Stable Prescriptions: No Action valproic acid 250 mg capsule 500 mg PO Q8H 30 Days Qty: 180 0RF aspirin [Rico Low Dose Aspirin] 81 mg Tablet,Delayed Release (Dr/Ec) 81 mg PO DAILY ibuprofen [Advil] 200 mg Tablet 800 mg PO Q6H PRN (Reason: Pain) Patient Instructions: Opioid Safety Attestations Medical Necessity Statement*: Initially admission to cardiac stepdown unit, however, requiring assessment management by vascular surgery for which transfer is being arranged to [facility]. Time Spent in Patient Care*: greater than 30 min Quality Metrics Clinical Quality Measures: [ No reported AMI, CVA or VTE this stay] Diagnoses Critical ischemia of foot I70.229 Ischemic rest pain of lower extremity M79.606; I99.8
[2024-12-26] MEDS: heparin drip 25,000 UNIT/500 ML PREMIX 13 UNIT IV (21:03)
[2024-12-27] MEDS: HYDROmorphone 0.5 MG/0.5 ML INJ IVP ×2 (00:33→04:14)
[2024-12-27] MEDS: metroNIDAZOLE IV 500 MG/100 ML PREMIX 100 MG IV (00:33)
[2024-12-27 01:29] LABS: Basophils % 0.3 %; Eosinophils # 0.1 10^3/uL (0.0-0.8); Eosinophils % 0.7 %; Hematocrit 34.2 % (37-53); Lymphocytes # 2.3 10^3/uL (0.8-4.8); Lymphocytes % 19.7 %; Mean Corpuscular HGB Conc 31.6 g/dL (30-55); Mean Corpuscular Volume 101.5 fl (82-101); Monocytes # 0.9 10^3/uL (0.2-0.9); Neutrophils # 8.34 10^3/uL (1.8-7.7); Neutrophils % 70.9 %; Nucleated Red Blood Cells % 0 %; Platelet Count 427 10^3/cmm (157-399); Red Blood Count 3.37 10^6/uL (3.85-5.65); Red Cell Distribution Width 13.8 % (12.1-15.1); White Blood Count 11.77 10^3/uL (3.29-11.43)
[2024-12-27 01:44] LABS: Partial Thromboplastin Time 38.1 SECONDS (23.9-36.7)
[2024-12-27 01:49] LABS: Anion Gap 13.1 (5-19); Blood Urea Nitrogen 9 mg/dL (8-23); Calcium 9.7 mg/dL (8.5-10.5); Carbon Dioxide 25 mmol/L (22-29); Chloride 101 mmol/L (98-107); Creatinine Clr Calc Pharmacy 72.6947; Glomerular Filtration Rate 113.9 mL/min (90-130); Glucose 112 mg/dL (65-115); Osmolality Calculated 279 mOsm/kg (285-295); Potassium 4.1 mmol/L (3.5-5.1); Sodium 135 mmol/L (136-145)
[2024-12-27] MEDS: heparin 5,000 unit/mL INJ 1 mL IVP (02:13)
[2024-12-27 02:30] VITALS: PULSE 72
[2024-12-27] MEDS: HYDROcodone-acetaminophen 5-325 mg Tablet 1 TAB PO (02:52)
[2024-12-27] MEDS: ciprofloxacin 400 MG/200 ML PREMIX 200 MG IV (04:34)
[2024-12-27] MEDS: diphenhydrAMINE 50 mg Capsule PO (04:42)
[2024-12-27 04:47] VITALS: BP 139/103; PULSE 82; RESP 22; TEMP 36.3; O2SAT 98
[2024-12-27] MEDS: HYDROmorphone 0.5 MG/0.5 ML INJ 2 MG IVP (05:14)
[2024-12-27 06:00] VITALS: PULSE 70
[2024-12-27 07:19] VITALS: BP 170/99; PULSE 72; RESP 10; TEMP 35.9; O2SAT 95
--- NOTE | 2024-12-27 08:27 | ANE.PACU2 ---
Inpatient post-anesthesia follow up: Vital signs: Temperature 96.6 F Pulse Rate 72 Respiratory Rate 10 Blood Pressure [Ri ght Arm] 123/72 Blood Pressure 170/99 Pulse Oximetry 95 Oxygen Delivery Me thod Nasal Cannula Oxygen Flow Rate 2 Fraction of Inspir ed Oxygen Hydration adequate: Yes Nausea and vomiting: No Pain level: 1 Mental status: Baseline
== END 2024-12-27 08:00 | disposition short-term general hospital (02) | DRG 299 ==
LOC: ER 10:47 → OR 13:46 → CSU 14:34
PROVIDERS: Internal Medicine Cardiovascular Disease; Admitting Provider Internal Medicine; Emergency Provider Emergency Medicine; Visit Provider Internal Medicine
PROC: B41DYZZ Fluoroscopy of Aorta and Bilateral Lower Extremity Arteries using Other Contrast (ICD-10-PCS; principal; 2024-12-26 14:45)
DX: I70.261 Atherosclerosis of native arteries of extremities with gangrene, right leg (principal); E43 Unspecified severe protein-calorie malnutrition; I74.09 Other arterial embolism and thrombosis of abdominal aorta; Z68.1 Body mass index [BMI] 19.9 or less, adult; F17.210 Nicotine dependence, cigarettes, uncomplicated; G93.89 Other specified disorders of brain; F15.10 Other stimulant abuse, uncomplicated; G89.29 Other chronic pain; M19.90 Unspecified osteoarthritis, unspecified site; H40.9 Unspecified glaucoma
CPT/HCPCS: 36415; 73630; 75625; 75635; 75716; 80048; 80053; 83605; 85025; 85651; 85730; 86140; 87040; 96365; 96367; 96374; 96375; 96376; 99285; C1769; C1887; C1894; J0692; J0744; J1171; J1644; J2250; J2405; J2704; J3010; J3370; J3490; J7030; J9999; Q0163; Q9967

== ENCOUNTER 2025-01-14 12:32 | Emergency (ER) | payer OTHER, SELFPAY ==
[2025-01-14 12:39] VITALS: BP 120/74; PULSE 101; TEMP 36.8; O2SAT 98; BMI 14.6
[2025-01-14 13:24] LABS: Basophils # 0.1 10^3/uL (0.0-0.1); Basophils % 0.7 %; Eosinophils # 0.1 10^3/uL (0.0-0.8); Eosinophils % 0.9 %; Hematocrit 35.9 % (37-53); Lymphocytes # 1.5 10^3/uL (0.8-4.8); Lymphocytes % 13.8 %; Mean Corpuscular Hemoglobin 31.3 pg (27-33); Mean Corpuscular Volume 97.6 fl (82-101); Mean Platelet Volume 9.3 fL (7.4-10.4); Monocytes # 0.9 10^3/uL (0.2-0.9); Neutrophils # 8.06 10^3/uL (1.8-7.7); Neutrophils % 76.2 %; Nucleated Red Blood Cells % 0 %; Platelet Count 439 10^3/cmm (157-399); Red Blood Count 3.68 10^6/uL (3.85-5.65); Red Cell Distribution Width 14.2 % (12.1-15.1); White Blood Count 10.57 10^3/uL (3.29-11.43)
[2025-01-14] MEDS: HYDROmorphone 0.5 MG/0.5 ML INJ IVP (13:27)
[2025-01-14] MEDS: ondansetron 2 mg/ML SDV 2 mL 4 MG IVP (13:27)
[2025-01-14 13:28] VITALS: BP 129/85; PULSE 86; RESP 18; O2SAT 96
[2025-01-14 13:40] LABS: Alanine Aminotransferase 21 U/L (0-41); Albumin Level 3.7 g/dL (3.5-5.2); Alkaline Phosphatase 93 U/L (40-130); Blood Urea Nitrogen 12 mg/dL (8-23); Carbon Dioxide 26 mmol/L (22-29); Chloride 98 mmol/L (98-107); Creatinine Clr Calc Pharmacy 58.2112; Globulin 3.3 g/dL (1.3-4.6); Glomerular Filtration Rate 97.6 mL/min (90-130); Glucose 123 mg/dL (65-115); Osmolality Calculated 281 mOsm/kg (285-295); Sodium 135 mmol/L (136-145); Total Bilirubin 0.2 mg/dL (0.15-1.2)
[2025-01-14 13:42] LABS: Anion Gap 15.5 (5-19); Potassium 4.5 mmol/L (3.5-5.1)
[2025-01-14 13:43] LABS: Aspartate Amino Transferase 25 U/L (0-40)
[2025-01-14 14:28] VITALS: BP 108/70; PULSE 82; O2SAT 95
--- NOTE | 2025-01-14 14:53 | ED_ITS ---
HPI - General Adult 2 General: Chief complaint: General Medical Stated complaint: R foot pain, R side groin pain Time Seen by Provider: 01/14/25 12:59 Source: patient Mode of arrival: ambulatory Limitations: no limitations History of Present Illness: Patient is a 64-year-old male with past medical history of substance abuse who presents the emergency department complaining of postoperative right foot pain abdominal pain. Of note, on 12/26 of this month he was admitted to the hospital with critical ischemia of the foot where he had subsequent right 3rd and 4th digit amputation with Dr. Schwartz. This also turned into a catheterization procedure with Dr. Khan, where he was noted to have areas of 100% occlusion along the right lower extremity arterial system. States that has been healing well he is just having some chronic pain here and has been unable to get in with regular doctor. Also recently underwent abdominal surgery at [facility], and is concerned of swelling at one of the incisional sites. Also has jessica along the center of the abdomen that he is questioning if they are healing well. Overall states that he feels okay just has not been able to get a hold of his providers for pain medication, has been taking in excess amount of Tylenol. Son in the room expresses concern over the amount of Tylenol he is been taking and states that he has had episodes of inability to walk at home due to the pain in his foot. Patient denying any fever, shortness of breath, chest pain, nausea/vomiting, or other symptoms at this time. States that he has upcoming appointment with his general surgeon in regards to his recent abdominal surgery. Patient currently on antibiotics and taking baby aspirin. Onset (ago): day(s) Location: abdomen, right and lower extremity Associated symptoms: Deny chest pain, dyspnea, headache(s), nausea, rash, palpitations or vomiting Treatments prior to arrival: aspirin and other (Acetaminophen) Related Data Home Medications ?Medication ?Instructions ?Recorded ?Confirmed aspirin 81 mg tablet,delayed 81 mg PO DAILY 12/26/24 0 01/14/25 release (Rico Low Dose Aspirin) ibuprofen 200 mg tablet (Advil) 800 mg PO Q6H PRN Pain 12/26/24 01/14/25 atorvastatin 40 mg tablet 40 mg PO DAILY 01/14/2512/18 doxycycline hyclate 100 mg tablet 100 mg PO BID 01/14/25 sulfamethoxazole 800 1 tab PO BID 01/14/25 mg-trimethoprim 160 mg tablet Previous Rx's ?Medication ?Instructions ?Recorded ketorolac 10 mg tablet 10 mg PO Q8H PRN pain #15 ta bs 01/14/25 Allergies Allergy/AdvReac Type Severity Reaction Status Date / Time Penicillins Allergy Unknown Unknown Verified 01/14/25 12:45 Review of Systems 2 General: Reports: 10 or more systems reviewed and unremarkable except in HPI and below Const: Denies: fever(s), chills or fatigue Eyes: Denies: change in vision ENMT: Denies: throat pain, ear or mastoid pain or nasal discharge Card: Denies: chest pain, palpitations, swelling of feet/ankles or lightheadedness Resp: Denies: dyspnea, productive cough or wheezing GI: Reports: abdominal pain and other (abdominal swelling at incision); Denies: nausea, vomiting, diarrhea or constipation : Denies: flank pain, difficulty urinating, dysuria or urinary frequency Musc: Reports: extremity pain (rt foot); Denies: neck pain, back pain or joint pain Skin/Breast: Denies: rash Neuro: Denies: headache(s), numbness in extremities or weakness in extremities PFSH ED 2 PFSH: Medical History Encephalomalacia with cerebral infarction Drug abuse Severe protein-calorie malnutrition Methamphetamine abuse Seizure Chronic pain Osteoarthritis Glaucoma Family History Son DVT (deep venous thrombosis) Social History Smoking and tobacco/nicotine status: current every day tobacco/nicotine user Alcohol intake: current Alcohol intake frequency: holidays/special occasions only Lives independently: Yes Physical Exam 2 Const: COMMON NORMALS: no acute distress, patient oriented x3 and alert G ENERAL APPEARANCE: cooperative and comfortable NUTRITIONAL APPEARANCE: c achectic ORIENTATION/CONSCIOUSNESS: Yes awake HENMT: COMMON NORMALS: normocephalic and atraumatic HEAD & SCALP: n ormocephalic and atraumatic Eye: COMMON NORMALS: Equal, round and reactive pupils present, EOMs intact bilaterally and conjunctivae normal CONJUNCTIVA: Yes conjunctivae normal P UPIL: Yes Equal, round and reactive pupils present Neck/C-Spine: COMMON NORMALS: full ROM Chest: COMMONS NORMALS: normal inspection of the chest Resp: COMMON NORMALS: normal respiratory effort, No retractions, No use of accessory muscles and clear to auscultation bilaterally AUSCULTATION: clear to auscultation bilaterally Cardio: COMMON NORMALS: regular rate, regular rhythm, S1 normal heart sound present, S2 normal heart sound present, No gallops present (Cardio), No murmurs present (Cardio) and No rub (Cardio) RATE: regular rate RHYTHM: regular rhythm HEART SOUNDS: S1 normal heart sound present and S2 normal heart sound present GI: OTHER: Postoperative incision along center of abdomen, multiple jessica present in this wound does appear to be well-healing. To the pelvic region, there are 2 separate incisions, the left appears well-healed, however the right there is presence of an incisional hernia with no overlying redness or signs of incarceration or strangulation. Mildly tender to palpation. The rest of his abdomen is palpated and nontender. Extremity: COMMON NORMALS: full ROM, no calf tenderness and no pedal edema NARRATIVE EXTREMITY EXAM: Previous amputation to right 3rd and 4th lower digits, appears well-healing with no active bleeding or drainage. Nontender to palpation. Pulses palpable, no swelling. Previous incision along right medial calf and right medial thigh, appears to be well-healing as well. Neuro: COMMON NORMALS: patient oriented x3, CN's II-XII intact bilaterally, moves all extremities, no focal motor deficits and no sensory deficits noted SENSORIUM/ORIENTATION: Yes alert Course 2 Vital Signs: Vital signs: Vital Signs Temperature 98.3 F 01/14/25 12:39 Pulse Rate 82 01/14/25 14:28 Respiratory Rate 18 01/14/25 13:28 Blood Pressure 108/70 01/14/25 14:28 Pulse Oximetry 95 01/14/25 14:28 Oxygen Delivery Me thod Room Air 01/14/25 13:[address] [facility] - General Adult Medical Decision Making Patient presenting complaining of pain to abdomen as well as to his right foot, where he recently underwent surgery for both sites. His right foot surgery was performed here with Dr. Schwartz and Dr. Khan, as he had a catheterization procedure and amputation. He states that overall the area has been healing well but he has had worsening pain. States he was not discharged with pain medications as all of them taken Tylenol in excess. I encouraged him to take Tylenol appropriately in this regard, labs were obtained overall unremarkable including normal LFTs. With his abdomen, there is presence of incisional hernia that was causing him a mild amount of pain, though it did not appear incarcerated or strangulated. I informed him to follow-up with his general surgeon in the next couple of days to have this evaluated, will send Toradol to pharmacy to treat with and he is stable for discharge at this time as his foot seem to be healing well and there is no need for further workup or imaging at this time. Pain controlled after Dilaudid given here, he is symptom-free at this time discharged with return precautions given. Patient and son endorsed understanding. Lab Data 01/14/25 13:13 01/14/25 13:13 Laboratory Results WBC 10.57 10^3/uL (3.29-11.43) 01/14/25 13:13 RBC 3.68 10^6/uL (3.85-5.65) L 01/14/25 13:13 Hgb 11.50 g/dL (11.27-16.99) 01/14/25 13:13 Hct 35.9 % (37-53) L 01/14/25 13:13 MCV 97.6 fl (82-101) 01/14/25 13:13 MCH 31.3 pg (27-33) 01/14/25 13:13 MCHC 32.0 g/dL (30-55) 01/14/25 13:13 RDW 14.2 % (12.1-15.1) 01/14/25 13:13 Plt Count 439 10^3/cmm (157-399) H 01/14/25 13:13 MPV 9.3 fL (7.4-10.4) 01/14/25 13:13 Neut % (Auto) 76.2 % 01/14/25 13:13 Lymph % (Auto) 13.8 % 01/14/25 13:13 [place] % (Auto) 8.0 % 01/14/25 13:13 Eos % (Auto) 0.9 % 01/14/25 13:13 Baso % (Auto) 0.7 % 01/14/25 13:13 Neut # (Auto) 8.06 10^3/uL (1.8-7.7) H 01/14/25 13:13 Lymph # (Auto) 1.5 10^3/uL (0.8-4.8) 01/14/25 13:13 [place] # (Auto) 0.9 10^3/uL (0.2-0.9) 01/14/25 13:13 Eos # (Auto) 0.1 10^3/uL (0.0-0.8) 01/14/25 13:13 Baso # (Auto) 0.1 10^3/uL (0.0-0.1) 01/14/25 13:13 Nucleated RBC % (auto) 0 % 01/14/25 13:13 Nucleated RBCs # 0.0 /100WBC 01/14/25 13:13 Sodium 135 mmol/L (136-145) L 01/14/25 13:13 Potassium 4.5 mmol/L (3.5-5.1) 01/14/25 13:13 Chloride 98 mmol/L (98-107) 01/14/25 13:13 Carbon Dioxide 26 mmol/L (22-29) 01/14/25 13:13 Anion Gap 15.5 (5-19) 01/14/25 13:13 BUN 12 mg/dL (8-23) 01/14/25 13:13 Creatinine 0.8 mg/dL (0.7-1.2) 01/14/25 13:13 GFR Calculation 97.6 mL/min (90-130) 01/14/25 13:13 Glucose 123 mg/dL (65-115) H 01/14/25 13:13 Calculated Osmolality 281 mOsm/kg (285-295) L 01/14/25 13:13 Calcium 10.0 mg/dL (8.5-10.5) 01/14/25 13:13 Total Bilirubin 0.2 mg/dL (0.15-1.2) 01/14/25 13:13 AST 25 U/L (0-40) 01/14/25 13:13 ALT 21 U/L (0-41) 01/14/25 13:13 Alkaline Phosphatase 93 U/L (40-130) 01/14/25 13:13 Total Protein 7.0 g/dL (6.6-8.7) 01/14/25 13:13 Albumin 3.7 g/dL (3.5-5.2) 01/14/25 13:13 Globulin 3.3 g/dL (1.3-4.6) 01/14/25 13:13 No radiology studies performed this visit Discharge Plan Discharge Patient Disposition: Home Clinical Impression: Incisional hernia, Acute postoperative pain of right foot, History of amputation of toe Condition: Stable Prescriptions: New ketorolac 10 mg tablet 10 mg PO Q8H PRN (Reason: pain) Qty: 15 0RF No Action atorvastatin 40 mg tablet 40 mg PO DAILY sulfamethoxazole-trimethoprim 800-160 mg tablet 1 tab PO BID doxycycline hyclate 100 mg tablet 100 mg PO BID aspirin [Rico Low Dose Aspirin] 81 mg Tablet,Delayed Release (Dr/Ec) 81 mg PO DAILY ibuprofen [Advil] 200 mg Tablet 800 mg PO Q6H PRN (Reason: Pain) Discharge Orders: Discharge ED (Routine); Ordered 01/14/25 Ordered By: Khalif Rivero Referrals: Malorie Watson FNP-C [Primary Care Provider, Family Practice] Patient Instructions: Incisional Hernia (DC), Post Operative Pain Activity Restrictions/Additional Instructions: Take Toradol as prescribed. Please do not take more than recommended dose of Tylenol, this is 4 g daily for 4 separate doses of 1 g. Please follow-up with your general surgeon in regards to your incisional hernia and postoperative pain. Please follow-up with your trust operations assistant. Return with any new or worsening. Print Language: Hungarian Coding Level of Care Code ED Signal Processing Engineer for Edgar Patel
== END 2025-01-14 14:29 | disposition home or self-care (01) ==
PROVIDERS: Emergency Provider Physician Assistant; PCP Nurse Practitioner Family
DX: K43.2 Incisional hernia without obstruction or gangrene (principal); G89.18 Other acute postprocedural pain; Z89.421 Acquired absence of other right toe(s); Z79.82 Long term (current) use of aspirin; Z72.0 Tobacco use
CPT/HCPCS: 80053; 80061; 85025; 96374; 96375; 99284; J1171; J2405

== ENCOUNTER 2025-03-30 14:15 | Inpatient (IN) | payer OTHER, SELFPAY ==
--- OUTSIDE RECORDS SUMMARY | 2025-01-14 04:30 | XMS_ITS ---
Author Organization [facility] Address [address] [place] [address] Care Team Providers Care Paint Stripper Name Role Phone Kelsey Gaston Unavailable [phone] Bailee Thompson Unavailable [phone] REASON FOR VISIT [id number] HFU / RN CLINICAL REVIEW - NECROTIC TOE, ORAL ANTIBIOTICS Encounters Encounter Location Date Provider Diagnosis [facility] Internal Medicine & Infectious Disease [address] [place] [id number] 01/14/2025 Bailee Thompson Plan Of Treatment No Information Progress Notes * Donald JAYOB:1960 (64 yo M)Acc No.[id number]:01/14/2025 Patient: Reuben Pitts Provider: Natalia Thompson APRN :1960 A ge:64 Y S ex:Male Date:01/14/2025 Address:[address] [place] [address] [id number] Subjective: * Chief Complaints: * [id number] HFU / RN CLINICAL REVIEW - NECROTIC TOE, ORAL ANTIBIOTICS * Electronic signature of Valdemar Thompson APRN on 03/30/2025 at 02:24 PM CDT Sign off status: Pending * Provider: Natalia Thompson APRN Date: 01/14/2025 Generated for Michelle cole/Sean/eTransmitting on: 0 03/30/2025 02:24 PM CDT
--- OUTSIDE RECORDS SUMMARY | 2025-01-15 05:30 | XMS_ITS ---
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 Encounters Encounter Location Date Provider Diagnosis [facility] [address] [place] [id number] 01/15/2025 Bailee Thompson Plan Of Treatment No Information Progress Notes * Donald JAYOB:1960 (64 yo M)Acc No.[id number]:01/15/2025 Patient: Reuben Pitts Provider: Natalia Thompson APRN :1960 A ge:64 Y S ex:Male Date:01/15/2025 Address:[address] [place] [address] [address] [id number] Subjective: * Chief Complaints: * [id number] 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
--- OUTSIDE RECORDS SUMMARY | 2025-01-15 09:30 | XMS_ITS ---
Author Organization [facility] Address [address] [place] [address] Care Team Providers Care Mechanist Name Role Phone Kelsey Gaston Unavailable [phone] REASON FOR VISIT 10 DAY F/U AORTOBIFEMORAL BYPASS AND RIGHT FEMORAL TO POPLITEAL ARTERY BYPASS-FAWN Encounters Encounter Location Date Provider Diagnosis [facility] [address] [place] [address] [address] [place] [phone] 01/15/2025 Kelsey Gaston Plan Of Treatment No Information Progress Notes * Donald JAYOB:1960 (64 yo M)Acc No.[id number]:01/15/2025 Patient: Reuben Pitts Provider: Nia Gaston CNP :1960 A ge:64 Y S ex:Male Date:01/15/2025 Address:[address] [place] [address] [id number] Subjective: * Chief Complaints: * 1 0 DAY F/U AORTOBIFEMORAL BYPASS AND RIGHT FEMORAL TO POPLITEAL ARTERY BYPASS-FAWN Billing Information: * Procedure Codes: * Electronic signature of Izaiah Gaston CNP on 03/30/2025 at 02:23 PM CDT Sign off status: Pending * Provider: Nia Gaston CNP Date: 01/15/2025 Generated for Michelle cole/Sean/eTransmitting on: 03/30/2025 02:23 PM CDT
[2025-03-30 14:18] VITALS: BP 137/91; PULSE 65; RESP 16; TEMP 36.8; O2SAT 97; BMI 14.1
--- NOTE | 2025-03-30 14:21 | ECG_ITS ---
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 Measurements Intervals [place] Rate: 55 P: 74 TX: 150 QRS: 61 QRSD: 77 T: 60 QT: 448 QTc: 429 Interpretive Statements SINUS BRADYCARDIA Compared to ECG 12/03/2024 10:03:52 Sinus rhythm no longer present Electronically Signed On 03-31-2025 09:51:02 CDT by Nancy Barfield M.D. [email or web address]
--- NOTE | 2025-03-30 14:24 | ED_ITS ---
Documented by User: Brandon Severino DO 03/31/25 06:22 HPI - Abdominal Pain 2 General: Chief Complaint: Abdominal Pain Stated Complaint: abd pain Time Seen by Provider: 03/30/25 14:20 History of Present Illness: 64-year-old male presents emergency room with complaints of abdominal pain x 3 days no other specific complaints difficult to get him to quantify he has a speech impediment. He denies fever he denies dysuria urgency or frequency denies diarrhea. Patient has a large midline laparotomy incision but he cannot relate to me what the surgery was for. Associated Symptoms: Denies chills, dysuria and fever(s) Related Data Home Medications ?Medication ?Instructions ?Recorded ?Confirmed aspirin 81 mg tablet,delayed 81 mg PO DAILY 12/26/24 0 03/30/25 release (Rico Low Dose Aspirin) Allergies Allergy/AdvReac Type Severity Reaction Status Date / Time Penicillins Allergy Unknown Unknown Verified 01/14/25 12:45 Review of Systems 2 Const: Denies: fever(s) or chills Card: Denies: chest pain Resp: Denies: dyspnea GI: Reports: abdominal pain : Denies: dysuria, urinary frequency or urinary urgency Musc: Denies: neck pain or back pain Skin/Breast: Denies: rash PFSH ED 2 PFSH: Medical History 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 Encephalomalacia with cerebral infarction Drug abuse Severe protein-calorie malnutrition Methamphetamine abuse Seizure Chronic pain Osteoarthritis Glaucoma Family History Son DVT (deep venous thrombosis) Social History Smoking and tobacco/nicotine status: current every day tobacco/nicotine user Alcohol intake: current Alcohol intake frequency: holidays/special occasions only Lives independently: Yes Physical Exam 2 Const: COMMON NORMALS: no acute distress GENERAL APPEARANCE: cooperative and comfortable ORIENTATION/CONSCIOUSNESS: Yes awake, Yes oriented to person, Yes oriented to place and Yes oriented to time HENMT: COMMON NORMALS: normocephalic, atraumatic and hearing grossly normal bilaterally HEAD & SCALP: normocephalic and atraumatic Resp: COMMON NORMALS: normal respiratory effort, No retractions, No use of accessory muscles and clear to auscultation bilaterally AUSCULTATION: clear to auscultation bilaterally Cardio: COMMON NORMALS: regular rate, regular rhythm and No murmurs present (Cardio) RATE: regular rate RHYTHM: regular rhythm GI: COMMON NORMALS: Soft to palpation and No hepatosplenomegaly present A USCULTATION: Yes normoactive bowel sounds PALPATION: Yes Soft to palpation, No Tenderness to palpation present (GI), No Guarding due to palpation present (GI) and Yes No hepatosplenomegaly present Extremity: COMMON NORMALS: normal to inspection, capillary refill normal, no clubbing, cyanosis or edema, no calf tenderness and no pedal edema Neuro: SENSORIUM/ORIENTATION: Yes oriented to person, Yes oriented to place and Yes oriented to time Skin: COMMON NORMALS: no rashes or lesions noted GENERAL SKIN EXAM: no rashes or lesions noted Course 2 Vital Signs: Vital signs: Vital Signs Temperature 98.3 F 03/30/25 14:18 Pulse Rate 73 03/30/25 20:41 Respiratory Rate 18 03/30/25 20:41 Blood Pressure 124/57 03/30/25 20:41 Pulse Oximetry 98 03/30/25 20:41 Oxygen Delivery Me thod Room Air 03/30/25 20:41 MDM - Abdominal Pain Medical Decision Making According to the chart patient has had seizures in the past during the postictal phase he gets problems with speech confusion disorientation which is what he presented here like. Later he had actually improved quite a little bit was demanding to go home he was upset because he wanted a cigarette. We ordered pain medicine not yet been given which also frustrated him. We are waiting for the CT at the time we are about to let him go home based on his demand to leave laboratory tests were otherwise unremarkable. He was much more fluent in speech and thought pattern than when he first arrived. In the course of talking to him about going he began to express extreme frustration that he had little to no social support he had chronic medical problems that he did not understand and could not manage and then made a comment that he was going to leave and shoot himself in the head. Continued to escalate despite our efforts to redirect him became more more agitated. We are still waiting for the CT read at the time of this dictation he has been placed on a 96-hour hold pending medical clearance based on his expressed intent of harming himself. Care signed out to Dr. Ramey at change of shift. See final notes for diagnosis and disposition. I spoke with Dr. Andrade who is on-call for psychiatry. He agrees to admission. Workup was negative. Patient had already been placed on a 96-hour hold after declaring he was going to shoot himself in the head Lab Data 03/30/25 15:00 03/30/25 15:00 Labs/Radiology: Radiology Impressions Abdomen/Pelvis CT 03/30/25 14:33 IMPRESSION: 1. Fluid and gas filled small bowel which could reflect enteritis or ileus. 2. Unchanged short-segment colo-colic intussusception involving the distal sigmoid, which should be assessed clinically. 3. No other acute intra-abdominal abnormalities. Laboratory Results WBC 9.49 10^3/uL (3.29-11.43) 03/30/25 15:00 RBC 4.04 10^6/uL (3.85-5.65) 03/30/25 15:00 Hgb 12.30 g/dL (11.27-16.99) 03/30/25 15:00 Hct 39.3 % (37-53) 03/30/25 15:00 MCV 97.3 fl (82-101) 03/30/25 15:00 MCH 30.4 pg (27-33) 03/30/25 15:00 MCHC 31.3 g/dL (30-55) 03/30/25 15:00 RDW 14.3 % (12.1-15.1) 03/30/25 15:00 Plt Count 239 10^3/cmm (157-399) 03/30/25 15:00 MPV 9.9 fL (7.4-10.4) 03/30/25 15:00 Neut % (Auto) 67.1 % 03/30/25 15:00 Lymph % (Auto) 22.1 % 03/30/25 15:00 [place] % (Auto) 7.9 % 03/30/25 15:00 Eos % (Auto) 2.0 % 03/30/25 15:00 Baso % (Auto) 0.6 % 03/30/25 15:00 Neut # (Auto) 6.36 10^3/uL (1.8-7.7) 03/30/25 15:00 Lymph # (Auto) 2.1 10^3/uL (0.8-4.8) 03/30/25 15:00 [place] # (Auto) 0.8 10^3/uL (0.2-0.9) 03/30/25 15:00 Eos # (Auto) 0.2 10^3/uL (0.0-0.8) 03/30/25 15:00 Baso # (Auto) 0.1 10^3/uL (0.0-0.1) 03/30/25 15:00 Nucleated RBC % (auto) 0 % 03/30/25 15:00 Nucleated RBCs # 0.0 /100WBC 03/30/25 15:00 Sodium 139 mmol/L (136-145) 03/30/25 15:00 Potassium 4.5 mmol/L (3.5-5.1) 03/30/25 15:00 Chloride 103 mmol/L (98-107) 03/30/25 15:00 Carbon Dioxide 26 mmol/L (22-29) 03/30/25 15:00 Anion Gap 14.5 (5-19) 03/30/25 15:00 BUN 10 mg/dL (8-23) 03/30/25 15:00 Creatinine 0.7 mg/dL (0.7-1.2) 03/30/25 15:00 GFR Calculation 113.9 mL/min (90-130) 03/30/25 15:00 Glucose 88 mg/dL (65-115) 03/30/25 15:00 Calculated Osmolality 286 mOsm/kg (285-295) 03/30/25 15:00 Calcium 10.0 mg/dL (8.5-10.5) 03/30/25 15:00 Total Bilirubin 0.2 mg/dL (0.15-1.2) 03/30/25 15:00 AST 13 U/L (0-40) 03/30/25 15:00 ALT 10 U/L (0-41) 03/30/25 15:00 Alkaline Phosphatase 84 U/L (40-130) 03/30/25 15:00 Total Protein 6.8 g/dL (6.6-8.7) 03/30/25 15:00 Albumin 4.1 g/dL (3.5-5.2) 03/30/25 15:00 Globulin 2.7 g/dL (1.3-4.6) 03/30/25 15:00 Lipase 31 U/L (13-60) 03/30/25 15:00 Urine Color Yellow (Yellow) 03/30/25 15:45 Urine Appearance Clear (CLEAR) 03/30/25 15:45 Urine pH 6.0 (5-7) 03/30/25 15:45 Ur Specific [place] 1.014 (1.005-1.030) 03/30/25 15:45 Urine Protein Negative (Negative) 03/30/25 15:45 Urine Glucose (UA) Negative (Normal) 03/30/25 15:45 Urine Ketones Negative (Negative) 03/30/25 15:45 Urine Blood Negative (Negative) 03/30/25 15:45 Urine Nitrate Negative (Negative) 03/30/25 15:45 Urine Bilirubin Negative (Negative) 03/30/25 15:45 Urine Urobilinogen 0.2 mg/dL (Negative) 03/30/25 15:45 Ur Leukocyte Esterase Negative (Negative) 03/30/25 15:45 Urine RBC 0-2 /hpf (0-2) 03/30/25 15:45 Urine WBC 0-5 /hpf (0-5) 03/30/25 15:45 Ur Squamous Epith Cells 0-5 /hpf (0-5) 03/30/25 15:45 Amorphous Sediment Not Reportable 03/30/25 15:45 Urine Bacteria None seen /hpf (NONE) 03/30/25 15:45 Hyaline Casts 0-4 /lpf H 03/30/25 15:45 Urine Opiates Screen Positive ng/mL (Negative) H 03/30/25 15:45 Ur Barbiturates Screen Negative ng/mL (Negative) 03/30/25 15:45 Ur Phencyclidine Scrn Negative ng/mL (Negative) 03/30/25 15:45 Ur Amphetamines Screen Negative ng/mL (Negative) 03/30/25 15:45 U Benzodiazepines Scrn Negative ng/mL (Negative) 03/30/25 15:45 Urine Cocaine Screen Negative ng/mL (Negative) 03/30/25 15:45 U Marijuana (THC) Screen Positive ng/mL (Negative) H 03/30/25 15:45 Discharge Plan Discharge Patient Disposition: Admitted As Inpatient Admit Provider: Osmani Andrade Clinical Impression: Abdominal pain, Suicidal ideation, Gastroenteritis, Seizure Condition: Stable Coding Level of Care Code ED Group Captain for Chg Fwd Documented by User: Jennifer Ramey MD 03/30/25 18:32 HPI - Abdominal Pain 2 General: Chief Complaint: Abdominal Pain Stated Complaint: abd pain Time Seen by Provider: 03/30/25 14:20 Related Data Home Medications ?Medication ?Instructions ?Recorded ?Confirmed aspirin 81 mg tablet,delayed 81 mg PO DAILY 12/26/24 0 03/30/25 release ([place]ico Low Dose Aspirin) Allergies Allergy/AdvReac Type Severity Reaction Status Date / Time Penicillins Allergy Unknown Unknown Verified 01/14/25 12:45 PFSH ED 2 PFSH: Medical History 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 Encephalomalacia with cerebral infarction Drug abuse Severe protein-calorie malnutrition Methamphetamine abuse Seizure Chronic pain Osteoarthritis Glaucoma Family History Son DVT (deep venous thrombosis) Social History Smoking and tobacco/nicotine status: current every day tobacco/nicotine user Alcohol intake: current Alcohol intake frequency: holidays/special occasions only Lives independently: Yes Course 2 Vital Signs: Vital signs: Vital Signs Temperature 98.3 F 03/30/25 14:18 Pulse Rate 73 03/30/25 20:41 Respiratory Rate 18 03/30/25 20:41 Blood Pressure 124/57 03/30/25 20:41 Pulse Oximetry 98 03/30/25 20:41 Oxygen Delivery Me thod Room Air 03/30/25 20:41 MDM - Abdominal Pain Medical Decision Making To the chart patient has had seizures in the past during the postictal phase he gets problems with speech confusion disorientation which is what he presented here like. Later he had actually improved quite a little bit was demanding to go home he was upset because he wanted a cigarette. We ordered pain medicine not yet been given which also frustrated him. We are waiting for the CT at the time we are about to let him go home based on his demand to leave laboratory tests were otherwise unremarkable. He was much more fluent in speech and thought pattern than when he first arrived. In the course of talking to him about going he began to express extreme frustration that he had little to no social support he had chronic medical problems that he did not understand and could not manage and then made a comment that he was going to leave and shoot himself in the head. Continued to escalate despite our efforts to redirect him became more more agitated. We are still waiting for the CT read at the time of this dictation he has been placed on a 96-hour hold pending medical clearance based on his expressed intent of harming himself. Care signed out to Dr. Ramey at change of shift. See final notes for diagnosis and disposition. I spoke with Dr. Andrade who is on-call for psychiatry. He agrees to admission. Workup was negative. Patient had already been placed on a 96-hour hold after declaring he was going to shoot himself in the head Lab Data 03/30/25 15:00 03/30/25 15:00 Labs/Radiology: Radiology Impressions Abdomen/Pelvis CT 03/30/25 14:33 IMPRESSION: 1. Fluid and gas filled small bowel which could reflect enteritis or ileus. 2. Unchanged short-segment colo-colic intussusception involving the distal sigmoid, which should be assessed clinically. 3. No other acute intra-abdominal abnormalities. Laboratory Results WBC 9.49 10^3/uL (3.29-11.43) 03/30/25 15:00 RBC 4.04 10^6/uL (3.85-5.65) 03/30/25 15:00 Hgb 12.30 g/dL (11.27-16.99) 03/30/25 15:00 Hct 39.3 % (37-53) 03/30/25 15:00 MCV 97.3 fl (82-101) 03/30/25 15:00 MCH 30.4 pg (27-33) 03/30/25 15:00 MCHC 31.3 g/dL (30-55) 03/30/25 15:00 RDW 14.3 % (12.1-15.1) 03/30/25 15:00 Plt Count 239 10^3/cmm (157-399) 03/30/25 15:00 MPV 9.9 fL (7.4-10.4) 03/30/25 15:00 Neut % (Auto) 67.1 % 03/30/25 15:00 Lymph % (Auto) 22.1 % 03/30/25 15:00 [place] % (Auto) 7.9 % 03/30/25 15:00 Eos % (Auto) 2.0 % 03/30/25 15:00 Baso % (Auto) 0.6 % 03/30/25 15:00 Neut # (Auto) 6.36 10^3/uL (1.8-7.7) 03/30/25 15:00 Lymph # (Auto) 2.1 10^3/uL (0.8-4.8) 03/30/25 15:00 [place] # (Auto) 0.8 10^3/uL (0.2-0.9) 03/30/25 15:00 Eos # (Auto) 0.2 10^3/uL (0.0-0.8) 03/30/25 15:00 Baso # (Auto) 0.1 10^3/uL (0.0-0.1) 03/30/25 15:00 Nucleated RBC % (auto) 0 % 03/30/25 15:00 Nucleated RBCs # 0.0 /100WBC 03/30/25 15:00 Sodium 139 mmol/L (136-145) 03/30/25 15:00 Potassium 4.5 mmol/L (3.5-5.1) 03/30/25 15:00 Chloride 103 mmol/L (98-107) 03/30/25 15:00 Carbon Dioxide 26 mmol/L (22-29) 03/30/25 15:00 Anion Gap 14.5 (5-19) 03/30/25 15:00 BUN 10 mg/dL (8-23) 03/30/25 15:00 Creatinine 0.7 mg/dL (0.7-1.2) 03/30/25 15:00 GFR Calculation 113.9 mL/min (90-130) 03/30/25 15:00 Glucose 88 mg/dL (65-115) 03/30/25 15:00 Calculated Osmolality 286 mOsm/kg (285-295) 03/30/25 15:00 Calcium 10.0 mg/dL (8.5-10.5) 03/30/25 15:00 Total Bilirubin 0.2 mg/dL (0.15-1.2) 03/30/25 15:00 AST 13 U/L (0-40) 03/30/25 15:00 ALT 10 U/L (0-41) 03/30/25 15:00 Alkaline Phosphatase 84 U/L (40-130) 03/30/25 15:00 Total Protein 6.8 g/dL (6.6-8.7) 03/30/25 15:00 Albumin 4.1 g/dL (3.5-5.2) 03/30/25 15:00 Globulin 2.7 g/dL (1.3-4.6) 03/30/25 15:00 Lipase 31 U/L (13-60) 03/30/25 15:00 Urine Color Yellow (Yellow) 03/30/25 15:45 Urine Appearance Clear (CLEAR) 03/30/25 15:45 Urine pH 6.0 (5-7) 03/30/25 15:45 Ur Specific [place] 1.014 (1.005-1.030) 03/30/25 15:45 Urine Protein Negative (Negative) 03/30/25 15:45 Urine Glucose (UA) Negative (Normal) 03/30/25 15:45 Urine Ketones Negative (Negative) 03/30/25 15:45 Urine Blood Negative (Negative) 03/30/25 15:45 Urine Nitrate Negative (Negative) 03/30/25 15:45 Urine Bilirubin Negative (Negative) 03/30/25 15:45 Urine Urobilinogen 0.2 mg/dL (Negative) 03/30/25 15:45 Ur Leukocyte Esterase Negative (Negative) 03/30/25 15:45 Urine RBC 0-2 /hpf (0-2) 03/30/25 15:45 Urine WBC 0-5 /hpf (0-5) 03/30/25 15:45 Ur Squamous Epith Cells 0-5 /hpf (0-5) 03/30/25 15:45 Amorphous Sediment Not Reportable 03/30/25 15:45 Urine Bacteria None seen /hpf (NONE) 03/30/25 15:45 Hyaline Casts 0-4 /lpf H 03/30/25 15:45 Urine Opiates Screen Positive ng/mL (Negative) H 03/30/25 15:45 Ur Barbiturates Screen Negative ng/mL (Negative) 03/30/25 15:45 Ur Phencyclidine Scrn Negative ng/mL (Negative) 03/30/25 15:45 Ur Amphetamines Screen Negative ng/mL (Negative) 03/30/25 15:45 U Benzodiazepines Scrn Negative ng/mL (Negative) 03/30/25 15:45 Urine Cocaine Screen Negative ng/mL (Negative) 03/30/25 15:45 U Marijuana (THC) Screen Positive ng/mL (Negative) H 03/30/25 15:45 All radiology interpretation(s) finalized by discharge Discharge Plan Discharge Patient Disposition: Admitted As Inpatient Admit Provider: Osmani Andrade Clinical Impression: Abdominal pain, Suicidal ideation, Gastroenteritis, Seizure Condition: Stable Coding Level of Care Code ED Group Captain for Edgar Patel
--- OUTSIDE RECORDS SUMMARY | 2025-03-30 14:24 | XMS_ITS | Patient Health Record ---
Author Organization [facility] Address [address] [place] [address] Care Team Providers Care Director Of Cardiac Cath Lab Name Role Phone Kelsey Gaston Unavailable [phone] Bailee Thompson Unavailable [phone] Demian Healyor Unavailable [phone] Allergies Allergen (clinical drug ingredient) Drug/Non Drug Allergy documented on EMR Reaction Allergy Type Onset Date Status Penicillin Unknown Drug Allergy Active Results Component Value Reference Range Flag Notes Vancomycin Trough 97915 (Not yet reviewed by provider) Interpretation: Performing Lab: Notes/Report: Vanco Tr 12.1 8.0-20.0 MCG/ML Drug Screen Multi Panel 8030 5 (Not yet reviewed by provider) Interpretation: Performing Lab: Notes/Report: Marijuana-THC Positive Speciman analysis was performed without chain of custody handling. Testing performed by colorimetric method. Confirmation is pending. These resuts should be used for medical purposes only and not for any legal or employment evaluative purposes. In very rare instances, and extremely high drug concentration may field a negative result for any qualitative drug screening assay. The potential for false negative results in these rare instances exsists for all drug screening methods. Specimen Type: Urine Cutoff value: 50 ng/mL Cocaine-MITZI Negative Specimen analysis was performed without chain of custody handling. Testing performed by colorimetric method. Confirmation is pending. These resuts should be used for medical purposes only and not for any legal or employment evaluative purposes. In very rare instances, and extremely high drug concentration may field a negative result for any qualitative drug screening assay. The potential for false negative results in these rare instances exsists for all drug screening methods. Specimen Type: Urine Cutoff value: 300 ng/mL Opiates-MOP Negative Speciman analysis was performed without chain of custody handling. Testing performed by colorimetric method. Confirmation is pending. These resuts should be used for medical purposes only and not for any legal or employment evaluative purposes. In very rare instances, and extremely high drug concentration may field a negative result for any qualitative drug screening assay. The potential for false negative results in these rare instances exsists for all drug screening methods. Specimen Type: Urine Cutoff value: 2000 ng/mL Amphetamine-AMP Negative Speciman analysis was performed without chain of custody handling. Testing performed by colorimetric method. Confirmation is pending. These resuts should be used for medical purposes only and not for any legal or employment evaluative purposes. In very rare instances, and extremely high drug concentration may field a negative result for any qualitative drug screening assay. The potential for false negative results in these rare instances exsists for all drug screening methods. Specimen Type: Urine Cutoff value: 1000 ng/mL Methamphetamines-MET Negative Speciman analysis was performed without chain of custody handling. Testing performed by colorimetric method. Confirmation is pending. These resuts should be used for medical purposes only and not for any legal or employment evaluative purposes. In very rare instances, and extremely high drug concentration may field a negative result for any qualitative drug screening assay. The potential for false negative results in these rare instances exsists for all drug screening methods. Specimen Type: Urine Cutoff value: 1000 ng/mL Phencyclidine-PCP Negative Speciman analysis was performed without chain of custody handling. Testing performed by colorimetric method. Confirmation is pending. These resuts should be used for medical purposes only and not for any legal or employment evaluative purposes. In very rare instances, and extremely high drug concentration may field a negative result for any qualitative drug screening assay. The potential for false negative results in these rare instances exsists for all drug screening methods. Specimen Type: Urine Cutoff value: 25 ng/mL Ecstasy-MDMA Negative Speciman analysis was performed without chain of custody handling. Testing performed by colorimetric method. Confirmation is pending. These resuts should be used for medical purposes only and not for any legal or employment evaluative purposes. In very rare instances, and extremely high drug concentration may field a negative result for any qualitative drug screening assay. The potential for false negative results in these rare instances exsists for all drug screening methods. Specimen Type: Urine Cutoff value: 500 ng/mL Barbiturates-BAR Negative Speciman analysis was performed without chain of custody handling. Testing performed by colorimetric method. Confirmation is pending. These resuts should be used for medical purposes only and not for any legal or employment evaluative purposes. In very rare instances, and extremely high drug concentration may field a negative result for any qualitative drug screening assay. The potential for false negative results in these rare instances exsists for all drug screening methods. Specimen Type: Urine Cutoff value: 300 ng/mL Benzodiazepines-BZO Negative Speciman analysis was performed without chain of custody handling. Testing performed by colorimetric method. Confirmation is pending. These resuts should be used for medical purposes only and not for any legal or employment evaluative purposes. In very rare instances, and extremely high drug concentration may field a negative result for any qualitative drug screening assay. The potential for false negative results in these rare instances exsists for all drug screening methods. Specimen Type: Urine Cutoff value: 300 ng/mL Methadone-MTD Negative Speciman analysis was performed without chain of custody handling. Testing performed by colorimetric method. Confirmation is pending. These resuts should be used for medical purposes only and not for any legal or employment evaluative purposes. In very rare instances, and extremely high drug concentration may field a negative result for any qualitative drug screening assay. The potential for false negative results in these rare instances exsists for all drug screening methods. Specimen Type: Urine Cutoff value: 300 ng/mL Oxycodone-OXY Negative Speciman analysis was performed without chain of custody handling. Testing performed by colorimetric method. Confirmation is pending. These resuts should be used for medical purposes only and not for any legal or employment evaluative purposes. In very rare instances, and extremely high drug concentration may field a negative result for any qualitative drug screening assay. The potential for false negative results in these rare instances exsists for all drug screening methods. Specimen Type: Urine Cutoff value: 100 ng/mL Buprenorphine-BUP Negative Analysis was performed without chain of custody handling. Testing performed by colorimetric method. Confirmation is pending. These resuts should be used for medical purposes only and not for any legal or employment evaluative purposes. In very rare instances, and extremely high drug concentration may field a negative result for any qualitative drug screening assay. The potential for false negative results in these rare instances exsists for all drug screening methods. Specimen Type: Urine Cutoff value: 10 ng/mL Platelet Pheresis--P9035 (No t yet reviewed by provider) Interpretation: Performing Lab: Notes/Report: Number of Units 2 NA Product Type Blood Product NA PRBC-LR--P9016 (Not yet revi ewed by provider) Interpretation: Performing Lab: Notes/Report: Number of Units 2 NA Product Type Blood Product NA THC Confirmation--G0480 (Not yet reviewed by provider) Interpretation: Performing Lab: Notes/Report: Marijuana Confirmation 90 NA Specimen analysis was performed without chain of custody handling. These results should be used for medical purposes only and not for any legal or employment evaluative purposes. In very rare instances, an extremely high drug concentration may field a negative result for any qualitative drug-screening assay. The potential for false negative results in these rare instances exist for all drug-screening methods. Test was performed at: [facility] [address] [place] [address] Basic Metabolic Panel (BMP) 32977 (Not yet reviewed by provider) Interpretation: Performing Lab: Notes/Report: Sodium 143 136-145 MMOL/L Potassium 3.8 3.5-5.1 MMOL/L Chloride 113 98-107 MMOL/L HI CO2 23.6 20.0-31.0 MMOL/L Glucose Serum 144 71-110 MG/DL HI Testing p erformed at [facility], [address] [place] [address] [place] [address]. CLIA ID#: [id number] BUN 9 7-21 MG/DL Creat .59 .57-1.17 MG/DL G-yfdplv-k-benzoquin one imine (NAPQI) is a metabolite of acetaminophen, NAPQI concentrations of apparoximately 10 mg/L correlation to toxic levels of acetaminophen demonstrates a greater than or equil to 10% change in results. NAPQI concentrations greater than this may lead to falsely depressed results for patient samples. Use of this assay is not recommended for patients undergoing treatment with phenindione, due to the potential for falsely depressed results. GFR 109.1 NA Calculation pe rformed from GFR calculator provided by the [employer]. Glomerular Filtration rate(GRF) is the best overall index of kidney function. Normal GFR varies according to age,sex, body size, and declines with age. The National Kid[employer] recommends using the CKD-EPI Creatinine Equation(2020) to estimate GFR. Anion Gap 10 5-15 BUN/Creat Ratio 15.3 12.0-20.0 % Calcium 8.9 8.7-10.4 MG/DL Osmo Serum,Calculated 297 280-300 MOSM/KG Comprehensive Metabolic Pane l (CMP) 73250 (Not yet reviewed by provider) Interpretation: Performing Lab: Notes/Report: Glucose Serum 144 71-110 MG/DL HI Testing p erformed at [facility], [address] [place] [address] [place] [address]. CLIA ID#: [id number] BUN 9 7-21 MG/DL Creat .59 .57-1.17 MG/DL T-czaqan-a-benzoquin one imine (NAPQI) is a metabolite of acetaminophen, NAPQI concentrations of apparoximately 10 mg/L correlation to toxic levels of acetaminophen demonstrates a greater than or equil to 10% change in results. NAPQI concentrations greater than this may lead to falsely depressed results for patient samples. Use of this assay is not recommended for patients undergoing treatment with phenindione, due to the potential for falsely depressed results. GFR 109.1 NA Calculation pe rformed from GFR calculator provided by the [employer]. Glomerular Filtration rate(GRF) is the best overall index of kidney function. Normal GFR varies according to age,sex, body size, and declines with age. The National Kid[employer] recommends using the CKD-EPI Creatinine Equation(2020) to estimate GFR. BUN/Creat Ratio 15.3 12.0-20.0 % Total Protein 5.4 5.8-8.0 G/DL LOW Albumin 3.3 3.2-4.8 G/DL Globulin 2.1 2.3-3.5 G/DL LOW Alb/Glob 1.6 0.8-2.2 Calcium 8.9 8.7-10.4 MG/DL Sodium 143 136-145 MMOL/L Potassium 3.8 3.5-5.1 MMOL/L Chloride 113 98-107 MMOL/L HI CO2 23.6 20.0-31.0 MMOL/L Anion Gap 10 5-15 Alk Phos 59 46-116 Bili Total .4 .3-1.2 MG/DL Use of this assay is not recommended for patients undergoing treatment with eltrombopag due to the potential for falsely elevated results. AST/SGOT 13 15-37 UNIT/L LOW ALT/SGPT <7 12-78 UNIT/L LOW Osmo Serum,Calculated 297 280-300 MOSM/KG Magnesium (B) 88699 (Not yet reviewed by provider) Interpretation: Performing Lab: Notes/Report: Magnesium 1.6 1.8-2.4 MG/DL LOW Phosphorus (B) 56183 (Not ye t reviewed by provider) Interpretation: Performing Lab: Notes/Report: Phos 2.7 2.4-5.1 MG/DL CBC Reflex Man Diff 68080, 8 5007 (Not yet reviewed by provider) Interpretation: Performing Lab: Notes/Report: WBC 20.8 4.5-11.0 X10'3 HI RBC 3.94 4.50-5.90 X10'6 LOW Hgb 12.4 13.5-17.5 G/DL LOW noted Hct 38.5 41.0-53.0 % LOW MCV 97.7 80.0-100.0 FL MCH 31.5 27.0-31.0 PG HI MCHC 32.2 31.0-37.0 G/DL Platelet 262 150-400 X10'3 RDW-SD 50.8 35.0-49.0 FL HI RDW-CV 13.9 12.2-15.6 % MPV 10.5 9.2-12.0 FL Review Auto Diff Conf WBC Auto Diff--51429 (Not ye t reviewed by provider) Interpretation: Performing Lab: Notes/Report: Added by Discern Rules Neutro Auto% 91.8 40.0-70.0 % HI Lymph Auto% 4.5 22.0-44.0 % LOW [place] Auto% 2.6 3.0-7.0 % LOW Eos Auto% .1 2.0-4.0 % LOW Baso Auto% 0.2 0.0-1.0 % NRBC% .00 .00-.20 /100 intact WBC's Neutro Abs 19.13 .80-7.70 HI Absolute Neutrophil Count 26379 NA Lymph Abs .93 .10-4.10 [place] Abs .55 .20-1.00 Eos Abs .03 .00-.40 Baso Abs .04 .00-.20 NRBC# .00 .00-.20 Imm Gran Abs .17 .00-.10 HI Imm Gran% .8 .0-.4 % HI [id number]-K--NO PCT (Not yet reviewed by provider) Interpretation: Performing Lab: Notes/Report: POCT- pH 7.46 7.35-7.45 HI POCT- pCO2 37.2 35.0-48.0 MMHG POCT- pO2 575.70 83.00-108.00 MMHG HI POCT- HCO3 26.6 21.0-23.0 MMOL/L HI POCT- BE 2.8 -2.0-3.0 MEQ/L POCT- O2 Sat 100.0 95.0-98.0 % HI POCT-Hct 31 35-51 % LOW POCT- K 3.6 3.4-4.5 MMOL/L POCT- NA 143 NA POCT- CL 104.0 NA POCT- TCO2 26 NA POCT- Glucose 113 NA [id number]-K--NO PCT (Not yet reviewed by provider) Interpretation: Performing Lab: Notes/Report: POCT- pH 7.44 7.35-7.45 POCT- pCO2 34.0 35.0-48.0 MMHG LOW POCT- pO2 252.10 83.00-108.00 MMHG HI POCT- HCO3 23.2 21.0-23.0 MMOL/L HI POCT- BE -.6 -2.0-3.0 MEQ/L POCT- O2 Sat 99.9 95.0-98.0 % HI POCT-Hct 29 35-51 % LOW POCT- K 3.6 3.4-4.5 MMOL/L POCT- NA 143 NA POCT- CL 108.0 NA POCT- TCO2 22 NA POCT- Glucose 143 NA [id number]-K--NO PCT (Not yet reviewed by provider) Interpretation: Performing Lab: Notes/Report: POCT- pH 7.46 7.35-7.45 HI POCT- pCO2 37.2 35.0-48.0 MMHG POCT- pO2 259.40 83.00-108.00 MMHG HI POCT- HCO3 26.7 21.0-23.0 MMOL/L HI POCT- BE 2.8 -2.0-3.0 MEQ/L POCT- O2 Sat 99.9 95.0-98.0 % HI POCT-Hct 26 35-51 % LOW POCT- K 3.5 3.4-4.5 MMOL/L POCT- NA 147 NA POCT- CL 110.0 NA POCT- TCO2 26 NA POCT- Glucose 152 NA Comprehensive Metabolic Pane l (CMP) 11191 (Not yet reviewed by provider) Interpretation: Performing Lab: Notes/Report: Glucose Serum 113 71-110 MG/DL HI Testing p marisa at [facility], [address] [place] [address] [place] [address]. CLIA ID#: [id number] BUN 10 7-21 MG/DL Creat .61 .57-1.17 MG/DL D-kmtajd-n-benzoquin one imine (NAPQI) is a metabolite of acetaminophen, NAPQI concentrations of apparoximately 10 mg/L correlation to toxic levels of acetaminophen demonstrates a greater than or equil to 10% change in results. NAPQI concentrations greater than this may lead to falsely depressed results for patient samples. Use of this assay is not recommended for patients undergoing treatment with phenindione, due to the potential for falsely depressed results. GFR 107.8 NA Calculation pe rformed from GFR calculator provided by the [employer]. Glomerular Filtration rate(GRF) is the best overall index of kidney function. Normal GFR varies according to age,sex, body size, and declines with age. The National Kid[employer] Foundation recommends using the CKD-EPI Creatinine Equation(202) to estimate GFR. BUN/Creat Ratio 16.4 12.0-20.0 % Total Protein 5.1 5.8-8.0 G/DL LOW Albumin 3.1 3.2-4.8 G/DL LOW Globulin 2.0 2.3-3.5 G/DL LOW Alb/Glob 1.6 0.8-2.2 Calcium 10.0 8.7-10.4 MG/DL Sodium 140 136-145 MMOL/L Potassium 4.3 3.5-5.1 MMOL/L Chloride 107 98-107 MMOL/L CO2 27.4 20.0-31.0 MMOL/L Anion Gap 10 5-15 Alk Phos 51 46-116 Bili Total .3 .3-1.2 MG/DL Use of this assay is not recommended for patients undergoing treatment with eltrombopag due to the potential for falsely elevated results. AST/SGOT 17 15-37 UNIT/L ALT/SGPT 8 12-78 UNIT/L LOW Osmo Serum,Calculated 290 280-300 MOSM/KG CBC Reflex Man Diff 37533, 8 5007 (Not yet reviewed by provider) Interpretation: Performing Lab: Notes/Report: WBC 17.8 4.5-11.0 X10'3 HI RBC 3.27 4.50-5.90 X10'6 LOW Hgb 10.3 13.5-17.5 G/DL LOW Hct 31.8 41.0-53.0 % LOW MCV 97.2 80.0-100.0 FL MCH 31.5 27.0-31.0 PG HI MCHC 32.4 31.0-37.0 G/DL Platelet 252 150-400 X10'3 RDW-SD 51.5 35.0-49.0 FL HI RDW-CV 14.1 12.2-15.6 % MPV 10.0 9.2-12.0 FL Review Auto Diff Conf WBC Auto Diff--94599 (Not ye t reviewed by provider) Interpretation: Performing Lab: Notes/Report: Added by Discern Rules Neutro Auto% 82.3 40.0-70.0 % HI Lymph Auto% 7.6 22.0-44.0 % LOW [place] Auto% 9.4 3.0-7.0 % HI Eos Auto% .1 2.0-4.0 % LOW Baso Auto% 0.1 0.0-1.0 % NRBC% .00 .00-.20 /100 intact WBC's Neutro Abs 14.72 .80-7.70 HI Absolute Neutrophil Count 39254 NA Lymph Abs 1.35 .10-4.10 [place] Abs 1.67 .20-1.00 HI Eos Abs .01 .00-.40 Baso Abs .01 .00-.20 NRBC# .00 .00-.20 Imm Gran Abs .09 .00-.10 Imm Gran% .5 .0-.4 % HI Chest inspiratory/expiratory -79166 (Not yet reviewed by provider) Interpretation: Performing Lab: Notes/Report: [id number] Chest inspiratory/expiratory -43389 (Not yet reviewed by provider) Interpretation: Performing Lab: Notes/Report: See Below For Report Chest inspiratory/expiratory 12/31/2024 07:43 called rpt to rn Read See Below For Report CBC Reflex Man Diff 07314, 8 5007 Reviewed date:01/05/2025 09:04:23 AM Interpretation: Performing Lab: Notes/Report: WBC 12.6 4.5-11.0 X10'3 HI RBC 3.05 4.50-5.90 X10'6 LOW Hgb 9.7 13.5-17.5 G/DL LOW Hct 30.2 41.0-53.0 % LOW MCV 99.0 80.0-100.0 FL MCH 31.8 27.0-31.0 PG HI MCHC 32.1 31.0-37.0 G/DL Platelet 271 150-400 X10'3 RDW-SD 50.6 35.0-49.0 FL HI RDW-CV 13.9 12.2-15.6 % MPV 10.2 9.2-12.0 FL Review Auto Diff Conf WBC Auto Diff--57625 Reviewed date:01/05/2025 09:04:23 AM Interpretation: Performing Lab: Notes/Report: Added by Discern Rules Neutro Auto% 71.8 40.0-70.0 % HI Lymph Auto% 14.2 22.0-44.0 % LOW [place] Auto% 11.2 3.0-7.0 % HI Eos Auto% 2.0 2.0-4.0 % Baso Auto% 0.2 0.0-1.0 % NRBC% .00 .00-.20 /100 intact WBC's Neutro Abs 9.06 .80-7.70 HI Absolute Neutrophil Count 9060 NA Lymph Abs 1.79 .10-4.10 [place] Abs 1.41 .20-1.00 HI Eos Abs .25 .00-.40 Baso Abs .03 .00-.20 NRBC# .00 .00-.20 Imm Gran Abs .07 .00-.10 Imm Gran% .6 .0-.4 % HI Chest 1V Reviewed date:01/05/2025 09:04:31 AM Interpretation: Performing Lab: Notes/Report: [id number] Vancomycin Trough 49455 (Not yet reviewed by provider) Interpretation: Performing Lab: Notes/Report: Vanco Tr 15.1 8.0-20.0 MCG/ML CBC w\o Diff 41401 (Not yet reviewed by provider) Interpretation: Performing Lab: Notes/Report: WBC 13.9 4.5-11.0 X10'3 HI RBC 3.07 4.50-5.90 X10'6 LOW Hgb 9.8 13.5-17.5 G/DL LOW Hct 30.6 41.0-53.0 % LOW MCV 99.7 80.0-100.0 FL MCH 31.9 27.0-31.0 PG HI MCHC 32.0 31.0-37.0 G/DL Platelet 276 150-400 X10'3 RDW-SD 50.4 35.0-49.0 FL HI RDW-CV 13.7 12.2-15.6 % MPV 10.0 9.2-12.0 FL Culture, Tissue--49031 (Not yet reviewed by provider) Interpretation: Performing Lab: Notes/Report: Culture Tissue AMARILYS Edwards Culture Tissue t: Culture Tissue Culture Tissue Access [id number] Culture Tissue n: Culture Tissue Microbiology Culture Tissue PROCEDURE: Culture Tissue [] Culture Tissue SOURCE: Tissue BODY SITE: Toe Culture Tissue COLLECTED DATE/TIME: 01/02/2025 11:30 CDT RECEIVED DATE/TIME: 01/02/2025 13:28 CDT Culture Tissue START DATE/TIME: 01/02/2025 13:28 CDT FREE TEXT SOURCE: right 3rd toe Culture Tissue FINAL REPORT Culture Tissue Final Report [] Culture Tissue Verified Date/Time: 01/04/2025 10:56 CDT Culture Tissue Few Achromobacter xylosoxidans Culture Tissue SUSCEPTIBILITY RESULTS Culture Tissue Achxyl Culture Tissue Antibiotic MDIL MINT Culture Tissue Aztreonam >=64 Resistant Culture Tissue Meropenem 0.5 Susceptible Culture, Tissue--69961 (Not yet reviewed by provider) Interpretation: Performing Lab: Notes/Report: Culture Tissue AMARILYS Edwards Culture Tissue t: Culture Tissue Culture Tissue Accessio [id number] Culture Tissue n: Culture Tissue Microbiology Culture Tissue PROCEDURE: Culture Tissue [] Culture Tissue SOURCE: Tissue BODY SITE: Culture Tissue COLLECTED DATE/TIME: 01/02/2025 11:15 CDT RECEIVED DATE/TIME: 01/02/2025 13:27 CDT Culture Tissue START DATE/TIME: 01/02/2025 13:27 CDT FREE TEXT SOURCE: right 4 th toe Culture Tissue FINAL REPORT Culture Tissue Final Report [] Culture Tissue Verified Date/Time: 01/04/2025 10:56 CDT Culture Tissue Many Achromobacter xylosoxidans Culture Tissue SUSCEPTIBILITY RESULTS Culture Tissue Achxyl Culture Tissue Antibiotic MDIL MINT Culture Tissue Aztreonam >=64 Resistant Culture Tissue Meropenem 1 Susceptible Basic Metabolic Panel (BMP) 55540 Reviewed date:01/05/2025 09:04:23 AM Interpretation: Performing Lab: Notes/Report: Sodium 141 136-145 MMOL/L Potassium 3.8 3.5-5.1 MMOL/L Chloride 106 98-107 MMOL/L CO2 30.7 20.0-31.0 MMOL/L Glucose Serum 133 71-110 MG/DL HI Testing p erformed at [facility], [address] [place] [address] [place] [address]. CLIA ID#: [id number] BUN 8 7-21 MG/DL Creat .62 .57-1.17 MG/DL H-igzioz-q-benzoquin one imine (NAPQI) is a metabolite of acetaminophen, NAPQI concentrations of apparoximately 10 mg/L correlation to toxic levels of acetaminophen demonstrates a greater than or equil to 10% change in results. NAPQI concentrations greater than this may lead to falsely depressed results for patient samples. Use of this assay is not recommended for patients undergoing treatment with phenindione, due to the potential for falsely depressed results. GFR 107.2 NA Calculation pe rformed from GFR calculator provided by the [employer]. Glomerular Filtration rate(GRF) is the best overall index of kidney function. Normal GFR varies according to age,sex, body size, and declines with age. The National Kidney Foundation recommends using the CKD-EPI Creatinine Equation(2020) to estimate GFR. Anion Gap 8 5-15 BUN/Creat Ratio 12.9 12.0-20.0 % Calcium 8.9 8.7-10.4 MG/DL Osmo Serum,Calculated 292 280-300 MOSM/KG Magnesium (B) 69557 Reviewed date:01/05/2025 09:04:23 AM Interpretation: Performing Lab: Notes/Report: Magnesium 1.7 1.8-2.4 MG/DL LOW [place] 61813, 8 5007 Reviewed date:01/05/2025 09:04:23 AM Interpretation: Performing Lab: Notes/Report: WBC 11.3 4.5-11.0 X10'3 HI RBC 2.96 4.50-5.90 X10'6 LOW Hgb 9.4 13.5-17.5 G/DL LOW Hct 29.7 41.0-53.0 % LOW MCV 100.3 80.0-100.0 FL HI MCH 31.8 27.0-31.0 PG HI MCHC 31.6 31.0-37.0 G/DL Platelet 312 150-400 X10'3 RDW-SD 48.9 35.0-49.0 FL RDW-CV 13.3 12.2-15.6 % MPV 9.9 9.2-12.0 FL Review Auto Diff Conf WBC Auto Diff--13306 Reviewed date:01/05/2025 09:04:23 AM Interpretation: Performing Lab: Notes/Report: Added by Discern Rules Neutro Auto% 72.5 40.0-70.0 % HI Lymph Auto% 12.4 22.0-44.0 % LOW [place] Auto% 10.4 3.0-7.0 % HI Eos Auto% 3.5 2.0-4.0 % Baso Auto% 0.5 0.0-1.0 % NRBC% .00 .00-.20 /100 intact WBC's Neutro Abs 8.20 .80-7.70 HI Absolute Neutrophil Count 8200 NA Lymph Abs 1.41 .10-4.10 [place] Abs 1.18 .20-1.00 HI Eos Abs .40 .00-.40 Baso Abs .06 .00-.20 NRBC# .00 .00-.20 Imm Gran Abs .08 .00-.10 Imm Gran% .7 .0-.4 % HI MRI LE Non-JT w/ + w/o Cont RT-81829 Reviewed date:01/07/2025 08:06:50 AM Interpretation: Performing Lab: Notes/Report: [id number] MRI LE Non-JT w/ + w/o Cont RT-40535 Reviewed date:01/07/2025 07:54:21 AM Interpretation: Performing Lab: Notes/Report: See Below For Report MRI LE Non-JT w/ + w/o Cont RT Read See Below For Report Chest 1V Reviewed date:01/05/2025 09:04:23 AM Interpretation: Performing Lab: Notes/Report: See Below For Report Chest 1V Read See Below For Report Magnesium (B) 87782 Reviewed date:01/05/2025 09:04:31 AM Interpretation: Performing Lab: Notes/Report: Magnesium 1.7 1.8-2.4 MG/DL LOW Comprehensive Metabolic Pane l (CMP) 13316 Reviewed date:01/05/2025 09:04:31 AM Interpretation: Performing Lab: Notes/Report: Glucose Serum 87 71-110 MG/DL Testing p erformed at [facility], [address] [place] [address] [place] [address]. CLIA ID#: [id number] BUN 9 7-21 MG/DL Creat .61 .57-1.17 MG/DL N-bycxcg-r-benzoquin one imine (NAPQI) is a metabolite of acetaminophen, NAPQI concentrations of apparoximately 10 mg/L correlation to toxic levels of acetaminophen demonstrates a greater than or equil to 10% change in results. NAPQI concentrations greater than this may lead to falsely depressed results for patient samples. Use of this assay is not recommended for patients undergoing treatment with phenindione, due to the potential for falsely depressed results. GFR 107.8 NA Calculation pe rformed from GFR calculator provided by the [employer]. Glomerular Filtration rate(GRF) is the best overall index of kidney function. Normal GFR varies according to age,sex, body size, and declines with age. The [employer] recommends using the CKD-EPI Creatinine Equation(2020) to estimate GFR. BUN/Creat Ratio 14.8 12.0-20.0 % Total Protein 4.3 5.8-8.0 G/DL LOW Albumin 2.7 3.2-4.8 G/DL LOW Globulin 1.6 2.3-3.5 G/DL LOW Alb/Glob 1.7 0.8-2.2 Calcium 9.5 8.7-10.4 MG/DL Sodium 142 136-145 MMOL/L Potassium 3.9 3.5-5.1 MMOL/L Chloride 107 98-107 MMOL/L CO2 30.9 20.0-31.0 MMOL/L Anion Gap 8 5-15 Alk Phos 50 46-116 Bili Total .2 .3-1.2 MG/DL LOW Use of this assay is not recommended for patients undergoing treatment with eltrombopag due to the potential for falsely elevated results. AST/SGOT 15 15-37 UNIT/L ALT/SGPT 8 12-78 UNIT/L LOW Osmo Serum,Calculated 292 280-300 MOSM/KG WBC Auto Diff--99911 Reviewed date:01/05/2025 09:04:23 AM Interpretation: Performing Lab: Notes/Report: Added by Discern Rules Neutro Auto% 73.7 40.0-70.0 % HI Lymph Auto% 12.9 22.0-44.0 % LOW [place] Auto% 10.1 3.0-7.0 % HI Eos Auto% 2.4 2.0-4.0 % Baso Auto% 0.3 0.0-1.0 % NRBC% .00 .00-.20 /100 intact WBC's Neutro Abs 10.55 .80-7.70 HI Absolute Neutrophil Count 93743 NA Lymph Abs 1.85 .10-4.10 [place] Abs 1.44 .20-1.00 HI Eos Abs .34 .00-.40 Baso Abs .05 .00-.20 NRBC# .00 .00-.20 Imm Gran Abs .08 .00-.10 Imm Gran% .6 .0-.4 % HI CBC Reflex Man Diff 80867, 8 2581 Reviewed date:01/05/2025 09:04:23 AM Interpretation: Performing Lab: Notes/Report: WBC 14.3 4.5-11.0 X10'3 HI RBC 3.13 4.50-5.90 X10'6 LOW Hgb 9.8 13.5-17.5 G/DL LOW Hct 31.1 41.0-53.0 % LOW MCV 99.4 80.0-100.0 FL MCH 31.3 27.0-31.0 PG HI MCHC 31.5 31.0-37.0 G/DL Platelet 314 150-400 X10'3 RDW-SD 49.6 35.0-49.0 FL HI RDW-CV 13.5 12.2-15.6 % MPV 10.5 9.2-12.0 FL Review Auto Diff Conf Magnesium (B) 08529 Reviewed date:01/05/2025 09:04:23 AM Interpretation: Performing Lab: Notes/Report: Magnesium 1.7 1.8-2.4 MG/DL LOW Basic Metabolic Panel (BMP) 46619 Reviewed date:01/05/2025 09:04:23 AM Interpretation: Performing Lab: Notes/Report: Sodium 140 136-145 MMOL/L Potassium 3.8 3.5-5.1 MMOL/L Chloride 104 98-107 MMOL/L CO2 31.0 20.0-31.0 MMOL/L Glucose Serum 90 71-110 MG/DL Testing p erformed at [facility], [address] [place] [address] [place] [address]. CLIA ID#: [id number] BUN 7 7-21 MG/DL Creat .59 .57-1.17 MG/DL V-kuktmy-f-benzoquin one imine (NAPQI) is a metabolite of acetaminophen, NAPQI concentrations of apparoximately 10 mg/L correlation to toxic levels of acetaminophen demonstrates a greater than or equil to 10% change in results. NAPQI concentrations greater than this may lead to falsely depressed results for patient samples. Use of this assay is not recommended for patients undergoing treatment with phenindione, due to the potential for falsely depressed results. GFR 109.0 NA Calculation pe rformed from GFR calculator provided by the [employer]. Glomerular Filtration rate(GRF) is the best overall index of kidney function. Normal GFR varies according to age,sex, body size, and declines with age. The National [employer] recommends using the CKD-EPI Creatinine Equation(2020) to estimate GFR. Anion Gap 9 5-15 BUN/Creat Ratio 11.9 12.0-20.0 % LOW Calcium 9.6 8.7-10.4 MG/DL Osmo Serum,Calculated 287 280-300 MOSM/KG Vancomycin Trough 17955 (Not yet reviewed by provider) Interpretation: Performing Lab: Notes/Report: Vanco Tr 16.6 8.0-20.0 MCG/ML Reason For Referral No Information Medications Medication SIG (Take, Route, Frequency, Duration) Notes Start Date End Date Status Atorvastatin Calcium 40 MG Tablet 1 tablet Orally Once a day; Duration: 30 day(s) 01/13/2025 Active Acetaminophen 325 MG Tablet 1 tablet as needed Orally every 6 hrs 01/13/2025 Active Social History Tobacco Use: Social History Observation Description Date Details (start date - stop date) Current Smoker NA - NA Social History Tobacco Use: Social Info Question Answer Notes Tobacco Control (Standard) Tobacco use: Current smoker How often do you smoke cigarettes? Every day Additional Details Category Social Info Options Details Drugs/Alcohol: Do you smoke marijuana? Ad mits Problems Problem Type SNOMED Code ICD Code Onset Dates Problem Status W/U Status Risk Notes Problem Stimulant dependence (644303727) Other stimulant dependence, uncomplicated (F15.20) Active confirmed Problem Pain at rest of left lower limb due to atherosclerosis (disorder) (23786021497414345 ) Atherosclerosis of [place] arteries of extremities with rest pain, left leg (I70.222) Active confirmed Problem Gangrene of right lower limb due to atherosclerosis (disorder) (81270701609997840 ) Atherosclerosis of [place] arteries of extremities with gangrene, right leg (I70.261) Active confirmed Problem Absence of toe (857699260) Acquired absence of other right toe(s) (Z89.421) Active confirmed Problem Tobacco user (305325616) Dependence on nicotine from cigarettes (F17.210) Active confirmed Problem Long-term current use of anticoagulant (073119734) Anticoagulated (Z79.01) Active confirmed Problem Atherosclerosis of aorta (30345497) Stenosis of infrarenal abdominal aorta due to arteriosclerosis (I70.0) Active confirmed Problem Gangrene (39401196) Gangrene (I96) Active confirmed Problem Gangrene of toe of right foot (17643206529717204 ) Gangrene of toe of right foot (I96) Active confirmed Problem Intermittent claudication of left lower limb co-occurrent and due to atherosclerosis (finding) (66445450365484199 ) Atheroscler of [place] artery of left leg with intermit claudication (I70.212) Active confirmed Encounters Encounter Location Date Provider Diagnosis [facility] [address] [place] [address] 01/20/2025 Kenny Healy [facility] [address] [place] [address] 01/13/2025 Kelsey Gaston [facility] [address] [place] [address] [place] [address] 01/20/2025 Bailee Damonpool [facility] [address] [place] [address] 12/30/2024 Kenny Healy Plan Of Treatment Pending Test Test Name Order Date Basic Metabolic Panel (BMP) 51540 2024 Comprehensive Metabolic Panel (CMP) 8005 3 12/30/2024 Comprehensive Metabolic Panel (CMP) 8005 3 12/31/2024 Magnesium (B) 17309 12/30/2024 Phosphorus (B) 68720 12/30/2024 Vancomycin Trough 86171 12/29/2024 Vancomycin Trough 91482 12/31/2024 Vancomycin Trough 29872 01/01/2025 CBC Reflex Man Diff 06775, 16338 025 CBC Reflex Man Diff 75760, 10166 025 CBC w\o Diff 53001 01/01/2025 Drug Screen Multi Panel 69043 12/29/2024 Chest inspiratory/expiratory-40083 12/31 Chest inspiratory/expiratory-14438 12/31 Platelet Pheresis--P9035 12/29/2024 PRBC-LR--P9016 12/29/2024 WBC Auto Diff--38046 12/30/2024 WBC Auto Diff--19329 12/31/2024 Culture, Tissue--76191 01/02/2025 Culture, Tissue--97217 01/02/2025 [id number]-[id number]-K--NO PCT 12/30/2024 BZOC-[id number]-[id number]-K--NO PCT 12/30/2024 ZZAQ-FHB-AGE-K--NO PCT 12/30/2024 THC Confirmation--[id number] 12/29/2024 Insurance Providers Payer Name Payer Address Payer Phone Subscriber Number Group Number Insured Name Patient Relationship to Insured Coverage Start Date Coverage End Date Danielle FORD [address] [phone] [id number] Huseyin Amarilys Self - patient is the insured Medical (General) History Medical History History ICD Code Gangrenous right 3rd toe Peripheral Artery Disease Stenosis of infrarenal abdominal aorta d ue to atherosclerosis tobacco dependence Methamphetamine abuse Hypertension Seizure disorder History of strokes with resolved deficit s Surgical History Surgery Date(Month/Year) aortobifemoral bypass occlus kayley disease using bifurcated graft, Right RN WOUND CARE to above knee poplilteal artery bypass , creation of omental pedicled flap, Transabdominis plane block 12/30/2024 amputation of right third toe, right fou rth toe- Dr Healy 01/02/2025 Hospitalization History Reason Date(Month/Year) see surgical history
--- NOTE | 2025-03-30 14:33 | CTR_ITS ---
PROCEDURE INFORMATION: Exam: CT Abdomen And Pelvis With Contrast Exam date and time: 03/30/2025 3:50 PM Age: 64 years old Clinical indication: Abdominal pain; Generalized; Additional info: Abd pain TECHNIQUE: Imaging protocol: Computed tomography of the abdomen and pelvis with contrast. Radiation optimization: All CT scans at this facility use at least one of these dose optimization techniques: automated exposure control; mA and/or kV adjustment per patient size (includes targeted exams where dose is matched to clinical indication); or iterative reconstruction. Contrast material: OMNI 350; Contrast volume: 90 ml; Contrast route: INTRAVENOUS (IV); COMPARISON: 1. CT angio abd aorta runof [id number] 12/26/2024 12:[address] [place] [id number] 11/04/2023 1:25 PM RADIATION DOSE METRICS: Total DLP (mGy-cm): 293.8 FINDINGS: Lungs: Lung bases are unremarkable. Liver: Right and left lobe hepatic cysts are unchanged. Gallbladder and biliary ducts: The gallbladder remains normal. Unchanged common duct caliber up to 6.6 mm, without obstructing focus identified. No intrahepatic biliary dilatation. Pancreas: The pancreas is unremarkable. Spleen: The spleen is unremarkable. Adrenal glands: Mild thickening of the left adrenal gland is unchanged. Focal nodule is not identified. Kidneys and ureters: No hydronephrosis or nephrolithiasis. Stomach and bowel: No bowel dilatation. Gas and fluid mildly distends the majority of the small bowel. Focal colo-colic intussusception in the distal sigmoid region is unchanged. Appendix: Normal appendix. Intraperitoneal space: No significant peritoneal free fluid. No free peritoneal air. Vasculature: There has been interval infrarenal abdominal aorta/iliac artery bypass. The bypass graft is patent. Severe narrowing involves the origin of the celiac artery, which is partially obscured by motion artifact. Distal celiac artery branches are enhanced. The [place] left SFA is small in caliber. The right SFA has been bypassed. Lymph nodes: Unremarkable. No enlarged lymph nodes. Urinary bladder: No focal wall thickening of the urinary bladder. Reproductive: The prostate is enlarged. Bones/joints: Unchanged mild L1 compression fracture. No suspicious osseous lesions. Soft tissues: Unremarkable. CT/CT abdomen pelvis w con* [id number] IMPRESSION: 1. Fluid and gas filled small bowel which could reflect enteritis or ileus. 2. Unchanged short-segment colo-colic intussusception involving the distal sigmoid, which should be assessed clinically. 3. No other acute intra-abdominal abnormalities.
[2025-03-30 15:11] LABS: Hematocrit 39.3 % (37-53); Hemoglobin 12.30 g/dL (11.27-16.99); Mean Corpuscular HGB Conc 31.3 g/dL (30-55); Mean Corpuscular Hemoglobin 30.4 pg (27-33); Mean Corpuscular Volume 97.3 fl (82-101); Nucleated Red Blood Cells % 0 %; Platelet Count 239 10^3/cmm (157-399); Red Blood Count 4.04 10^6/uL (3.85-5.65); White Blood Count 9.49 10^3/uL (3.29-11.43)
[2025-03-30 15:20] VITALS: BP 166/93; PULSE 60; O2SAT 97
[2025-03-30 15:32] LABS: Alanine Aminotransferase 10 U/L (0-41); Albumin Level 4.1 g/dL (3.5-5.2); Alkaline Phosphatase 84 U/L (40-130); Anion Gap 14.5 (5-19); Aspartate Amino Transferase 13 U/L (0-40); Blood Urea Nitrogen 10 mg/dL (8-23); Calcium 10.0 mg/dL (8.5-10.5); Carbon Dioxide 26 mmol/L (22-29); Chloride 103 mmol/L (98-107); Creatinine Clr Calc Pharmacy 58.9035; Globulin 2.7 g/dL (1.3-4.6); Glucose 88 mg/dL (65-115); Lipase 31 U/L (13-60); Osmolality Calculated 286 mOsm/kg (285-295); Potassium 4.5 mmol/L (3.5-5.1); Sodium 139 mmol/L (136-145); Total Protein 6.8 g/dL (6.6-8.7)
[2025-03-30] MEDS: iohexol 350 mg/mL 500 mL Btl (per mL) IV (15:55)
[2025-03-30 16:06] LABS: Glucose Urine UA Negative (Normal); Nitrate Urine Negative (Negative); Specific Gravity, Urine 1.014 (1.005-1.030)
[2025-03-30 16:08] LABS: Add Urine Microscopic? YES
--- NOTE | 2025-03-30 16:26 | PC.NURSE ---
PT is pacing room cussing at staff stating things like kayley been here two hours i need a fucking cigarette PT educated that he could not go smoke without being DC'D or signing out AMA. PT states he will not stay here without a cigarette. Refused to be hooked up to vitals to receive pain medication. PT was educated that we are still waiting on CT to be read, PT refused to wait. Physician notified.
[2025-03-30] MEDS: LORazepam 1 MG/0.5 ML injection IVP (16:52)
[2025-03-30] MEDS: morphine 4 mg/mL SDV 1 mL 2 MG IVP (16:52)
--- NOTE | 2025-03-30 16:57 | PC.NURSE ---
PATIENT BECAME AGGRESSIVE WITH FLOOR NURSE ABOUT NOTHING BE DONE FOR HIS CARE. THIS NURSE ENTERS THE ROOM AND EXPLAINS TO PATIENT WAITING ON LAB WORK AND CT READ. PATIENT CONTINUES TO ESCALATE AND SAYS THAT HE WANTS TO LEAVE. DR KNOX NOTIFIED. PATIENT THEN MAKES SUICIDAL PATIENTS TO DR KNOX. PATIENT PLACED ON 96 HOUR HOLD DUE TO PATIENT STATEMENTS. PATIENT CONTINUES TO ESCALATE AND CODE 10 CALLED. PATIENT CHANGED IN ROOM TO GREEN SCRUBS AND MOVED TO FRY BED FOR 1:1 SITTER OBSERVATION.
--- NOTE | 2025-03-30 17:19 | PC.NURSE ---
96 hr rights reviewed with pt @1103 with assistance of [facility] inspectors and regulatory officers Matthias Hernandez All education reviewed with pt at this time. Pt was verbally upset to hold. Said he understood the hold parameters, but was not in agreeance with them HS gave pt a copy of his rights. Pt not cleared medically and cannot have a drink of snack at this time.
[2025-03-30 19:44] VITALS: BP 162/81; PULSE 75; RESP 16; O2SAT 97
[2025-03-30 19:50] LABS: PCP Screen Urine Negative (Negative)
[2025-03-30 20:15] VITALS: BP 124/57; PULSE 73; RESP 18; O2SAT 98
[2025-03-30 20:19] LABS: Alcohol Level < 10 mg/dL (0-10)
[2025-03-30 20:39] VITALS: BP 162/81; PULSE 75; RESP 16; O2SAT 97
[2025-03-30 20:41] VITALS: BP 124/57; PULSE 73; RESP 18; O2SAT 98
[2025-03-31 06:00] VITALS: RESP 18
--- NOTE | 2025-03-31 06:22 | PC.NURSE ---
Patient refused nurse notified.
--- NOTE | 2025-03-31 09:12 | P.NPUHP_ITS ---
Providers/Chief Complaint 2 Admitting Physician: Osmani Andrade MD Primary Care Provider: EMILE Garcia Chief Complaint: abd pain HPI NPU History of Present Illness Reuben Fontanez is a 64 year old male who presented to the emergency department with the following report: Chief Complaint: Abdominal Pain Stated Complaint: abd pain Time Seen by Provider: 03/30/25 14:20 History of Present Illness: 64-year-old male presents emergency room with complaints of abdominal pain x 3 days no other specific complaints difficult to get him to quantify he has a speech impediment. He denies fever he denies dysuria urgency or frequency denies diarrhea. Patient has a large midline laparotomy incision but he cannot relate to me what the surgery was for. Associated Symptoms: Denies chills, dysuria and fever(s) outpatient. He was admitted to the neuro psychiatric unit for definitive treatment of those issues. Specifically the fact that he was making a suicidal threat that seem to be connected with his pain syndrome. He is known to the emergency department here at [facility] through 5 visits in the past 17 months. He is unknown to psychiatry through inpatient or outpatient services. He denies any history of ever being in inpatient before or had any outpatient services either. He does report tobacco, limited alcohol and significant marijuana use. He denies other drug use currently but has a UDS currently positive for cannabis and opiates and a UDS from 4 months ago that was positive for cannabis, cocaine and methamphetamine. He denies any desire or need for drug and alcohol treatment. He reported that he is not suffering from any mental illness denying depression and anxiety or any other issues only reports that his pain was bad and he was hoping to get pain medication but got frustrated when he was not getting the help that he thought he needed. He reports that he has 1 son and that he lives with his son. He reports that he is not from around here but moved to the area specifically [place] a couple years ago. He reports that he worked in the past but has not worked for some time. He reports that he is on welfare and apparently has been applying for disability. He reports that he has been in the past and might still be reporting that he and his were together for 17 years. He reports that this was all a misunderstanding and he does not need to be here. We discussed that he is on a 96-hour hold and that we will need to get collateral information to ensure that he would be safe for discharge. He currently lives in a motel and has been living there as far as he could recall more or less since he came in the area. He reported significant medical comorbidities with seizure disorder, past history of stroke, multiple surgical procedures including an abdominal surgery. He has had at least 2 toes removed from his right foot but denied diabetes and carries a diagnosis of peripheral vascular disease. He also has had significant seizures witnessed in his limited visits here to [facility] and has had neurology involved identifying clear pathology in his head CTs. 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 Encephalomalacia with cerebral infarction Drug abuse Severe protein-calorie malnutrition Methamphetamine abuse Seizure Chronic pain Osteoarthritis Glaucoma Family History Son DVT (deep venous thrombosis) Social History Smoking and tobacco/nicotine status: current every day tobacco/nicotine user Alcohol intake: current Alcohol intake frequency: holidays/special occasions only Lives independently: Yes Mental Status Exam 2 MSE Comments: This is an underweight/cachectic white male in hospital scrubs looking quite disheveled and older than his stated age with poor grooming but adequate eye contact. No abnormal movements except for mild to moderate psychomotor agitation. Cooperative with exam and mild to moderate distress. Speech was somewhat dysarthric but increased rate and normal volume. Mood described as fine, affect odd. Thought process linear. Thought content: Patient denied suicidal or homicidal ideation, no delusions reported or noted, he denied any auditory or visual hallucinations. Attention and concentration appeared intact and memory appeared mostly reliable but none were formally tested. He is alert and oriented x 3. Insight and judgment appear limited and impulse control limited versus impaired. Vitals/I&O/Wt Last Vital Signs Temp 98.3 F 03/30/25 14:18 Pulse 73 03/30/25 20:41 Resp 18 03/31/25 06:00 BP 124/57 03/30/25 20:41 Pulse Ox 98 03/30/25 20:41 O2 Del Method Room Air 03/30/25 20:41 Weight last 48 hrs Weight 38.555 kg Data NPU 03/30/25 15:00 03/30/25 15:00 A&P Assessment and plan 1. Postictal psychosis: 2. Drug withdrawal delirium: 3. Suicidal ideation: 4. Seizure: Plan: This is a 64-year-old white male who presented to the emergency department with pain issues and ultimately made a suicidal statement related to being in pain. He presents now denying any history of mental health issues and only limited issues of addiction reporting marijuana and cigarette use. However observation of his UDS's done during his presentations in the emergency department here show 2 with methamphetamine and cannabis one of them also having cocaine present, and this 1 with cannabis and opiates. He reports however that he was just acting out of frustration but he was not given something for it. And that he has no intention of killing himself and never has. He denies ever being in a psychiatric facility and reports he will be safe to go home. 1. Continue current medication. 2. Continue every 15 minute checks for safety. 3. Encourage individual, group and milieu therapies. 4. Encourage sober living treatment after discharge at the highest level of care to which she is willing to commit. 5. Obtain collateral information. Hopefully son will be able to identify whether any concerns or safety exist. 6. Evaluate against the backdrop of the 96-hour hold. PDMP PDMP Reviewed: Not Reviewed Involuntary Hold Information 2 Hold Status: Legal Status: 96 Hour Hold Date/Time Hold Expires: 0 04/03/25@16:50 Attestations NPU 2 Medical Necessity Statement*: Inpatient hospitalization is medically necessary and the clinically appropriate intervention at this time. We will monitor/initiate medications and make changes as indicated. He will be in the hospital for over 2 midnights. Likely length of stay 2-4 days. Coding Level of Care Code Acute Code for g Fwd Diagnoses Postictal psychosis F23 Drug withdrawal delirium F19.931 Suicidal ideation R45.851 Seizure R56.9
[2025-03-31 14:00] VITALS: BP 145/86; PULSE 83; RESP 18; TEMP 36.6; O2SAT 96
[2025-03-31 19:36] VITALS: BP 156/86; PULSE 82; RESP 18; TEMP 36.7; O2SAT 98
[2025-04-01 06:00] VITALS: BP 136/84; PULSE 88; RESP 18; TEMP 37.1; O2SAT 99
[2025-04-01 14:00] VITALS: BP 155/94; PULSE 76; RESP 18; TEMP 37.1; O2SAT 98
[2025-04-01 14:32] VITALS: BP 155/94; PULSE 76; RESP 18; TEMP 36.7; O2SAT 98
== END 2025-04-01 15:58 | disposition home or self-care (01) | DRG 885 ==
LOC: ER 18:24 → NP 18:38
PROVIDERS: Family Medicine; Admitting Provider Psychiatry & Neurology Psychiatry; Emergency Provider Emergency Medicine; PCP Nurse Practitioner Family; Visit Provider Psychiatry & Neurology Psychiatry
DX: F23 Brief psychotic disorder (principal); E43 Unspecified severe protein-calorie malnutrition; F19.931 Other psychoactive substance use, unspecified with withdrawal delirium; R45.851 Suicidal ideations; Z68.1 Body mass index [BMI] 19.9 or less, adult; G89.4 Chronic pain syndrome; G40.909 Epilepsy, unspecified, not intractable, without status epilepticus; F15.10 Other stimulant abuse, uncomplicated; H40.9 Unspecified glaucoma; F17.210 Nicotine dependence, cigarettes, uncomplicated; Z86.73 Personal history of transient ischemic attack (TIA), and cerebral infarction without residual deficits
CPT/HCPCS: 36415; 74177; 80053; 80306; 80307; 81001; 83690; 85025; 93005; 97165; 99285; J0780; J2060; J2270; J9999